=== PATIENT | male | born 1945 | race Caucasian/White ===

== ENCOUNTER 2017-03-09 02:22 | Inpatient (IN) | payer OTHER ==
[~2017-03-09] VITALS: Ht 152.4 cm; Wt 150.0 kg
[2017-03-09 02:33] VITALS: TEMP 96.6; Ht 152.4 cm; Wt 150.0 kg
[2017-03-09] MEDS ORDERED: morphine 4 MG/ML VIAL IV STA (03:07)
[2017-03-09] MEDS ORDERED: SOD CHLORIDE 0.9% 1,000 ML IV STA (03:07)
[2017-03-09] MEDS ORDERED: ONDANSETRON 4 MG INJ IV STA (03:07)
[2017-03-09 04:05] LABS: BASOPHIL # 0.1 10^3/ul (0.0-0.1); BASOPHILS % 0.4 % (0.0-2.0); EOSINOPHILS % 0.1 % (0.0-7.0); HEMATOCRIT 34.2 % (42.0-52.0); HEMOGLOBIN 11.6 g/dl (14.0-18.0); LYMPHOCYTES # 1.3 10^3/ul (0.8-2.9); LYMPHOCYTES % 8.9 % (15.0-51.0); MEAN CORPUSCULAR HEMOGLOBIN 30.2 pg (29.0-33.0); MEAN CORPUSCULAR HGB CONC 33.9 g/dl (32.0-37.0); MEAN CORPUSCULAR VOLUME 89.1 fl (82.0-101.0); MEAN PLATELET VOLUME 10.4 fl (7.4-10.4); MONOCYTE # 0.7 10^3/ul (0.3-0.9); MONOCYTES % 4.9 % (0.0-11.0); NEUTROPHIL # 12.5 10^3/ul (1.6-7.5); NEUTROPHILS % 84.8 % (39.0-77.0); PLATELET COUNT 236 10^3/UL (140-415); RED BLOOD COUNT 3.84 10^6/ul (4.70-6.10); RED CELL DISTRIBUTION WIDTH 12.8 % (11.5-14.5); WHITE BLOOD COUNT 14.8 10^3/ul (4.8-10.8)
--- NOTE | 2017-03-09 04:21 | RADRPT ---
PROCEDURE: CT Brain without contrast. CLINICAL INDICATION: Fall, headache TECHNIQUE: A CT of the brain was performed utilizing axial imaging from the skull base through the vertex without intravenous contrast. Multiplanar reformatted images were made.The CTDIvol is 41.12 mGy and the DLP is 810.25 mGycm. One or more the following dose reduction techniques were utilized: Automated exposure control, adjus tment of the mA and / or kV according to patient's size, or use of iterative reconstruction techniqu e. DICOM images are available. COMPARISON: None. FINDINGS: There is no intracranial hemorrhage, mass effect, or midline shift. No extra-axial fluid collection is seen. Mild atrophy is identified with compensatory ventricular and sulcal enlargement. Mild to moderate decreased attenuation is seen in the periventricular and deep white matter, compatible wit h microvascular ischemic disease. The may white matter differentiation is well preserved with no ac eddi infarct detected. There is an approximate 5 mm calcification in the upper right frontal parietal centrum semiovale which could represent a granuloma. No skull fracture seen. There is mucosal thick ening in right maxillary sinus consistent with chronic sinusitis. There is deformity of the right zy gomatic arch and posterior lateral wall of the right maxillary sinus consistent with old fractures. Arterial calcification. IMPRESSION: 1. No evidence of acute intracranial pathology. 2. Mild diffuse atrophy. 3. There is mild to moderate microvascular ischemic disease in the periventricular and deep white m atter. RPTAT: HJES .Raghavendra Arevalo MD, MD Date Time Electronically viewed and signed by .Raghavendra Arevalo MD, MD on 03/09/2017 04:20 .S/
--- NOTE | 2017-03-09 04:29 | RADRPT ---
PROCEDURE: CT Cervical Spine. CLINICAL INDICATION: Fall, neck pain TECHNIQUE: A CT of the cervical spine was performed utilizing thin section axial images from the skull base through the thoracic inlet. Sagittal and coronal reformatted images were made. The CTDI vol is 22.22 mGy and the DLP is 494.13 mGycm. One or more the following dose reduction techniques were utilized: Automated exposure control, adjus tment of the mA and / or kV according to patient's size, or use of iterative reconstruction techniqu e. DICOM images are available. COMPARISON: None. FINDINGS: No acute fracture is seen. There is 2 mm anterior displacement of C4 vertebral body on C5 and 3 mm a nterior displacement of C7 vertebral body on T1 consistent with degenerative changes. Degenerative d isc changes at multiple levels greatest at C5-6 and C6-7. Facet degenerative changes throughout the cervical spine. Degenerative changes at the joint between the anterior arch of C1 and the dens. Unco vertebral degenerative changes throughout the cervical spine. There is minimal curvature of the cerv ical spine with convexity to the right. At C4-5 there is right foraminal stenosis. At C5-6 there is left foraminal stenosis. At C6-7 there is bilateral foraminal stenosis. Status post ORIF of proximal left humerus with plate and screws. IMPRESSION: No acute fracture seen. Degenerative changes. Please see above. RPTAT: HJES .Raghavendra Arevalo MD, MD Date Time Electronically viewed and signed by .Raghavendra Arevalo MD, on 03/09/2017 04:28 .S/
[2017-03-09 04:42] LABS: ALBUMIN 4.3 g/dl (3.3-4.9); ALBUMIN/GLOBULIN RATIO 1.22; BILIRUBIN,INDIRECT 0.2 mg/dl (0-1.1); BILIRUBIN,TOTAL 0.2 mg/dl (0.2-1.3); CALCIUM 8.2 mg/dl (8.4-10.2); CREATININE 1.41 mg/dl (0.61-1.24); POTASSIUM 3.7 mmol/L (3.5-5.1); TOTAL PROTEIN 7.8 g/dl (6.1-8.1)
[2017-03-09 04:53] LABS: TROPONIN-I 0.028 ng/ml (0.00-0.12)
[2017-03-09 04:59] LABS: ADD UMIC YES; UR ASCORBIC ACID NEGATIVE (NEGATIVE); UR BILIRUBIN (Dip) NEGATIVE (NEGATIVE); UR BLOOD (Dip) 2+ mg/dL (NEGATIVE); UR CLARITY CLEAR (CLEAR); UR COLOR STRAW (YELLOW); UR GLUCOSE (Dip) NEGATIVE (NEGATIVE); UR KETONES (Dip) NEGATIVE (NEGATIVE); UR LEUKOCYTE ESTERASE (Dip) NEGATIVE Leu/ul (NEGATIVE); UR NITRITE (Dip) NEGATIVE (NEGATIVE); UR RBC 5 /HPF (0-5); UR SPECIFIC GRAVITY (Dip) 1.008 (1.003-1.030); UR TOTAL PROTEIN (Dip) 2+ mg/dl (NEGATIVE); UR UROBILINOGEN (Dip) NEGATIVE (NEGATIVE)
--- NOTE | 2017-03-09 05:40 | RADRPT ---
PROCEDURE: CHEST - 1 VIEW CLINICAL INDICATION: 71-year-old male with chest/abdominal pain. TECHNIQUE: A single frontal AP semi-erect portable view of the chest was performed. The images we re reviewed on a PACS workstation. COMPARISON: None. FINDINGS: The cardiomediastinal silhouette is within normal limits. There is a shallow inspiration with elevat ion right hemidiaphragm. There is mild right basilar subsegmental atelectasis. There is no evidence for an infiltrate. There is no evidence for congestive heart failure. There is no evidence for pne umothorax. There is a plate and multiple screws within the proximal left humerus. IMPRESSION: 1. Shallow inspiration with elevated right hemidiaphragm. 2. Mild right basilar subsegmental atelectasis. 3. Status post left proximal humerus ORIF. .Mahad Huerta MD, Date Time Electronically viewed and signed by .Mahad Huerta MD, on 03/09/2017 05:39 .M/
--- NOTE | 2017-03-09 05:45 | RADRPT ---
PROCEDURE: LEFT ELBOW - 6 VIEWS CLINICAL INDICATION: 71-year-old male with trauma and left elbow pain. TECHNIQUE: AP, lateral and oblique views of the left elbow were obtained. The images were viewed on a PACS workstation. COMPARISON: None. FINDINGS: There is no evidence for an acute fracture or dislocation. There is evidence for marked degenerative changes within the elbow joint involving the humeroradial, humeroulnar and radioulnar joints with n arrowing and sclerosis. Osteophyte formation is noted. The partially visualized radioulnar joint spa ce appears intact. The bone marrow mineralization is within normal limits. IMPRESSION: 1. No acute fracture or dislocation. 2. Degenerative changes elbow joint. .Mahad Huerta MD, Date Time Electronically viewed and signed by .Mahad Huerta MD, on 03/09/2017 05:45 .M/
--- NOTE | 2017-03-09 05:50 | RADRPT ---
PROCEDURE: LEFT HIP - 3 VIEWS CLINICAL INDICATION: 71-year-old male with trauma and left hip pain. TECHNIQUE: AP and frog lateral views of the left hip were performed. The images reviewed on a PACS workstation. COMPARISON: None. FINDINGS: There are changes are seen within the partially visualized lower lumbar spine. There is a displaced left femoral mid neck transcervical fracture present with shortening and overriding. Degenerative ch anges are seen within the hip joint without evidence for dislocation. Vascular calcifications are pr esent. IMPRESSION: 1. Acute left femoral neck transcervical fracture. 2. Mild left hip degenerative changes without dislocation. 3. Vascular calcifications. .Mahad Huerta MD, MD Date Time Electronically viewed and signed by .Mahad Huerta MD, on 03/09/2017 05:50 .Lorena/
--- NOTE | 2017-03-09 07:19 | ERD ---
ER Documentation Chief Complaint Chief Complaint HPI This 71 old male presents for hip pain after a fall while he was drunk. Patient is intoxicated and states that he fell when he felt fine and did not have any chest pain. He does not think that he hit his head. He has an abrasion on his elbow but states that it does not hurt his maximum pain is coming from his left hip on the trochanter. Denies medical problems. ROS All systems reviewed and are negative except as per history of present illness the patient is unreliable because he is intoxicated.. PMhx/Soc Medical and Surgical Hx: Unable to obtain Hx Miscellaneous Medical Probl: Yes (DIABETES) Hx Alcohol Use: Yes (POSITIVE ETOH USE TONIGHT) Smoking Status: Unknown if ever smoked Physical Exam Vitals Vital Signs Date Time Temp Pulse Resp B/P Pulse Ox O2 Delivery O2 Flow Rate FiO2 03/09/17 05:00 108 18 160/81 93 Room Air 03/09/17 02:33 96.6 100 21 136/67 96 03/09/17 02:33 96.6 100 21 136/67 96 Room Air Physical Exam Const: [] No distress Head: Atraumatic Eyes: Normal Conjunctiva ENT: Normal External Ears, Nose and Mouth. Neck: Full range of motion..~Midline tenderness.. Resp: Clear to auscultation bilaterally Cardio: Regular rate and rhythm, no murmurs Abd: Soft, non tender, non distended. Normal bowel sounds Skin: No petechiae or rashes Back: No midline or flank tenderness Ext: No cyanosis, or edema, pain at left greater trochanter. Patient is unwilling to move his leg secondary to pain. Neur: Awake and alert and oriented 3, cranial nerves through 2 through 12 grossly intact, slurred speech with obvious intoxication. Unable to perform full neurological exam secondary to patient's unwillingness to move because of hip pain. Left elbow with abnormal contour and abrasions. Does not have tenderness. Psych: Normal Mood and Affect Result Diagram: 03/09/1732803/09/17328 Results 24 hrs Laboratory Tests Test 03/09/17 03:29 03/09/17 04:30 White Blood Count 14.810^3/ul Red Blood Count 3.8410^6/ul Hemoglobin 11.6g/dl Hematocrit 34.2% Mean Corpuscular Volume 89.1fl Mean Corpuscular Hemoglobin 30.2pg Mean Corpuscular Hemoglobin Concent 33.9g/dl Red Cell Distribution Width 12.8% Platelet Count 07648^3/UL Mean Platelet Volume 10.4fl Neutrophils % 84.8% Lymphocytes % 8.9% Monocytes % 4.9% Eosinophils % 0.1% Basophils % 0.4% Nucleated Red Blood Cells % 0.0/100WBC Neutrophils # 12.510^3/ul Lymphocytes # 1.310^3/ul Monocytes # 0.710^3/ul Eosinophils # 0.010^3/ul Basophils # 0.110^3/ul Nucleated Red Blood Cells # 0.010^3/ul Sodium Level 131mmol/L Potassium Level 3.7mmol/L Chloride Level 91mmol/L Carbon Dioxide Level 25mmol/L Anion Gap 19 Blood Urea Nitrogen 26mg/dl Creatinine 1.41mg/dl Glucose Level 146mg/dl Calcium Level 8.2mg/dl Total Bilirubin 0.2mg/dl Direct Bilirubin 0.00mg/dl Indirect Bilirubin 0.2mg/dl Aspartate Amino Transf (AST/SGOT) 44IU/L Alanine Aminotransferase (ALT/SGPT) 40IU/L Alkaline Phosphatase 95IU/L Troponin I 0.028ng/ml Total Protein 7.8g/dl Albumin 4.3g/dl Globulin 3.50g/dl Albumin/Globulin Ratio 1.22 Ethyl Alcohol Level 195.0mg/dl Urine Color STRAW Urine Clarity CLEAR Urine pH 5.0 Urine Specific [place] 1.008 Urine Ketones NEGATIVEmg/dL Urine Nitrite NEGATIVEmg/dL Urine Bilirubin NEGATIVEmg/dL Urine Urobilinogen NEGATIVEmg/dL Urine Leukocyte Esterase NEGATIVELeu/ul Urine Microscopic RBC 5/HPF Urine Microscopic WBC 1/HPF Urine Hemoglobin 2+mg/dL Urine Glucose NEGATIVEmg/dL Urine Total Protein 2+mg/dl Current Medications Medications (Trade) Dose Ordered Sig/Tommy Route PRN Reason Start Time Stop Time Status Last Admin Dose Admin Sodium Chloride (NS) 1,000 ml @ 1,000 mls/hr Q1H STAT IV 03/09/17 03:07 03/09/17 04:06 DC 03/09/17 03:26 Morphine Sulfate (morphine) 4 mg ONCE STAT IV 03/09/17 03:07 03/09/17 03:12 DC 03/09/17 03:26 Ondansetron HCl (Zofran Inj) 4 mg ONCE STAT IV 03/09/17 03:07 03/09/17 03:12 DC 03/09/17 03:26 Diphtheria/ Tetanus/Acell Pertussis (Adacel) 0.5 ml ONCE ONCE IM* 03/09/17 07:30 03/09/17 07:31 UNV Procedures/MDM Intoxicated male with left intertrochanteric hip fracture. Elbow abrasion as well. Patient has mild nonspecific leukocytosis with no signs of obvious infection. CT head and neck were performed because of unable to clear the patient with Nexus criteria because of intoxication and possible head injury and intoxicated patient. No signs of any other serious injury. Elbow deformity appears to be chronic on x-ray. Patient was given multiple doses of morphine for his hip pain. Also has renal insufficiency and was given 2 L of normal saline. Her made to place a knee immobilizer and patient refused this and did not want to move from his current position. I spoke with Dr. Ponce, repeat is done call who is aware of the patient requested the patient be placed n.p.o. and was given a DTaP shot. Patient be admitted to panel for medical management. Chest x-ray interpretation: I see no acute process, I see no fracture, no infiltrate, no widened mediastinum, no pneumothorax. Left hip x-ray interpretation: Intertrochanteric left hip fracture with some shortening and angulation, no other fracture dislocation seen Left elbow x-ray interpretation: Chronic deformity of left elbow with smooth appearance of abnormal bony growth possibly secondary to poorly healed fracture in the past. No dislocation The brain interpretation: I see no acute process. I see no fracture, no hemorrhage, no mass-effect, no midline shift, no skull fracture CT spine interpretation: I see no acute fracture dislocation or subluxation. Departure Diagnosis: Primary Impression: Closed left hip fracture Additional Impressions: Alcohol intoxication Renal insufficiency Elbow contusion Leukocytosis Condition: Stable ANTHONYDASHAWNPINAPEDRO NUGENT Mar 09, 2017 07:19
[2017-03-09] MEDS ORDERED: SOD CHLORIDE 0.9% 1,000 ML IV ONE (07:30)
[2017-03-09] MEDS ORDERED: DIPHTH/TET/ACEL PERTUSS (ADULT) 0.5 ML VIAL IM* ONE (07:30)
[2017-03-09] MEDS ORDERED: ONDANSETRON 4 MG INJ IV PRN ×2 (07:30→09:00)
[2017-03-09] MEDS ORDERED: ACETAMINOPHEN 325 MG TAB PO PRN (07:30)
[2017-03-09 07:42] LABS: INR 0.9; PROTIME 12.1 Sec (12.2-14.2); PT RATIO 0.9
[2017-03-09 07:43] LABS: PARTIAL THROMBOPLASTIN TIME 29.7 Sec (25.0-35.0)
[2017-03-09 08:26] VITALS: BP 137/79; RESP 18
[2017-03-09] MEDS ORDERED: DOCUSATE SODIUM 100 MG CAP PO PRN (09:00)
[2017-03-09] MEDS ORDERED: NACL 0.9% 3 ML SYG IV SCH (09:00)
--- NOTE | 2017-03-09 09:09 | HP ---
Date/Time of Note Date/Time of Note DATE: 03/09/17 TIME: 09:09 Assessment/Plan VTE Prophylaxis VTE Prophylaxis Intervention: heparin Assessment/Plan Assessment/Plan 1. Acute left femoral neck fracture - Ortho consulted and recommendations appreciated. Discussed treatment plans with family and will await their decision. Patient is noncompliant and post operative precautions may be an issue given patients alcohol abuse and frequent falls - Pain control - Await patient/family's decision 2. KIT - will give IVF and continue to monitor - If no improvement, will workup and possibly consult nephrology 3. Hyponatremia - Most likely secondary to dehydration - Will continue to monitor 4. Diabetes Mellitus, well controlled - A1c 6.1 - hold home PO medications - ISS and accuchecks 5. Anemia - will order iron studies 6. HTN - will continue to monitor. - on home BP medications but unsure name 7. ETOH abuse - Per daughter, patient does not drink daily but when he does its heavily - Ativan PRN - No need for librium at this time - Will monitor Lytes and replace as needed 8. leukocytosis - possibly reactive - will monitor 9. GI ppx - PPI 10. DVT ppx - Heparin 11. Code - Full 12. Diet - Carb controlled 13. Disposition - Continue to monitor on med/surg - Sitter due to patient being a fall risk and noncompliant - Ortho to reevaluate on Saturday HPI/ROS Admit Date/Time Admit Date/Time Mar 09, 2017 at 08:20 Hx of Present Illness 71 yo with PMH DM. HTN, and alcohol abuse presented to ED after experiencing a fall. Patient daughter at bedside and history obtained from patient as well as family. Patient is noncompliant and does not take medications as prescribed. Per daughter, patient drinks 2 times per week but when he does drink, its in mass quantities. Patient does not recall what brought him to the hospital or that he fell. Patient is c/o severe pain in left hip and unable to lay in bed due to discomfort. Denies any numbness, tingling, nausea, vomiting, chest pain, or shortness of breath. Patient stated he does not want to live like he has been, needing to take medications all the time but denies any suicidal ideations. Per daughter, patient does not listen and falls often while intoxicated with recent admission to [facility] for head trauma. ROS All 12 systems reviewed and pertinent positives as per HPI. All other negative. Constitutional: fatigue, No disoriented, No febrile, No nausea Eyes: no complaints ENT: no complaints, No congestion Respiratory: no complaints, No cough, No shortness of breath, No sputum, No wheezing Cardiovascular: No chest pain, No lightheadedness, No orthopenea, No palpitations Gastrointestinal: No constipation, No diarrhea, No nausea, No pain, No vomiting Genitourinary: no complaints Musculoskeletal: bone/joint pain (left hip), restricted range of motion ( secondary to pain) Skin: No bruising, No laceration, No pruritis Neurologic: no complaints Endocrine: no complaints Lymphatic: no complaints Psychological: depression, No suicidal Immunologic: no complaints PMH/Family/Social Past Medical History Medical History: diabetes, hypertension, other (alcohol abuse) Past Surgical History Past Surgical Hx: no surgical history Family History Significant Family History: no pertinent family hx Social History Alcohol Use: occasionally Smoking Status: Unknown if ever smoked Drug Use: none Exam/Review of Systems Vital Signs Vitals Vital Signs Date Time Temp Pulse Resp B/P Pulse Ox O2 Delivery O2 Flow Rate FiO2 03/09/17 08:26 98.3 111 18 137/79 96 03/09/17 07:20 Room Air Exam Constitutional: alert, distress (secondary to pain), oriented, well developed Psych: depression Head: atraumatic, normocephalic Eyes: EOMI, PERRL ENMT: mucosa pink and moist Neck: non-tender, supple Respiratory: clear to auscultation, diminished breath sounds, No crackles/rales, No wheezing Cardiovascular: regular rate and rhythm, No irregular rhythm Gastrointestinal: bowel sounds, non-tender, soft, No distended, No rebound or guarding Genitourinary - Male: No CVA tenderness Musculoskeletal: range of motion (diminished left hip secondary to pain) Extremities: No cyanosis, No edema, No pitting pedal edema Neurological: DOCUMENTATION IMPROVEMENT SPECIALIST II-XII intact, 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 Skin: nl turgor Lymph: nl lymph nodes Labs Result Diagram: 03/09/179 03/09/179 Medications Medications Home medications reviewed Procedures Procedures PROCEDURE: LEFT HIP - 3 VIEWS CLINICAL INDICATION: 71-year-old male with trauma and left hip pain. TECHNIQUE: AP and frog lateral views of the left hip were performed. The images reviewed on a PACS workstation. COMPARISON: None. FINDINGS: There are changes are seen within the partially visualized lower lumbar spine. There is a displaced left femoral mid neck transcervical fracture present with shortening and overriding. Degenerative changes are seen within the hip joint without evidence for dislocation. Vascular calcifications are present. IMPRESSION: 1. Acute left femoral neck transcervical fracture. 2. Mild left hip degenerative changes without dislocation. 3. Vascular calcifications. PROCEDURE: LEFT ELBOW - 6 VIEWS CLINICAL INDICATION: 71-year-old male with trauma and left elbow pain. TECHNIQUE: AP, lateral and oblique views of the left elbow were obtained. The images were viewed on a PACS workstation. COMPARISON: None. FINDINGS: There is no evidence for an acute fracture or dislocation. There is evidence for marked degenerative changes within the elbow joint involving the humeroradial, humeroulnar and radioulnar joints with narrowing and sclerosis. Osteophyte formation is noted. The partially visualized radioulnar joint space appears intact. The bone marrow mineralization is within normal limits. IMPRESSION: 1. No acute fracture or dislocation. 2. Degenerative changes elbow joint. PROCEDURE: CT Cervical Spine. CLINICAL INDICATION: Fall, neck pain TECHNIQUE: A CT of the cervical spine was performed utilizing thin section axial images from the skull base through the thoracic inlet. Sagittal and coronal reformatted images were made. The CTDIvol is 22.22 mGy and the DLP is 494.13 mGycm. One or more the following dose reduction techniques were utilized: Automated exposure control, adjustment of the mA and / or kV according to patient's size, or use of iterative reconstruction technique. DICOM images are available. COMPARISON: None. FINDINGS: No acute fracture is seen. There is 2 mm anterior displacement of C4 vertebral body on C5 and 3 mm anterior displacement of C7 vertebral body on T1 consistent with degenerative changes. Degenerative disc changes at multiple levels greatest at C5-6 and C6-7. Facet degenerative changes throughout the cervical spine. Degenerative changes at the joint between the anterior arch of C1 and the dens. Uncovertebral degenerative changes throughout the cervical spine. There is minimal curvature of the cervical spine with convexity to the right. At C4-5 there is right foraminal stenosis. At C5-6 there is left foraminal stenosis. At C6-7 there is bilateral foraminal stenosis. Status post ORIF of proximal left humerus with plate and screws. IMPRESSION: No acute fracture seen. Degenerative changes. Please see above. PROCEDURE: CT Brain without contrast. CLINICAL INDICATION: Fall, headache TECHNIQUE: A CT of the brain was performed utilizing axial imaging from the skull base through the vertex without intravenous contrast. Multiplanar reformatted images were made.The CTDIvol is 41.12 mGy and the DLP is 810.25 mGycm. One or more the following dose reduction techniques were utilized: Automated exposure control, adjustment of the mA and / or kV according to patient's size, or use of iterative reconstruction technique. DICOM images are available. COMPARISON: None. FINDINGS: There is no intracranial hemorrhage, mass effect, or midline shift. No extra- axial fluid collection is seen. Mild atrophy is identified with compensatory ventricular and sulcal enlargement. Mild to moderate decreased attenuation is seen in the periventricular and deep white matter, compatible with microvascular ischemic disease. The may white matter differentiation is well preserved with no acute infarct detected. There is an approximate 5 mm calcification in the upper right frontal parietal centrum semiovale which could represent a granuloma. No skull fracture seen. There is mucosal thickening in right maxillary sinus consistent with chronic sinusitis. There is deformity of the right zygomatic arch and posterior lateral wall of the right maxillary sinus consistent with old fractures. Arterial calcification. IMPRESSION: 1. No evidence of acute intracranial pathology. 2. Mild diffuse atrophy. 3. There is mild to moderate microvascular ischemic disease in the periventricular and deep white matter. PROCEDURE: CHEST - 1 VIEW CLINICAL INDICATION: 71-year-old male with chest/abdominal pain. TECHNIQUE: A single frontal AP semi-erect portable view of the chest was performed. The images were reviewed on a PACS workstation. COMPARISON: None. FINDINGS: The cardiomediastinal silhouette is within normal limits. There is a shallow inspiration with elevation right hemidiaphragm. There is mild right basilar subsegmental atelectasis. There is no evidence for an infiltrate. There is no evidence for congestive heart failure. There is no evidence for pneumothorax. There is a plate and multiple screws within the proximal left humerus. IMPRESSION: 1. Shallow inspiration with elevated right hemidiaphragm. 2. Mild right basilar subsegmental atelectasis. 3. Status post left proximal humerus ORIF. KRISH SANTIAGO MD Mar 09, 2017 09:09
[2017-03-09] MEDS: SOD CHLORIDE 0.9% 1,000 ML IV SCH ×2 (09:42→18:41)
[2017-03-09] MEDS: HYDROmorphONE 0.5 MG/0.5 ML SYG IV PRN ×3 (10:29→23:47)
--- NOTE | 2017-03-09 12:54 | CONS ---
DATE OF ADMISSION: 03/09/2017 DATE OF CONSULTATION: 03/09/2017 ORTHOPEDIC CONSULTATION CHIEF COMPLAINT: Left hip pain. HISTORY OF PRESENT ILLNESS: This is a 71-year-old male with history of alcoholism who had a fall wi th complaint of left hip pain. He denies any chest pain prior to the fall. He denies any history o f hip pain prior to the fall. Patient is unable to give a good history. According to his , he has a history of alcoholism with falls on a daily basis. He does not use any assistive devices. Ot herwise, he has no complaints. PAST MEDICAL HISTORY: Hypertension, alcoholism, also diabetes. MEDICATIONS: None. PAST SURGICAL HISTORY: None. SOCIAL HISTORY: Patient denies tobacco use. He admits to daily alcohol use of unknown amount. FAMILY HISTORY: Noncontributory. ALLERGIES: NO KNOWN DRUG ALLERGIES. PHYSICAL EXAMINATION: VITAL SIGNS: 96.6, 136/67, pulse of 100, respiratory rate of 21. GENERAL: The patient is comfortable, in no acute distress. LEFT HIP: There is pain with axial loading. He is neurovascularly intact throughout the left lower extremity. There are no open wounds. IMAGIN. X-rays of the left hip: There is a displaced fracture of the left femoral neck. There are mini mal degenerative changes of the left hip. 2. Elbow x-rays: No fractures or dislocations are seen. IMPRESSION: A 71-year-old male with history of alcoholism who had a fall resulting in a left closed displaced femoral neck fracture. PLAN: I discussed treatment options with the patient and his . I explained to the patient that he requires a left hip hemiarthroplasty versus total hip arthroplasty. I also discussed the risks associated with surgery, which include but are not limited to infection, deep venous thrombosis, pul monary embolism, damage to nerves and blood vessels, leg length discrepancy, fracture, need for bloo d transfusion, dislocation and risks associated with anesthesia. According to his , the patient is an alcoholic and noncompliant. He was supposed to attend AA, but refused. According to his wif e, he has falls on a daily basis due to instability and alcoholism. I discussed with the patient th at he requires postoperative precautions. He stated that he is unable to follow them. I explained to them that given his history of alcoholism, he is at a high risk of postoperative dislocation frac ture, as well as infection due to his history of diabetes. Patient will require preoperative cleara nce. The family would like to think about treatment options. Dictated By: SHOSHANA WEAVER MD SS/NTS Conf#: [id number] DID#: [id number] CC: AZUL GONCALVES MD;*EndCC*
[2017-03-09] MEDS: INSULIN ASPART [NOVOLOG] 3 ML PEN SC SCH ×3 (12:58→20:32)
[2017-03-09] MEDS ORDERED: LABETALOL HCL 20MG INJ IV PRN (18:00)
[2017-03-09] MEDS: LORAZEPAM 2 MG INJ IM PRN (18:07)
[2017-03-09 19:00] VITALS: BP 173/87; RESP 20
[2017-03-09] MEDS: HYDROCODONE/APAP (5/325) TAB PO PRN (19:30)
[2017-03-09] MEDS: HEPARIN 5,000 UNIT/0.5 ML VIAL SC SCH (20:24)
[2017-03-10] VITALS (9 sets, daily range): BP systolic 131–220; BP diastolic 59–112; RESP 16–22
[2017-03-10] MEDS: INSULIN ASPART [NOVOLOG] 3 ML PEN SC SCH ×2 (01:00→04:54)
[2017-03-10] MEDS: ACCU-CHEK XX SCH (02:42)
[2017-03-10] MEDS: HYDROCODONE/APAP (5/325) TAB PO PRN (02:43)
[2017-03-10] MEDS: SOD CHLORIDE 0.9% 1,000 ML IV SCH ×2 (04:41→13:45)
[2017-03-10] MEDS: HYDROmorphONE 0.5 MG/0.5 ML SYG IV PRN ×4 (05:01→23:02)
[2017-03-10] MEDS: PANTOPRAZOLE (EC) 40 MG TAB PO SCH (05:01)
[2017-03-10 05:10] LABS: BASOPHIL # 0.1 10^3/ul (0.0-0.1); BASOPHILS % 0.6 % (0.0-2.0); EOSINOPHILS # 0.1 10^3/ul (0.0-0.5); EOSINOPHILS % 1.2 % (0.0-7.0); MEAN CORPUSCULAR HEMOGLOBIN 30.6 pg (29.0-33.0); MEAN CORPUSCULAR HGB CONC 34.4 g/dl (32.0-37.0); MEAN CORPUSCULAR VOLUME 88.9 fl (82.0-101.0); MEAN PLATELET VOLUME 10.4 fl (7.4-10.4); MONOCYTE # 0.8 10^3/ul (0.3-0.9); MONOCYTES % 10.2 % (0.0-11.0); NEUTROPHIL # 6.1 10^3/ul (1.6-7.5); NEUTROPHILS % 75.6 % (39.0-77.0); PLATELET COUNT 211 10^3/UL (140-415); RED CELL DISTRIBUTION WIDTH 12.7 % (11.5-14.5); WHITE BLOOD COUNT 8.1 10^3/ul (4.8-10.8)
[2017-03-10 05:51] LABS: ALBUMIN 3.4 g/dl (3.3-4.9); ALBUMIN/GLOBULIN RATIO 0.89; BILIRUBIN,INDIRECT 0.5 mg/dl (0-1.1); BILIRUBIN,TOTAL 0.5 mg/dl (0.2-1.3); CALCIUM 8.7 mg/dl (8.4-10.2); CREATININE 1.15 mg/dl (0.61-1.24); MAGNESIUM 1.9 mg/dl (1.7-2.5); POTASSIUM 3.8 mmol/L (3.5-5.1); TOTAL PROTEIN 7.2 g/dl (6.1-8.1)
[2017-03-10] MEDS ORDERED: INSULIN ASPART [NOVOLOG] 3 ML PEN SC SCH (08:30)
[2017-03-10] MEDS: Insulin NOVOLOG SS MILD Algorithm (SS with meals and bedtime) SC SCH ×4 (08:39→21:24)
[2017-03-10] MEDS: HEPARIN 5,000 UNIT/0.5 ML VIAL SC SCH (08:49)
[2017-03-10] MEDS ORDERED: INFLUENZA VIRUS VACCINE 0.5 ML SYG IM* ONE (09:00)
[2017-03-10] MEDS: AMLODIPINE 5 MG TAB PO SCH (09:39)
[2017-03-10] MEDS: LORAZEPAM 2 MG INJ IM PRN (09:40)
--- NOTE | 2017-03-10 11:09 | PN ---
Date/Time of Note Date/Time of Note DATE: 03/10/17 TIME: 11:09 Assessment/Plan VTE Prophylaxis VTE Prophylaxis Intervention: heparin Lines/Catheters IV Catheter Type (from Nrsg): Peripheral IV Urinary Cath still in place: Yes Reason Cath still needed: skin wounds contaminated by urine Assessment/Plan Assessment/Plan 1. Acute left femoral neck fracture - Ortho consulted and recommendations appreciated. Discussed treatment plans with family and will await their decision. Patient is noncompliant and post operative precautions may be an issue given patients alcohol abuse and frequent falls. When spoke to patient about surgery this am, he responded if he needs it he will agree to it. Plans for reevaluation on Saturday - Pain control - Await patient/family's decision 2. KIT- resolving - on IVF and will continue for another 3. Hyponatremia- resolved - Most likely secondary to dehydration - Will continue to monitor 4. Diabetes Mellitus, well controlled - A1c 6.1 - hold home PO medications - ISS and accuchecks 5. Anemia - stable 6. HTN - will continue to monitor. - on home BP medications but unsure name - Started on Norvasc and will adjust as needed 7. ETOH abuse - Per daughter, patient does not drink daily but when he does its heavily - Ativan PRN - No need for librium at this time - Will monitor Lytes and replace as needed 8. leukocytosis- resolved - will monitor 9. 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 Disposition - Continue monitoring on med/surg. Awaiting family decision regarding surgical intervention Subjective 24 Hr Interval Summary Free Text/Dictation Patient states he is feeling better and pain controlled with IV medications. Per sitter, patient still not following instructions to not get out of bed. No acute overnight events and no new complaints. Exam/Review of Systems Vital Signs Vitals Vital Signs Date Time Temp Pulse Resp B/P Pulse Ox O2 Delivery O2 Flow Rate FiO2 03/10/17 07:37 98.2 89 19 131/59 99 03/09/17 07:20 Room Air Intake and Output 03/09/17 03/09/17 03/10/17 14:59 22:59 06:59 Intake Total 1000 ml 1250 ml 480 ml Output Total 2800 ml 2500 ml Balance 1000 ml -1550 ml -2020 ml Exam Constitutional: alert,no acute distress, oriented, well developed Head: atraumatic, normocephalic Eyes: EOMI, PERRL ENMT: mucosa pink and moist Neck: non-tender, supple Respiratory: clear to auscultation, diminished breath sounds, No crackles/rales , No wheezing Cardiovascular: regular rate and rhythm, No murmurs Gastrointestinal: bowel sounds, non-tender, soft, No distended, No rebound or guarding Musculoskeletal: diminished ROM secondray to pain in left hip Extremities: No cyanosis, No edema, No pitting pedal edema 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, 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 Results Result Diagram: 03/10/17 0426 03/10/17 042 Results 24 hrs Laboratory Tests Test 03/09/17 12:51 03/09/17 17:38 03/09/17 20:13 03/10/17 02:41 Bedside Glucose 118 145 188 144 Test 03/10/17 04:26 03/10/17 04:53 03/10/17 08:34 White Blood Count 8.1 # Red Blood Count 3.60 L Hemoglobin 11.0 L Hematocrit 32.0 L Mean Corpuscular Volume 88.9 Mean Corpuscular Hemoglobin 30.6 Mean Corpuscular Hemoglobin Concent 34.4 Red Cell Distribution Width 12.7 Platelet Count 211 Mean Platelet Volume 10.4 Neutrophils % 75.6 Lymphocytes % 12.0 L Monocytes % 10.2 Eosinophils % 1.2 Basophils % 0.6 Nucleated Red Blood Cells % 0.0 Neutrophils # 6.1 Lymphocytes # 1.0 Monocytes # 0.8 Eosinophils # 0.1 Basophils # 0.1 Nucleated Red Blood Cells # 0.0 Sodium Level 136 Potassium Level 3.8 Chloride Level 102 # Carbon Dioxide Level 27 Anion Gap 11 # Blood Urea Nitrogen 18 Creatinine 1.15 Glucose Level 118 Calcium Level 8.7 Magnesium Level 1.9 Total Bilirubin 0.5 Direct Bilirubin 0.00 Indirect Bilirubin 0.5 Aspartate Amino Transf (AST/SGOT) 35 Alanine Aminotransferase (ALT/SGPT) 38 Alkaline Phosphatase 80 Total Protein 7.2 Albumin 3.4 Globulin 3.80 H Albumin/Globulin Ratio 0.89 Bedside Glucose 132 160 Medications Medications Current Medications Sodium Chloride (NS) 1,000 ml @ 100 mls/hr Q10H IV Last administered on t 09:42; Admin Dose 100 MLS/HR; Start 03/09/17 at 08:41 Ondansetron HCl (Zofran Inj) 4 mg Q6H PRN IV NAUSEA AND/OR VOMITING; Start 03/15 at 09:00 Acetaminophen (Tylenol Tab) 650 mg Q6H PRN PO PAIN LEVEL 1-3 OR FEVER; Start 03/09/17 at 09:00 Acetaminophen/ Hydrocodone Bitart ([place] (5/325)) 1 tab Q6H PRN PO MODERATE PAIN LEVEL 4-6 Last administered on 03/10/17 02:43; Admin Dose 1 TAB; Start 03/09/17 at 09:00 Morphine Sulfate (morphine) 2 mg Q4H PRN IV SEVERE PAIN LEVEL 7-10; Start 03/15 at 09:00 Hydromorphone HCl (Dilaudid) 0.5 mg Q4H PRN IV SEVERE PAIN LEVEL 7-10 Last administered on 03/10/17 05:01; Admin Dose 0.5 MG; Start 03/09/17 at 09:00 Docusate Sodium (Colace) 100 mg Q12H PRN PO CONSTIPATION; Start 03/09/17 at 09 :00 Magnesium Hydroxide (Milk Of Mag) 30 ml DAILY PRN PO CONSTIPATION; Start 03/09 at 09:00 Pantoprazole (Protonix Tab) 40 mg DAILY@06 PO Last administered on 03/10/17 05:01; Admin Dose 40 MG; Start 03/10/17 at 06:00 Lorazepam (Ativan) 1 mg Q4H PRN IM agitation, anxiety Last administered on 09:40; Admin Dose 1 MG; Start 03/09/17 at 09:00 Diagnostic Test (Pha) (Accu-Chek) 1 ea 02 XX Last administered on 03/10/17 02 :42; Admin Dose 1 EA; Start 03/10/17 at 02:00 Heparin Sodium (Porcine) (Heparin (5000 Units/0.5 ml)) 5,000 unit Q12 SC Last administered on 03/10/17 08:49; Admin Dose 5,000 UNIT; Start 03/09/17 at 21: 00 Clonidine (Catapres) 0.1 mg Q6H PRN PO ELEVATED SYSTOLIC BP Last administered on 03/09/17 20:58; Admin Dose 0.1 MG; Start 03/09/17 at 20:30 Amlodipine Besylate (Norvasc) 5 mg DAILY PO Last administered on 03/10/17t 09: 39; Admin Dose 5 MG; Start 03/10/17 at 09:00 KRISH SANTIAGO MD Mar 10, 2017 11:09
[2017-03-10] MEDS ORDERED: DEXTROSE 50% 50 ML SYRINGE IV PRN ×2 (16:30)
[2017-03-10] MEDS ORDERED: GLUCOSE GEL 15 GRAM TUBE PO PRN ×2 (16:30)
[2017-03-10] MEDS ORDERED: GLUCOSE GEL 15 GRAM TUBE BUCCAL PRN (16:30)
[2017-03-10] MEDS ORDERED: GLUCAGON 1 MG INJ IM PRN (16:30)
[2017-03-10] MEDS ORDERED: LORAZEPAM 0.5 MG TAB PO PRN (17:40)
[2017-03-10] MEDS ORDERED: hydrALAzine 20 MG INJ ONE (17:43)
[2017-03-10] MEDS: hydrALAzine 20 MG INJ IV PRN (17:49)
[2017-03-10] MEDS: LORAZEPAM 2 MG INJ IV PRN (18:00)
[2017-03-10] MEDS: ASCORBIC ACID 500 MG TAB PO SCH (21:22)
[2017-03-11] VITALS (17 sets, daily range): BP systolic 138–187; BP diastolic 65–91; PULSE 100–145; RESP 18–20
[2017-03-11] MEDS: SOD CHLORIDE 0.9% 1,000 ML IV SCH ×3 (00:01→14:41)
[2017-03-11] MEDS: ACCU-CHEK XX SCH (01:59)
[2017-03-11] MEDS: HYDROmorphONE 0.5 MG/0.5 ML SYG IV PRN ×2 (03:17→12:29)
[2017-03-11] MEDS: PANTOPRAZOLE (EC) 40 MG TAB PO SCH (05:10)
[2017-03-11 06:16] LABS: BASOPHIL # 0.1 10^3/ul (0.0-0.1); BASOPHILS % 0.8 % (0.0-2.0); EOSINOPHILS # 0.2 10^3/ul (0.0-0.5); EOSINOPHILS % 2.1 % (0.0-7.0); HEMATOCRIT 34.8 % (42.0-52.0); HEMOGLOBIN 11.7 g/dl (14.0-18.0); LYMPHOCYTES # 1.4 10^3/ul (0.8-2.9); LYMPHOCYTES % 17.3 % (15.0-51.0); MEAN CORPUSCULAR HEMOGLOBIN 30.2 pg (29.0-33.0); MEAN CORPUSCULAR HGB CONC 33.6 g/dl (32.0-37.0); MEAN CORPUSCULAR VOLUME 89.9 fl (82.0-101.0); MEAN PLATELET VOLUME 10.8 fl (7.4-10.4); MONOCYTES % 11.6 % (0.0-11.0); NEUTROPHIL # 5.6 10^3/ul (1.6-7.5); PLATELET COUNT 216 10^3/UL (140-415); RED BLOOD COUNT 3.87 10^6/ul (4.70-6.10); WHITE BLOOD COUNT 8.3 10^3/ul (4.8-10.8)
[2017-03-11 06:43] LABS: ALBUMIN 3.6 g/dl (3.3-4.9); CALCIUM 8.9 mg/dl (8.4-10.2); CREATININE 1.12 mg/dl (0.61-1.24); PHOSPHORUS 2.9 mg/dl (2.5-4.9); POTASSIUM 3.7 mmol/L (3.5-5.1)
[2017-03-11 07:06] LABS: MAGNESIUM 1.8 mg/dl (1.7-2.5)
[2017-03-11] MEDS: AMLODIPINE 5 MG TAB PO SCH (08:27)
[2017-03-11] MEDS: MULTIVITAMINS/MINERALS TAB PO SCH (08:33)
[2017-03-11] MEDS: Insulin NOVOLOG SS MILD Algorithm (SS with meals and bedtime) SC SCH ×4 (08:33→22:00)
[2017-03-11] MEDS: ASCORBIC ACID 500 MG TAB PO SCH ×2 (08:33→21:51)
[2017-03-11] MEDS: ZINC SULFATE 220 MG CAP PO SCH (08:34)
[2017-03-11] MEDS: hydrALAzine 20 MG INJ IV PRN (09:31)
--- NOTE | 2017-03-11 09:39 | PN ---
Date/Time of Note Date/Time of Note DATE: 03/11/17 TIME: 09:18 Assessment/Plan VTE Prophylaxis VTE Prophylaxis Intervention: heparin, SCD's Lines/Catheters IV Catheter Type (from Nrsg): Peripheral IV Urinary Cath still in place: Yes Reason Cath still needed: terminal illness/intractable pain Assessment/Plan Assessment/Plan 1. Acute left femoral neck fracture - Ortho consulted and recommendations appreciated. Spoke with Ortho this am and planning to do surgery today. Discussed the risks and benefits of the operation and patient agrees to surgery - Pain control 2. KIT- resolved - continue monitoring 3. Hyponatremia- resolved - Most likely secondary to dehydration - Will continue to monitor 4. Diabetes Mellitus, well controlled - A1c 6.1 - hold home PO medications - ISS and accuchecks 5. Anemia - stable 6. HTN - will continue to monitor. - Started on Norvasc and will adjust as needed. BP elevated which is most likely secondary to pain. Given BP meds. Asymptomatic 7. ETOH abuse - Per daughter, patient does not drink daily but when he does its heavily - Ativan PRN - No need for librium at this time 8. leukocytosis- resolved - will monitor 9. Disposition - Patient is medically cleared for surgery today. Patient has no cardiac history and medically stable. CXR shows atelectasis but no signs of infection. EKG performed yesterday show no acute ST changes. Subjective 24 Hr Interval Summary Free Text/Dictation Patient is doing okay and still experiencing pain in left hip. Denies any new complaints and no acute overnight events. Exam/Review of Systems Vital Signs Vitals Vital Signs Date Time Temp Pulse Resp B/P Pulse Ox O2 Delivery O2 Flow Rate FiO2 03/11/17 08:10 98.9 105 18 187/84 95 03/09/17 07:20 Room Air Intake and Output 03/10/17 03/10/17 03/11/17 15:00 23:00 07:00 Intake Total 300 ml 995 ml 1725 ml Output Total 2500 ml 2100 ml Balance 300 ml -1505 ml -375 ml Exam Constitutional: alert,no acute distress, oriented, well developed Head: atraumatic, normocephalic Eyes: EOMI, PERRL ENMT: mucosa pink and moist Neck: non-tender, supple Respiratory: clear to auscultation, diminished breath sounds bases, No crackles /rales, No wheezing Cardiovascular: regular rate and rhythm, No murmurs Gastrointestinal: bowel sounds, non-tender, soft, No distended, No rebound or guarding Musculoskeletal: diminished ROM secondray to pain in left hip Extremities: No cyanosis, No edema, No pitting pedal edema 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, 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 Results Result Diagram: 03/11/17 0458 03/11/17 0458 Results 24 hrs Laboratory Tests Test 03/10/17 13:04 03/10/17 17:31 03/10/17 21:21 03/11/17 01:44 Bedside Glucose 164 166 181 148 Test 03/11/17 04:58 03/11/17 08:11 White Blood Count 8.3 Red Blood Count 3.87 L Hemoglobin 11.7 L Hematocrit 34.8 L Mean Corpuscular Volume 89.9 Mean Corpuscular Hemoglobin 30.2 Mean Corpuscular Hemoglobin Concent 33.6 Red Cell Distribution Width 13.0 Platelet Count 216 Mean Platelet Volume 10.8 H Neutrophils % 68.0 Lymphocytes % 17.3 Monocytes % 11.6 H Eosinophils % 2.1 Basophils % 0.8 Nucleated Red Blood Cells % 0.0 Neutrophils # 5.6 Lymphocytes # 1.4 Monocytes # 1.0 H Eosinophils # 0.2 Basophils # 0.1 Nucleated Red Blood Cells # 0.0 Sodium Level 137 Potassium Level 3.7 Chloride Level 102 Carbon Dioxide Level 27 Anion Gap 12 Blood Urea Nitrogen 14 Creatinine 1.12 Glucose Level 154 Calcium Level 8.9 Phosphorus Level 2.9 Magnesium Level 1.8 Albumin 3.6 Bedside Glucose 146 Medications Medications Current Medications Sodium Chloride (NS) 1,000 ml @ 100 mls/hr Q10H IV Last administered on 00:01; Admin Dose 100 MLS/HR; Start 03/09/17 at 08:41 Ondansetron HCl (Zofran Inj) 4 mg Q6H PRN IV NAUSEA AND/OR VOMITING; Start 03/15 at 09:00 Acetaminophen (Tylenol Tab) 650 mg Q6H PRN PO PAIN LEVEL 1-3 OR FEVER; Start 03/09/17 at 09:00 Acetaminophen/ Hydrocodone Bitart ([place] (5/325)) 1 tab Q6H PRN PO MODERATE PAIN LEVEL 4-6 Last administered on 03/10/17 02:43; Admin Dose 1 TAB; Start 03/09/17 at 09:00 Morphine Sulfate (morphine) 2 mg Q4H PRN IV SEVERE PAIN LEVEL 7-10; Start 03/15 at 09:00 Hydromorphone HCl (Dilaudid) 0.5 mg Q4H PRN IV SEVERE PAIN LEVEL 7-10 Last administered on 03/11/17 03:17; Admin Dose 0.5 MG; Start 03/09/17 at 09:00 Docusate Sodium (Colace) 100 mg Q12H PRN PO CONSTIPATION; Start 03/09/17 at 09 :00 Magnesium Hydroxide (Milk Of Mag) 30 ml DAILY PRN PO CONSTIPATION; Start 03/09 at 09:00 Pantoprazole (Protonix Tab) 40 mg DAILY@06 PO Last administered on 03/10/17 05:01; Admin Dose 40 MG; Start 03/10/17 at 06:00 Lorazepam (Ativan) 1 mg Q4H PRN IM agitation, anxiety Last administered on 09:40; Admin Dose 1 MG; Start 03/09/17 at 09:00 Diagnostic Test (Pha) (Accu-Chek) 1 ea 02 XX Last administered on 03/11/17 01 :59; Admin Dose 1 EA; Start 03/10/17 at 02:00 Heparin Sodium (Porcine) (Heparin (5000 Units/0.5 ml)) 5,000 unit Q12 SC Last administered on 03/10/17 08:49; Admin Dose 5,000 UNIT; Start 03/09/17 at 21: 00; Status Future Hold Clonidine (Catapres) 0.1 mg Q6H PRN PO ELEVATED SYSTOLIC BP Last administered on 03/10/17 18:49; Admin Dose 0.1 MG; Start 03/09/17 at 20:30 Amlodipine Besylate (Norvasc) 5 mg DAILY PO Last administered on 03/11/17 08: 27; Admin Dose 5 MG; Start 03/10/17 at 09:00 Multivitamins/ Minerals (Theragran-M) 1 tab DAILY PO ; Start 03/11/17 at 09:00 Ascorbic Acid (Vitamin C) 500 mg BID PO Last administered on 03/10/17 21:22; Admin Dose 500 MG; Start 11/12/17 at 21:00 Zinc Sulfate (Zinc Sulfate) 220 mg DAILY PO ; Start 03/11/17 at 09:00 Miscellaneous Information 1 ea NOTE XX ; Start 03/10/17 at 16:30 Glucose (Glutose) 15 gm Q15M PRN PO DECREASED GLUCOSE; Start 03/10/17 at 16:30 Glucose (Glutose) 22.5 gm Q15M PRN PO DECREASED GLUCOSE; Start 03/10/17 at 16: 30 Dextrose (D50w Syringe) 25 ml Q15M PRN IV DECREASED GLUCOSE; Start 03/10/17 at 16:30 Dextrose (D50w Syringe) 50 ml Q15M PRN IV DECREASED GLUCOSE; Start 03/10/17 at 16:30 Glucagon (Glucagen) 1 mg Q15M PRN IM DECREASED GLUCOSE; Start 03/10/17 at 16: 30 Glucose (Glutose) 15 gm Q15M PRN BUCCAL DECREASED GLUCOSE; Start 03/10/17 at 16:30 Hydralazine HCl (Apresoline) 10 mg Q6H PRN IV ELEVATED BLOOD PRESSURE Last administered on 03/10/17 17:49; Admin Dose 10 MG; Start 03/10/17 at 18:00 Lorazepam (Ativan) 1 mg Q4H PRN IV AGITATION/ANXIETY Last administered on 03/10 18:00; Admin Dose 1 MG; Start 03/10/17 at 18:00 KRISH SANTIAGO MD Mar 11, 2017 09:39
[2017-03-11] MEDS ORDERED: FENTAnyl 50 MCG/ML VIAL ONE (11:38)
--- NOTE | 2017-03-11 11:54 | CONS ---
Date/Time of Note Date/Time of Note DATE: 03/11/17 TIME: 11:51 Consultation Date/Type/Reason Admit Date/Time Mar 09, 2017 at 08:20 Initial Consult Date 03/11/17 Type of Consultation: Anesthesiology Reason for Consultation Preop 24 HR Interval Summary Free Text/Dictation Pt taken to OR for hip surgery. Upon connecting monitors patient HR is ranging from 145-166 while he is resting with BP 182/90. Pt is also saying things and not making sense. Dr. Ponce and Hospitalist called and determined this is new and Pt possibly going into DT's or withdrawal? All agree patient should be seen prior to coming back to OR for intervention and optimization. Exam/Review of Systems Vital Signs Vitals Vital Signs Date Time Temp Pulse Resp B/P Pulse Ox O2 Delivery O2 Flow Rate FiO2 03/11/17 08:10 98.9 105 18 187/84 95 03/09/17 07:20 Room Air Intake and Output 03/10/17 03/10/17 03/11/17 14:59 22:59 06:59 Intake Total 300 ml 995 ml 1725 ml Output Total 2500 ml 2100 ml Balance 300 ml -1505 ml -375 ml Results Result Diagram: 03/11/17 0458 03/11/17 0458 Results 24 hrs Laboratory Tests Test 03/10/17 13:04 03/10/17 17:31 03/10/17 21:21 03/11/17 01:44 Bedside Glucose 164 166 181 148 Test 03/11/17 04:58 03/11/17 08:11 White Blood Count 8.3 Red Blood Count 3.87 L Hemoglobin 11.7 L Hematocrit 34.8 L Mean Corpuscular Volume 89.9 Mean Corpuscular Hemoglobin 30.2 Mean Corpuscular Hemoglobin Concent 33.6 Red Cell Distribution Width 13.0 Platelet Count 216 Mean Platelet Volume 10.8 H Neutrophils % 68.0 Lymphocytes % 17.3 Monocytes % 11.6 H Eosinophils % 2.1 Basophils % 0.8 Nucleated Red Blood Cells % 0.0 Neutrophils # 5.6 Lymphocytes # 1.4 Monocytes # 1.0 H Eosinophils # 0.2 Basophils # 0.1 Nucleated Red Blood Cells # 0.0 Sodium Level 137 Potassium Level 3.7 Chloride Level 102 Carbon Dioxide Level 27 Anion Gap 12 Blood Urea Nitrogen 14 Creatinine 1.12 Glucose Level 154 Calcium Level 8.9 Phosphorus Level 2.9 Magnesium Level 1.8 Albumin 3.6 Bedside Glucose 146 Medications Medications Current Medications Sodium Chloride (NS) 1,000 ml @ 100 mls/hr Q10H IV Last administered on 00:01; Admin Dose 100 MLS/HR; Start 03/09/17 at 08:41 Ondansetron HCl (Zofran Inj) 4 mg Q6H PRN IV NAUSEA AND/OR VOMITING; Start 03/15 at 09:00 Acetaminophen (Tylenol Tab) 650 mg Q6H PRN PO PAIN LEVEL 1-3 OR FEVER; Start 03/09/17 at 09:00 Acetaminophen/ Hydrocodone Bitart ([place] (5/325)) 1 tab Q6H PRN PO MODERATE PAIN LEVEL 4-6 Last administered on 03/10/17 02:43; Admin Dose 1 TAB; Start 03/09/17 at 09:00 Morphine Sulfate (morphine) 2 mg Q4H PRN IV SEVERE PAIN LEVEL 7-10; Start 03/15 at 09:00 Hydromorphone HCl (Dilaudid) 0.5 mg Q4H PRN IV SEVERE PAIN LEVEL 7-10 Last administered on 03/11/17 03:17; Admin Dose 0.5 MG; Start 03/09/17 at 09:00 Docusate Sodium (Colace) 100 mg Q12H PRN PO CONSTIPATION; Start 03/09/17 at 09 :00 Magnesium Hydroxide (Milk Of Mag) 30 ml DAILY PRN PO CONSTIPATION; Start 03/09 at 09:00 Pantoprazole (Protonix Tab) 40 mg DAILY@06 PO Last administered on 03/10/17 05:01; Admin Dose 40 MG; Start 03/10/17 at 06:00 Lorazepam (Ativan) 1 mg Q4H PRN IM agitation, anxiety Last administered on 09:40; Admin Dose 1 MG; Start 03/09/17 at 09:00 Diagnostic Test (Pha) (Accu-Chek) 1 ea 02 XX Last administered on 03/11/17 01 :59; Admin Dose 1 EA; Start 03/10/17 at 02:00 Heparin Sodium (Porcine) (Heparin (5000 Units/0.5 ml)) 5,000 unit Q12 SC Last administered on 03/10/17 08:49; Admin Dose 5,000 UNIT; Start 03/09/17 at 21: 00; Status Future Hold Clonidine (Catapres) 0.1 mg Q6H PRN PO ELEVATED SYSTOLIC BP Last administered on 03/10/17 18:49; Admin Dose 0.1 MG; Start 03/09/17 at 20:30 Amlodipine Besylate (Norvasc) 5 mg DAILY PO Last administered on 03/11/17 08: 27; Admin Dose 5 MG; Start 03/10/17 at 09:00 Multivitamins/ Minerals (Theragran-M) 1 tab DAILY PO ; Start 03/11/17 at 09:00 Ascorbic Acid (Vitamin C) 500 mg BID PO Last administered on 03/10/17 21:22; Admin Dose 500 MG; Start 03/10/17 at 21:00 Zinc Sulfate (Zinc Sulfate) 220 mg DAILY PO ; Start 03/11/17 at 09:00 Miscellaneous Information 1 ea NOTE XX ; Start 03/10/17 at 16:30 Glucose (Glutose) 15 gm Q15M PRN PO DECREASED GLUCOSE; Start 03/10/17 at 16:30 Glucose (Glutose) 22.5 gm Q15M PRN PO DECREASED GLUCOSE; Start 03/10/17 at 16: 30 Dextrose (D50w Syringe) 25 ml Q15M PRN IV DECREASED GLUCOSE; Start 03/10/17 at 16:30 Dextrose (D50w Syringe) 50 ml Q15M PRN IV DECREASED GLUCOSE; Start 03/10/17 at 16:30 Glucagon (Glucagen) 1 mg Q15M PRN IM DECREASED GLUCOSE; Start 03/10/17 at 16: 30 Glucose (Glutose) 15 gm Q15M PRN BUCCAL DECREASED GLUCOSE; Start 03/10/17 at 16:30 Hydralazine HCl (Apresoline) 10 mg Q6H PRN IV ELEVATED BLOOD PRESSURE Last administered on 03/11/17 09:31; Admin Dose 10 MG; Start 03/10/17 at 18:00 Lorazepam (Ativan) 1 mg Q4H PRN IV AGITATION/ANXIETY Last administered on 03/10 18:00; Admin Dose 1 MG; Start 03/10/17 at 18:00 Lisinopril (Zestril) 10 mg DAILY PO ; Start 03/12/17 at 09:00 LINDA GUERRERO Mar 11, 2017 11:54
[2017-03-11] MEDS: LISINOPRIL 10 MG TAB PO SCH (13:00)
[2017-03-11] MEDS: CHLORDIAZEPOXIDE 25 MG CAP PO SCH ×2 (13:00→21:51)
[2017-03-11] MEDS ORDERED: LABETALOL HCL 20MG INJ IV PRN (14:30)
[2017-03-11] MEDS: LORAZEPAM 2 MG INJ IV PRN (16:32)
[2017-03-11] MEDS: morphine 2 MG INJ IV PRN (19:51)
[2017-03-12] VITALS (12 sets, daily range): BP systolic 132–168; BP diastolic 72–91; PULSE 91–105; RESP 18–19
[2017-03-12] MEDS: SOD CHLORIDE 0.9% 1,000 ML IV SCH ×3 (02:14→16:05)
[2017-03-12] MEDS: ACCU-CHEK XX SCH (02:41)
[2017-03-12] MEDS: morphine 2 MG INJ IV PRN ×3 (04:55→20:02)
[2017-03-12] MEDS: PANTOPRAZOLE (EC) 40 MG TAB PO SCH (06:01)
[2017-03-12] MEDS: FOLIC ACID 1 MG TAB PO SCH (08:26)
[2017-03-12] MEDS: AMLODIPINE 5 MG TAB PO SCH (08:27)
[2017-03-12] MEDS: MULTIVITAMINS/MINERALS TAB PO SCH (08:28)
[2017-03-12] MEDS: ASCORBIC ACID 500 MG TAB PO SCH ×2 (08:28→21:12)
[2017-03-12] MEDS: ZINC SULFATE 220 MG CAP PO SCH (08:28)
[2017-03-12] MEDS: THIAMINE 100 MG TAB PO SCH (08:28)
[2017-03-12] MEDS: CHLORDIAZEPOXIDE 25 MG CAP PO SCH ×3 (08:34→21:12)
[2017-03-12] MEDS: Insulin NOVOLOG SS MILD Algorithm (SS with meals and bedtime) SC SCH ×4 (08:40→21:15)
[2017-03-12 09:00] LABS: BASOPHIL # 0.1 10^3/ul (0.0-0.1); BASOPHILS % 0.8 % (0.0-2.0); EOSINOPHILS # 0.2 10^3/ul (0.0-0.5); EOSINOPHILS % 2.6 % (0.0-7.0); HEMATOCRIT 32.8 % (42.0-52.0); LYMPHOCYTES # 1.3 10^3/ul (0.8-2.9); LYMPHOCYTES % 16.1 % (15.0-51.0); MEAN CORPUSCULAR HEMOGLOBIN 30.6 pg (29.0-33.0); MEAN CORPUSCULAR HGB CONC 33.5 g/dl (32.0-37.0); MEAN CORPUSCULAR VOLUME 91.4 fl (82.0-101.0); MEAN PLATELET VOLUME 10.4 fl (7.4-10.4); MONOCYTE # 0.9 10^3/ul (0.3-0.9); MONOCYTES % 11.4 % (0.0-11.0); NEUTROPHIL # 5.5 10^3/ul (1.6-7.5); NEUTROPHILS % 68.7 % (39.0-77.0); PLATELET COUNT 227 10^3/UL (140-415); RED BLOOD COUNT 3.59 10^6/ul (4.70-6.10); RED CELL DISTRIBUTION WIDTH 12.9 % (11.5-14.5)
[2017-03-12] MEDS ORDERED: LISINOPRIL 10 MG TAB PO SCH (09:00)
[2017-03-12 09:23] LABS: ALBUMIN 3.4 g/dl (3.3-4.9); CALCIUM 8.8 mg/dl (8.4-10.2); CREATININE 1.14 mg/dl (0.61-1.24); MAGNESIUM 1.7 mg/dl (1.7-2.5); PHOSPHORUS 3.9 mg/dl (2.5-4.9); POTASSIUM 3.6 mmol/L (3.5-5.1)
[2017-03-12] MEDS ORDERED: POTASSIUM CHLORIDE (SR) 20 MEQ TAB PO STA (09:33)
[2017-03-12] MEDS: LISINOPRIL 10 MG TAB PO SCH (09:42)
[2017-03-12] MEDS: METOPROLOL 25 MG TAB PO SCH ×2 (09:50→21:11)
[2017-03-12] MEDS ORDERED: MAGNESIUM OXIDE 400 MG TAB PO ONE (10:00)
--- NOTE | 2017-03-12 15:06 | PN ---
Date/Time of Note Date/Time of Note DATE: 03/12/17 TIME: 15:00 Assessment/Plan VTE Prophylaxis VTE Prophylaxis Intervention: heparin Lines/Catheters IV Catheter Type (from Nrsg): Peripheral IV Urinary Cath still in place: Yes Reason Cath still needed: terminal illness/intractable pain Assessment/Plan Assessment/Plan 1. Acute left femoral neck fracture - Ortho consulted and recommendations appreciated. Patient HR better controlled and less anxious. Plans for surgery tomorrow as patient is medically stable. - Pain control 2. KIT- resolved - continue monitoring 3. Hyponatremia- resolved - Most likely secondary to dehydration - Will continue to monitor 4. Diabetes Mellitus, well controlled - A1c 6.1 - hold home PO medications - ISS and accuchecks 5. Anemia - stable 6. HTN - stable - on norvasc and lisinopril - unsure home medications 7. ETOH abuse - Per daughter, patient does not drink daily but when he does its heavily - Ativan PRN - Librium TID and will taper 8. leukocytosis- resolved - will monitor 9. Disposition - Patients HR has been stable and no signs of withdrawal. Medically stable to undergo surgery tomorrow. - NPO after midnight Subjective 24 Hr Interval Summary Free Text/Dictation Patient resting comfortably and states pain well controlled. Less anxious this am and denies any new complaints. No acute overnight events. Exam/Review of Systems Vital Signs Vitals Vital Signs Date Time Temp Pulse Resp B/P Pulse Ox O2 Delivery O2 Flow Rate FiO2 03/12/17 12:39 98.2 88 18 150/72 96 03/09/17 07:20 Room Air Intake and Output 03/11/17 03/11/17 03/12/17 15:00 23:00 07:00 Intake Total 1180 ml 1500 ml Output Total 1800 ml 3500 ml Balance -620 ml -2000 ml Exam Constitutional: no acute distressing, resting comfortably, cooperative Head: atraumatic, normocephalic Eyes: EOMI, PERRL Neck: non-tender, supple Respiratory: clear to auscultation, diminished breath sounds bases, No crackles /rales, No wheezing Cardiovascular: regular rate and rhythm, No murmurs Gastrointestinal: bowel sounds, non-tender, soft, No distended, No rebound or guarding Musculoskeletal: diminished ROM secondray to pain in left hip Extremities: No cyanosis, No edema, No pitting pedal edema 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, 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 Results Result Diagram: 03/12/17 0808 03/12/17 0808 Results 24 hrs Laboratory Tests Test 03/11/17 17:22 03/11/17 21:50 03/12/17 02:20 03/12/17 08:08 Bedside Glucose 188 224 H 145 White Blood Count 8.0 Red Blood Count 3.59 L Hemoglobin 11.0 L Hematocrit 32.8 L Mean Corpuscular Volume 91.4 Mean Corpuscular Hemoglobin 30.6 Mean Corpuscular Hemoglobin Concent 33.5 Red Cell Distribution Width 12.9 Platelet Count 227 Mean Platelet Volume 10.4 Neutrophils % 68.7 Lymphocytes % 16.1 Monocytes % 11.4 H Eosinophils % 2.6 Basophils % 0.8 Nucleated Red Blood Cells % 0.0 Neutrophils # 5.5 Lymphocytes # 1.3 Monocytes # 0.9 Eosinophils # 0.2 Basophils # 0.1 Nucleated Red Blood Cells # 0.0 Sodium Level 140 Potassium Level 3.6 Chloride Level 103 Carbon Dioxide Level 29 Anion Gap 12 Blood Urea Nitrogen 13 Creatinine 1.14 Glucose Level 144 Calcium Level 8.8 Phosphorus Level 3.9 Magnesium Level 1.7 Albumin 3.4 Test 03/12/17 08:26 03/12/17 12:10 Bedside Glucose 151 162 Medications Medications Current Medications Sodium Chloride (NS) 1,000 ml @ 100 mls/hr Q10H IV Last administered on 12:14; Admin Dose 100 MLS/HR; Start 03/09/17 at 08:41 Ondansetron HCl (Zofran Inj) 4 mg Q6H PRN IV NAUSEA AND/OR VOMITING; Start 03/15 at 09:00 Acetaminophen (Tylenol Tab) 650 mg Q6H PRN PO PAIN LEVEL 1-3 OR FEVER; Start 03/09/17 at 09:00 Acetaminophen/ Hydrocodone Bitart ([place] (5/325)) 1 tab Q6H PRN PO MODERATE PAIN LEVEL 4-6 Last administered on 03/10/17 02:43; Admin Dose 1 TAB; Start 03/09/17 at 09:00 Morphine Sulfate (morphine) 2 mg Q4H PRN IV SEVERE PAIN LEVEL 7-10 Last administered on 03/12/17 12:15; Admin Dose 2 MG; Start 03/09/17 at 09:00 Hydromorphone HCl (Dilaudid) 0.5 mg Q4H PRN IV SEVERE PAIN LEVEL 7-10 Last administered on 03/11/17 12:29; Admin Dose 0.5 MG; Start 03/09/17 at 09:00 Docusate Sodium (Colace) 100 mg Q12H PRN PO CONSTIPATION; Start 03/09/17 at 09 :00 Magnesium Hydroxide (Milk Of Mag) 30 ml DAILY PRN PO CONSTIPATION; Start 03/09 at 09:00 Pantoprazole (Protonix Tab) 40 mg DAILY@06 PO Last administered on 03/12/17 06:01; Admin Dose 40 MG; Start 03/10/17 at 06:00 Lorazepam (Ativan) 1 mg Q4H PRN IM agitation, anxiety Last administered on 09:40; Admin Dose 1 MG; Start 03/09/17 at 09:00 Diagnostic Test (Pha) (Accu-Chek) 1 ea 02 XX Last administered on 03/12/17 02 :41; Admin Dose 1 EA; Start 03/10/17 at 02:00 Heparin Sodium (Porcine) (Heparin (5000 Units/0.5 ml)) 5,000 unit Q12 SC Last administered on 03/10/17 08:49; Admin Dose 5,000 UNIT; Start 03/09/17 at 21: 00; Status Future Hold Clonidine (Catapres) 0.1 mg Q6H PRN PO ELEVATED SYSTOLIC BP Last administered on 03/10/17 18:49; Admin Dose 0.1 MG; Start 03/09/17 at 20:30 Amlodipine Besylate (Norvasc) 5 mg DAILY PO Last administered on 03/12/17 08: 27; Admin Dose 5 MG; Start 03/10/17 at 09:00 Multivitamins/ Minerals (Theragran-M) 1 tab DAILY PO Last administered on 03/12 08:28; Admin Dose 1 TAB; Start 03/11/17 at 09:00 Ascorbic Acid (Vitamin C) 500 mg BID PO Last administered on 03/12/17 08:28; Admin Dose 500 MG; Start 03/10/17 at 21:00 Zinc Sulfate (Zinc Sulfate) 220 mg DAILY PO Last administered on 03/12/17 08: 28; Admin Dose 220 MG; Start 03/11/17 at 09:00 Miscellaneous Information 1 ea NOTE XX ; Start 03/10/17 at 16:30 Glucose (Glutose) 15 gm Q15M PRN PO DECREASED GLUCOSE; Start 03/10/17 at 16:30 Glucose (Glutose) 22.5 gm Q15M PRN PO DECREASED GLUCOSE; Start 03/10/17 at 16: 30 Dextrose (D50w Syringe) 25 ml Q15M PRN IV DECREASED GLUCOSE; Start 03/10/17 at 16:30 Dextrose (D50w Syringe) 50 ml Q15M PRN IV DECREASED GLUCOSE; Start 03/10/17 at 16:30 Glucagon (Glucagen) 1 mg Q15M PRN IM DECREASED GLUCOSE; Start 03/10/17 at 16: 30 Glucose (Glutose) 15 gm Q15M PRN BUCCAL DECREASED GLUCOSE; Start 03/10/17 at 16:30 Hydralazine HCl (Apresoline) 10 mg Q6H PRN IV ELEVATED BLOOD PRESSURE Last administered on 03/11/17 09:31; Admin Dose 10 MG; Start 03/10/17 at 18:00 Lorazepam (Ativan) 1 mg Q4H PRN IV AGITATION/ANXIETY Last administered on 03/11 16:32; Admin Dose 1 MG; Start 03/10/17 at 18:00 Chlordiazepoxide (Librium) 25 mg TID PO Last administered on 03/12/17 12:14; Admin Dose 25 MG; Start 03/11/17 at 13:00 Thiamine HCl (Vitamin B1) 100 mg DAILY PO Last administered on 03/12/17 08:28 ; Admin Dose 100 MG; Start 03/12/17 at 09:00 Folic Acid (Folic Acid) 1 mg DAILY PO Last administered on 03/12/17 08:26; Admin Dose 1 MG; Start 03/12/17 at 09:00 Lisinopril (Zestril) 10 mg DAILY PO Last administered on 03/12/17 09:42; Admin Dose 10 MG; Start 03/11/17 at 12:30 Labetalol HCl (Labetalol) 10 mg Q4H PRN IV SBP >160, HR>100 Last administered on 03/11/17 15:13; Admin Dose 10 MG; Start 03/11/17 at 14:30 Metoprolol Tartrate (Lopressor) 25 mg BID PO Last administered on 03/12/17t 09 :50; Admin Dose 25 MG; Start 03/12/17 at 09:00 KRISH SANTIAGO MD Mar 12, 2017 15:06
--- NOTE | 2017-03-12 16:14 | RADRPT ---
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 Physician: KRISH SANTIAGO Quality: Technically Difficult Study Procedures: Transthoracic echocardiogram with complete 2D, M-Mode, and doppler examination. Indications: Tachycardia. 2D/M Mode Doppler Measurement Value Normal Ranges Measurement Value Normal Ranges LVIDd 2D 3.9 3.5 - 5.6 cm AV Peak Arsalan 1.3 m/sec LVIDs 2D 2.6 2.1 - 4.1 cm AV Peak PG 7.1 mmHg LVPWd 2D 1.3 0.6 - 1.1 cm LVOT Peak Arsalan 0.9 m/sec IVSd 2D 1.3 0.6 - 1.1 cm LVOT Peak PG 3.5 mmHg AoR Diam 2D 3.5 2.0 - 3.7 cm TR Peak Arsalan 1.4 m/sec EDV 2D 66.3 cm3 TR Peak PG 8.2 mmHg ESV 2D 18.2 cm3 RVSP 18.0 mmHg LA Dimen 2D 2.2 2.3 - 4.0 cm Findings Left Ventricle: Normal left ventricular systolic function. Normal left ventricular cavity size. Mild concentric left ventricular hypertrophy. Ejection fraction is visually estimated at 55 %. Tissue Doppler/Mitral Doppler indices are consistent with impaired relaxation (Stage I diastolic dysfunction). Right Ventricle: Normal right ventricular size. Normal right ventricular systolic function. Left Atrium: The left atrium is normal in size. Right Atrium: The right atrium is normal in size. Mitral Valve: Normal appearance of the mitral valve. Mild mitral annular calcification. Trace mitral regurgitation. Aortic Valve: No significant aortic stenosis or insufficiency. Aortic cusps appear mildly calcified. Tricuspid Valve: Normal appearance of the tricuspid valve. Estimated peak PA systolic pressure 18 mmHg. There is trace tricuspid regurgitation. Pulmonic Valve: Normal pulmonic valve appearance. Pericardium: Normal pericardium with no significant pericardial effusion. Aorta: Normal aortic root. IVC: Dilated IVC with respiratory collapse consistent with elevated right atrial pressure. Conclusions 1.Normal left ventricular systolic function. Normal left ventricular cavity size. Mild concentric left ventricular hypertrophy. Ejection fraction is visually estimated at 55 %. Tissue Doppler/Mitral Doppler indices are consistent with impaired relaxation (Stage I diastolic dysfunction). 2.Normal appearance of the mitral valve. Mild mitral annular calcification. Trace mitral regurgitation. 3.No significant aortic stenosis or insufficiency. Aortic cusps appear mildly calcified. 4.Normal appearance of the tricuspid valve. Estimated peak PA systolic pressure 18 mmHg. There is trace tricuspid regurgitation. 5.Dilated IVC with respiratory collapse consistent with elevated right atrial pressure. Electronically Signed By: Bartolo Lim 12-Mar-2017 16:14:36 -0800 Patient Name: STEPHY MARES Study Date: 12-Mar-2017 [id number]
--- NOTE | 2017-03-12 21:47 | RADRPT ---
Vent Rate: 130 bpm RR Interval: 0 msec MO Interval: 138 msec QRS Duration: 78 msec QT Interval: 322 msec QTC Interval: 473 msec P-R-T [place]: 68 - 45 - 62 degrees Sinus tachycardia with premature atrial complexes Nonspecific ST abnormality Abnormal ECG Electronically Signed By: Gregorio Rizzo [id number]
[2017-03-12] MEDS: LORAZEPAM 2 MG INJ IV PRN (22:12)
[2017-03-13] VITALS (44 sets, daily range): BP systolic 58–164; BP diastolic 43–88; PULSE 90–153; RESP 16–22
[2017-03-13] MEDS ORDERED: HALOPERIDOL 5 MG INJ IM ONE (01:00)
[2017-03-13] MEDS: ACCU-CHEK XX SCH (02:00)
[2017-03-13] MEDS: SOD CHLORIDE 0.9% 1,000 ML IV SCH ×3 (02:41→20:49)
[2017-03-13] MEDS ORDERED: POTASSIUM CHLORIDE (SR) 20 MEQ TAB PO ONE (03:41)
[2017-03-13] MEDS ORDERED: METOPROLOL 5 MG INJ IV ONE (04:00)
[2017-03-13] MEDS ORDERED: MAGNESIUM SULFATE 1 GM/D5W 100 ML IVPB ONE (04:00)
[2017-03-13] MEDS: PANTOPRAZOLE (EC) 40 MG TAB PO SCH (06:00)
[2017-03-13] MEDS ORDERED: ONDANSETRON 4 MG INJ ONE (07:00)
[2017-03-13] MEDS: Insulin NOVOLOG SS MILD Algorithm (SS with meals and bedtime) SC SCH ×3 (08:05→20:49)
[2017-03-13 08:19] LABS: BASOPHIL # 0.1 10^3/ul (0.0-0.1); BASOPHILS % 0.7 % (0.0-2.0); EOSINOPHILS # 0.2 10^3/ul (0.0-0.5); EOSINOPHILS % 1.6 % (0.0-7.0); LYMPHOCYTES % 10.3 % (15.0-51.0); MEAN CORPUSCULAR HEMOGLOBIN 30.5 pg (29.0-33.0); MEAN CORPUSCULAR HGB CONC 34.3 g/dl (32.0-37.0); MEAN CORPUSCULAR VOLUME 89.1 fl (82.0-101.0); MEAN PLATELET VOLUME 10.7 fl (7.4-10.4); MONOCYTE # 0.8 10^3/ul (0.3-0.9); MONOCYTES % 8.4 % (0.0-11.0); NEUTROPHIL # 7.8 10^3/ul (1.6-7.5); NEUTROPHILS % 78.6 % (39.0-77.0); PLATELET COUNT 264 10^3/UL (140-415); RED BLOOD COUNT 3.93 10^6/ul (4.70-6.10); RED CELL DISTRIBUTION WIDTH 12.6 % (11.5-14.5)
[2017-03-13] MEDS: morphine 2 MG INJ IV PRN (08:36)
[2017-03-13 08:49] LABS: ALBUMIN 3.9 g/dl (3.3-4.9); CREATININE 1.13 mg/dl (0.61-1.24); MAGNESIUM 1.9 mg/dl (1.7-2.5); PHOSPHORUS 3.7 mg/dl (2.5-4.9); POTASSIUM 3.7 mmol/L (3.5-5.1)
[2017-03-13] MEDS: ZINC SULFATE 220 MG CAP PO SCH (09:00)
[2017-03-13] MEDS: MULTIVITAMINS/MINERALS TAB PO SCH (09:00)
[2017-03-13] MEDS: FOLIC ACID 1 MG TAB PO SCH (09:00)
[2017-03-13] MEDS: ASCORBIC ACID 500 MG TAB PO SCH ×2 (09:00→20:30)
[2017-03-13] MEDS: LISINOPRIL 10 MG TAB PO SCH (09:00)
[2017-03-13] MEDS: AMLODIPINE 5 MG TAB PO SCH (09:00)
[2017-03-13] MEDS: METOPROLOL 25 MG TAB PO SCH ×2 (09:00→20:30)
[2017-03-13] MEDS: CHLORDIAZEPOXIDE 25 MG CAP PO SCH ×3 (09:00→20:30)
[2017-03-13] MEDS: THIAMINE 100 MG TAB PO SCH (09:00)
--- NOTE | 2017-03-13 09:27 | PN ---
Date/Time of Note Date/Time of Note DATE: 03/13/17 TIME: 09:21 Assessment/Plan VTE Prophylaxis VTE Prophylaxis Intervention: heparin (on hold for surgery) Lines/Catheters IV Catheter Type (from Nrsg): Peripheral IV Urinary Cath still in place: Yes Reason Cath still needed: terminal illness/intractable pain Assessment/Plan Assessment/Plan 1. Acute left femoral neck fracture - Ortho consulted and recommendations appreciated. Plans for OR today - Pain control 2. KIT- resolved - continue monitoring 3. Hyponatremia- resolved - Most likely secondary to dehydration - Will continue to monitor 4. Diabetes Mellitus, well controlled - A1c 6.1 - hold home PO medications - ISS and accuchecks 5. Anemia - stable 6. HTN - stable - on norvasc and lisinopril 7. ETOH abuse - Per daughter, patient does not drink daily but when he does its heavily - Ativan PRN - Librium TID and will taper 8. leukocytosis- resolved - will monitor 9. Tachycardia - Patient experiencing sinus tachycardia that is associated with pain. When treated with pain medications, HR decrease below 100s - ECHO shows stage 1 diastolic dysfunction with EF 55% 10. Disposition - Patient treated for pain and HR improved. Patient is medically stable for surgery today. - Currently NPO and Heparin has been on hold Subjective 24 Hr Interval Summary Free Text/Dictation Patient c/o left hip pain this am but denies any chest pain, shortness of breath , nausea, vomiting, or abdominal issues. Patient has been restless due to pain but no acute overnight events. Exam/Review of Systems Vital Signs Vitals Vital Signs Date Time Temp Pulse Resp B/P Pulse Ox O2 Delivery O2 Flow Rate FiO2 03/13/17 08:18 114 03/13/17 07:31 99.5 22 133/78 96 03/09/17 07:20 Room Air Intake and Output 03/12/17 03/12/17 03/13/17 15:00 23:00 07:00 Intake Total 720 ml 2160 ml 1400 ml Output Total 1400 ml 4600 ml 1600 ml Balance -680 ml -2440 ml -200 ml Exam Constitutional: alert, mild distress due to pain, oriented, well developed Head: atraumatic, normocephalic Eyes: EOMI, PERRL Neck: non-tender, supple Respiratory: clear to auscultation, diminished breath sounds bases, No crackles /rales, No wheezing Cardiovascular: sinus tach and rhythm, No murmurs Gastrointestinal: bowel sounds, non-tender, soft, No distended, No rebound or guarding Musculoskeletal: diminished ROM secondray to pain in left hip Extremities: No cyanosis, No edema, No pitting pedal edema 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, 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 Results Result Diagram: 03/13/17 0707 03/13/17 0707 Results 24 hrs Laboratory Tests Test 03/12/17 12:10 03/12/17 17:25 03/12/17 20:36 03/13/17 01:24 Bedside Glucose 162 172 203 155 Test 03/13/17 07:07 03/13/17 07:53 White Blood Count 10.0 # Red Blood Count 3.93 L Hemoglobin 12.0 L Hematocrit 35.0 L Mean Corpuscular Volume 89.1 Mean Corpuscular Hemoglobin 30.5 Mean Corpuscular Hemoglobin Concent 34.3 Red Cell Distribution Width 12.6 Platelet Count 264 Mean Platelet Volume 10.7 H Neutrophils % 78.6 H Lymphocytes % 10.3 L Monocytes % 8.4 Eosinophils % 1.6 Basophils % 0.7 Nucleated Red Blood Cells % 0.0 Neutrophils # 7.8 H Lymphocytes # 1.0 Monocytes # 0.8 Eosinophils # 0.2 Basophils # 0.1 Nucleated Red Blood Cells # 0.0 Sodium Level 137 Potassium Level 3.7 Chloride Level 100 Carbon Dioxide Level 25 Anion Gap 16 Blood Urea Nitrogen 16 Creatinine 1.13 Glucose Level 233 H Calcium Level 9.0 Phosphorus Level 3.7 Magnesium Level 1.9 Albumin 3.9 Bedside Glucose 209 Medications Medications Current Medications Sodium Chloride (NS) 1,000 ml @ 100 mls/hr Q10H IV Last administered on 02:41; Admin Dose 100 MLS/HR; Start 03/09/17 at 08:41 Ondansetron HCl (Zofran Inj) 4 mg Q6H PRN IV NAUSEA AND/OR VOMITING; Start 03/15 at 09:00 Acetaminophen (Tylenol Tab) 650 mg Q6H PRN PO PAIN LEVEL 1-3 OR FEVER; Start 03/09/17 at 09:00 Acetaminophen/ Hydrocodone Bitart ([place] (5/325)) 1 tab Q6H PRN PO MODERATE PAIN LEVEL 4-6 Last administered on 03/10/17 02:43; Admin Dose 1 TAB; Start 03/09/17 at 09:00 Morphine Sulfate (morphine) 2 mg Q4H PRN IV SEVERE PAIN LEVEL 7-10 Last administered on 03/13/17 08:36; Admin Dose 2 MG; Start 03/09/17 at 09:00 Hydromorphone HCl (Dilaudid) 0.5 mg Q4H PRN IV SEVERE PAIN LEVEL 7-10 Last administered on 03/11/17 12:29; Admin Dose 0.5 MG; Start 03/09/17 at 09:00 Docusate Sodium (Colace) 100 mg Q12H PRN PO CONSTIPATION; Start 03/09/17 at 09 :00 Magnesium Hydroxide (Milk Of Mag) 30 ml DAILY PRN PO CONSTIPATION; Start 03/09 at 09:00 Pantoprazole (Protonix Tab) 40 mg DAILY@06 PO Last administered on 03/12/17 06:01; Admin Dose 40 MG; Start 03/10/17 at 06:00 Lorazepam (Ativan) 1 mg Q4H PRN IM agitation, anxiety Last administered on 09:40; Admin Dose 1 MG; Start 03/09/17 at 09:00 Diagnostic Test (Pha) (Accu-Chek) 1 ea 02 XX Last administered on 03/12/17 02 :41; Admin Dose 1 EA; Start 03/10/17 at 02:00 Heparin Sodium (Porcine) (Heparin (5000 Units/0.5 ml)) 5,000 unit Q12 SC Last administered on 03/10/17 08:49; Admin Dose 5,000 UNIT; Start 03/09/17 at 21: 00; Status Future Hold Clonidine (Catapres) 0.1 mg Q6H PRN PO ELEVATED SYSTOLIC BP Last administered on 03/10/17 18:49; Admin Dose 0.1 MG; Start 03/09/17 at 20:30 Amlodipine Besylate (Norvasc) 5 mg DAILY PO Last administered on 03/12/17 08: 27; Admin Dose 5 MG; Start 03/10/17 at 09:00 Multivitamins/ Minerals (Theragran-M) 1 tab DAILY PO Last administered on 03/12 08:28; Admin Dose 1 TAB; Start 03/11/17 at 09:00 Ascorbic Acid (Vitamin C) 500 mg BID PO Last administered on 03/12/17 21:12; Admin Dose 500 MG; Start 03/10/17 at 21:00 Zinc Sulfate (Zinc Sulfate) 220 mg DAILY PO Last administered on 03/12/17 08: 28; Admin Dose 220 MG; Start 03/11/17 at 09:00 Miscellaneous Information 1 ea NOTE XX ; Start 03/10/17 at 16:30 Glucose (Glutose) 15 gm Q15M PRN PO DECREASED GLUCOSE; Start 03/10/17 at 16:30 Glucose (Glutose) 22.5 gm Q15M PRN PO DECREASED GLUCOSE; Start 03/10/17 at 16: 30 Dextrose (D50w Syringe) 25 ml Q15M PRN IV DECREASED GLUCOSE; Start 03/10/17 at 16:30 Dextrose (D50w Syringe) 50 ml Q15M PRN IV DECREASED GLUCOSE; Start 03/10/17 at 16:30 Glucagon (Glucagen) 1 mg Q15M PRN IM DECREASED GLUCOSE; Start 03/10/17 at 16: 30 Glucose (Glutose) 15 gm Q15M PRN BUCCAL DECREASED GLUCOSE; Start 03/10/17 at 16:30 Hydralazine HCl (Apresoline) 10 mg Q6H PRN IV ELEVATED BLOOD PRESSURE Last administered on 03/11/17 09:31; Admin Dose 10 MG; Start 03/10/17 at 18:00 Lorazepam (Ativan) 1 mg Q4H PRN IV AGITATION/ANXIETY Last administered on 03/12 22:12; Admin Dose 1 MG; Start 03/10/17 at 18:00 Chlordiazepoxide (Librium) 25 mg TID PO Last administered on 03/12/17 21:12; Admin Dose 25 MG; Start 03/11/17 at 13:00 Thiamine HCl (Vitamin B1) 100 mg DAILY PO Last administered on 03/12/17 08:28 ; Admin Dose 100 MG; Start 03/12/17 at 09:00 Folic Acid (Folic Acid) 1 mg DAILY PO Last administered on 03/12/17 08:26; Admin Dose 1 MG; Start 03/12/17 at 09:00 Lisinopril (Zestril) 10 mg DAILY PO Last administered on 03/12/17 09:42; Admin Dose 10 MG; Start 03/11/17 at 12:30 Labetalol HCl (Labetalol) 10 mg Q4H PRN IV SBP >160, HR>100 Last administered on 03/11/17 15:13; Admin Dose 10 MG; Start 03/11/17 at 14:30 Metoprolol Tartrate (Lopressor) 25 mg BID PO Last administered on 03/12/17 21 :11; Admin Dose 25 MG; Start 03/12/17 at 09:00 KRISH SANTIAGO MD Mar 13, 2017 09:27
[2017-03-13] MEDS ORDERED: HYDROmorphONE 0.5 MG/0.5 ML SYG IV SCH (10:00)
[2017-03-13] MEDS ORDERED: POLYMYXIN/BACITRACIN 1L IRRIG ONE (11:02)
[2017-03-13] MEDS ORDERED: MIDAZOLAM 1 MG/ML 2 ML INJ ONE (11:23)
[2017-03-13] MEDS ORDERED: morphine SULFATE/PF (10 MG/10 ML) INJ ONE (11:23)
[2017-03-13] MEDS ORDERED: PHENYLephrine (100 MCG/ML) 5ML SYG ONE ×2 (11:41→11:58)
[2017-03-13] MEDS ORDERED: TRANEXAMIC ACID 1,000 MG in DEXTROSE 5% 100 ML IV SCH (12:00)
[2017-03-13] MEDS ORDERED: TRANEXAMIC ACID 1,000 MG in SOD CHLORIDE 0.9% 100 ML IV SCH (12:00)
[2017-03-13] MEDS ORDERED: ROPIVACAINE 0.2% 60 ML, morphine SULFATE (PF) 4 MG, CLONIDINE 100 MCG, EPINEPHrine 0.3 MG INJ SCH ×7 (12:30)
[2017-03-13] MEDS ORDERED: TRANEXAMIC ACID 1,000 MG in DEXTROSE 5% 100 ML IV ONE (13:00)
--- NOTE | 2017-03-13 13:25 | RADRPT ---
PROCEDURE: Intraoperative hip x-ray CLINICAL INDICATION: Pain. Osteoarthritis. TECHNIQUE: Intraoperative views of the hip Fluoro time: 0.2 minutes Number of images/sequences: 2 COMPARISON: None FINDINGS: 2 Intraoperative views of the left hip demonstrate ongoing total hip replacement. IMPRESSION: Left total hip replacement RPTAT: HH .Nicolas Terry MD, Date Time Electronically viewed and signed by .Nicolas Terry MD, on 03/13/2017 13:24 .W/
--- NOTE | 2017-03-13 13:27 | SIPON ---
Date/Time of Note Date/Time of Note DATE: 03/13/17 TIME: 13:23 Operative Report Preoperative Diagnosis Left Femoral Neck Fracture Postoperative Diagnosis same Operation/Procedure Performed Left Hip Hemiarthroplasty Surgeon MD Barbara workforce development assistant OSWALD Jackson Anesthesia: general Estimated blood loss: 250 - 300 ml's Transfusion Required none Specimen resected bone Grafts/Implants Ansari Nephew Size 3 Std Offset Anthology Stem, 49+0 head Complications none SHOSHANA WEAVER MD Mar 13, 2017 13:27
[2017-03-13] MEDS ORDERED: LIDOCAINE 2% (SDV) 5 ML INJ ONE (13:45)
[2017-03-13] MEDS ORDERED: CEFAZOLIN 1 GM INJ ONE (13:45)
[2017-03-13] MEDS ORDERED: ETOMIDATE 20 MG INJ ONE (13:45)
--- NOTE | 2017-03-13 13:56 | PDOCDIS ---
Discharge Instructions DIAGNOSIS Discharge Diagnosis Status post left hemiarthroplasty of the hip CONDITION Patient Condition: Good HOME CARE INSTRUCTIONS: Diet Instructions: RegularSpecial Diet: carb controlled ACTIVITY: Activity Restrictions: Slowly Increase Activity Rest between Activity Avoid heavy lifting No Sexual Activity Do not Drive Do not operate Machinery Do not operate Power Tool Avoid Heavy Housework Keep Limb Elevated (May use ice modalities while resting.) Weight Bearing (Weight-bear as tolerated with use of front wheeled walker.) Bathing Restrictions: Shower (Keep the area clean and dry until postoperative appointment with Dr. Burrell.) FOLLOW UP/APPOINTMENTS Follow-up Plan Follow-up in outpatient office 10-14 days status post surgery. MAO BANGURA PA-C Mar 13, 2017 13:56
[2017-03-13] MEDS ORDERED: oxyCODONE 5 MG TAB PO PRN ×3 (14:00)
[2017-03-13] MEDS: ONDANSETRON 4 MG INJ IV SCH ×2 (14:00→20:31)
[2017-03-13] MEDS ORDERED: MEPERIDINE 10 MG/ML 30 ML PCA IV PRN (14:00)
[2017-03-13] MEDS ORDERED: KETOROLAC 15 MG INJ IV PRN (14:00)
[2017-03-13] MEDS ORDERED: SENNA/DOCUSATE NA (8.6MG/50MG) TAB PO PRN (14:00)
[2017-03-13] MEDS ORDERED: BETHANECHOL 25 MG TAB PO PRN (14:00)
[2017-03-13] MEDS ORDERED: NA PHOSPHATE/BIPHOS 133 ML ENEMA PR PRN (14:00)
[2017-03-13] MEDS ORDERED: DIPHENHYDRAMINE 50 MG INJ IM PRN (14:00)
[2017-03-13] MEDS ORDERED: ZOLPIDEM 5 MG TAB PO PRN (14:00)
[2017-03-13] MEDS ORDERED: NACL 0.9% 3 ML SYG IV SCH (14:00)
[2017-03-13] MEDS ORDERED: BISACODYL 10 MG SUPP PR PRN (14:00)
[2017-03-13] MEDS ORDERED: ASPIRIN (EC) 325 MG TAB PO ONE ×2 (14:00→14:17)
[2017-03-13] MEDS ORDERED: DEXTROSE 5%-LR 1,000 ML IV SCH (14:00)
[2017-03-13] MEDS ORDERED: HYDROmorphONE 0.2 MG/ML PCA IV PRN (14:00)
[2017-03-13] MEDS ORDERED: DOCUSATE SODIUM 100 MG CAP PO ONE (14:00)
[2017-03-13] MEDS ORDERED: NALOXONE (0.4 MG/ML) INJ IV PRN ×2 (14:00→14:30)
[2017-03-13] MEDS ORDERED: MAGNESIUM HYDROXIDE 30ML CUP PO PRN (14:00)
[2017-03-13] MEDS ORDERED: CEFAZOLIN 1 GM/50 ML (PMX) 50 ML IVPB ONE (14:17)
[2017-03-13] MEDS: CEFAZOLIN 1 GM/50 ML (PMX) 50 ML IVPB SCH ×2 (14:22→20:31)
[2017-03-13] MEDS ORDERED: HYDROmorphONE (0.2 MG/ML) 10ML SYG IV PRN ×2 (14:30)
[2017-03-13] MEDS ORDERED: FENTAnyl 50 MCG/ML VIAL IV PRN (14:30)
[2017-03-13] MEDS ORDERED: MEPERIDINE 25 MG INJ IV PRN (14:30)
[2017-03-13] MEDS ORDERED: ONDANSETRON 4 MG INJ IV PRN (14:30)
[2017-03-13] MEDS ORDERED: DIPHENHYDRAMINE 50 MG INJ IV PRN (14:30)
--- NOTE | 2017-03-13 14:54 | RADRPT ---
PROCEDURE: XR Left Hip. CLINICAL INDICATION: Left hip pain. Postop. TECHNIQUE: Two views. Frontal and lateral. COMPARISON: 03/09/2017. FINDINGS: There is a left hip arthroplasty. This appears satisfactory with no fracture, dislocation or loosen ing. There is no lytic lesion. Vascular calcifications are present consistent with atherosclerosis. There is a Baxter catheter in th e bladder. IMPRESSION: 1. Satisfactory postoperative appearance of the left hip. 2. Atherosclerosis. RPTAT: QQ .James Rothman MD, MD Date Time Electronically viewed and signed by .James Rothman MD, MD on 03/13/2017 14:54 .R/
--- NOTE | 2017-03-13 14:56 | RADRPT ---
PROCEDURE: XR Pelvis. CLINICAL INDICATION: Postop hip replacement. TECHNIQUE: Pelvic x-ray, single AP view. COMPARISON: 03/09/2017. FINDINGS: Bone density appears decreased. Left hip arthroplasty hardware is now in place. Degenerative changes of the right hip are observed. The hip joints are intact. Mild postoperative air is present. Vascul ar calcifications are present. Degenerative changes of the lower lumbar spine are observed. IMPRESSION: Surgical changes compatible with left hip arthroplasty. Right hip osteoarthritis. RPTAT: AAQQ .Hillary Green MD, MD Date Time Electronically viewed and signed by .Hillary Green MD, MD on 03/13/2017 14:55 .T/
--- NOTE | 2017-03-13 15:02 | OPR ---
DATE OF OPERATION: 03/13/2017 SURGEON: Shoshana Govea MD. LADLE REPAIRMAN: OSWALD Naidu PREOPERATIVE DIAGNOSIS: Left displaced femoral neck fracture. POSTOPERATIVE DIAGNOSIS: Left displaced femoral neck fracture. PROCEDURES PERFORMED: 1. Left hip hemiarthroplasty, CPT code 05236. 2. Interpretation of AP pelvis x-ray. ANESTHESIOLOGIST: Dr. Duran. ANESTHESIA: General. ESTIMATED BLOOD LOSS: 100 mL. COMPLICATIONS: None. SPECIMENS: Left femoral head. IMPLANT USED: A [employer]hew size 3 standard offset anthology stem, 49 + 0 head. DISPOSITION: Stable to PACU with palpable pulses. INDICATION FOR PROCEDURE: This is a 71-year-old male who had a mechanical fall resulting in a left displaced femoral neck fracture. Risks, benefits, alternatives of surgical intervention were discus sed with the patient and informed consent was obtained. The risks of surgery include but are not limited to infection, deep venous thrombosis, pulmonary emb olism, damage to neurovascular structures including the sciatic nerve, foot drop, leg length discrep chris, instability, dislocation, need for blood transfusion, heart attack, stroke, risks associated w ith anesthesia and even . DETAILS OF THE PROCEDURE: The patient was met in the preoperative suite and the correct operative s ite was marked. He was then brought into operating room. After induction of general anesthesia, he was placed in the right lateral decubitus position with the left hip up. An axillary roll was plac ed and peroneal nerve and ankle were padded. The patient was then held in place with hip medical equipment sales. Th e left lower extremity was prepped and draped in the usual sterile fashion. Before starting, a time out was taken to confirm the correct operative site and confirm that preoperative antibiotics consis ting of 1 gram of IV Ancef were administered. At this point, an approximate 4-inch posterolateral i ncision was made. The skin and subcutaneous tissue were divided down to the level of the fascia. T he fascia was then identified and divided longitudinally. The trochanteric bursa was then identifie d and divided longitudinally and reflected posteriorly. The short external rotators were exposed an d released with electrocautery. They were tagged for later repair. The fractured neck was identifi ed. Using the corkscrew, the femoral head was removed and sized to 49 mm. All bony remnants were t hen removed from the acetabulum. Attention was then turned to the proximal femur. A femoral elevat or was used to elevate the proximal aspect of the femur. Using a guide a barak was made for the femo ral neck cut 1 fingerbreadth above the lesser trochanter. Using the oscillating saw, the femoral ne ck cut was completed. Next the box osteotome followed by canal finder was used. Sequential broachi ng was performed with a 0 broach going up to a size 3 broach. The trial 3 broach 49 standard offset head and neck were placed and the hip was then reduced. Trial reduction demonstrated that the leg lengths were equal with stability in full extension and external rotation as well as position of sle ep. The hip was also noted to be stable at 90 degrees of flexion with over 60 degrees of internal r otation. Cross table AP x-rays confirmed the position of the components. The trial components were removed. Retractors were placed again and the final size components were then placed. The hip was thoroughly irrigated. After reduction, the stability was unchanged. The posterior structures were repaired to the back edge of the greater trochanter. The trochanteric bursa and the fascia were cl osed using a #1 Vicryl interrupted [id number] fashion, subcutaneous tissue were closed using 2- 0 Vicryl and the skin approximated with 3-0 Monocryl. Sterile dressings were placed and an abductor pillow was used. The patient tolerated the procedure well and was transferred to the postoperative care unit in stable condition. Prior to transfer, final postoperative x-rays demonstrated that the components to be in appropriate position with equal leg lengths pulses were checked prior to transf er and noted to be full. POSTOPERATIVE CARE: Patient will be weightbearing as tolerated. He will have mechanical and chemic al DVT prophylaxis. He will have aspirin 325 mg p.o. b.i.d. for 6 weeks. He will work with Payment plugin. He will receive 2 additional doses of IV Ancef. Upon discharge, he will follow up at [facility] within 10-14 days. Dictated By: SHOSHANA CROSS/FRANCESCA Conf#: [id number] DID#: [id number]
[2017-03-14] VITALS (10 sets, daily range): BP systolic 124–154; BP diastolic 62–87; PULSE 95–117; RESP 17–22
[2017-03-14] MEDS: HYDROmorphONE 0.5 MG/0.5 ML SYG IV PRN (01:51)
[2017-03-14] MEDS: ACCU-CHEK XX SCH (02:00)
[2017-03-14] MEDS: ONDANSETRON 4 MG INJ IV SCH ×2 (03:00→08:30)
[2017-03-14] MEDS: LORAZEPAM 2 MG INJ IV PRN (04:41)
[2017-03-14] MEDS: DEXAMETHASONE 4 MG/ML 1 ML INJ IV SCH (06:38)
[2017-03-14] MEDS: CEFAZOLIN 1 GM/50 ML (PMX) 50 ML IVPB SCH (06:39)
[2017-03-14] MEDS: PANTOPRAZOLE (EC) 40 MG TAB PO SCH (06:39)
[2017-03-14 07:21] LABS: BASOPHIL # 0.1 10^3/ul (0.0-0.1); BASOPHILS % 0.8 % (0.0-2.0); EOSINOPHILS # 0.3 10^3/ul (0.0-0.5); EOSINOPHILS % 2.4 % (0.0-7.0); HEMATOCRIT 32.2 % (42.0-52.0); HEMOGLOBIN 10.9 g/dl (14.0-18.0); LYMPHOCYTES # 1.4 10^3/ul (0.8-2.9); LYMPHOCYTES % 13.3 % (15.0-51.0); MEAN CORPUSCULAR HEMOGLOBIN 31.1 pg (29.0-33.0); MEAN CORPUSCULAR HGB CONC 33.9 g/dl (32.0-37.0); MEAN CORPUSCULAR VOLUME 91.7 fl (82.0-101.0); MEAN PLATELET VOLUME 10.5 fl (7.4-10.4); MONOCYTE # 1.1 10^3/ul (0.3-0.9); MONOCYTES % 10.5 % (0.0-11.0); NEUTROPHIL # 7.5 10^3/ul (1.6-7.5); NEUTROPHILS % 72.5 % (39.0-77.0); PLATELET COUNT 265 10^3/UL (140-415); RED BLOOD COUNT 3.51 10^6/ul (4.70-6.10); RED CELL DISTRIBUTION WIDTH 12.9 % (11.5-14.5); WHITE BLOOD COUNT 10.3 10^3/ul (4.8-10.8)
--- NOTE | 2017-03-14 07:53 | PN ---
Date/Time of Note Date/Time of Note DATE: 03/14/17 TIME: 07:52 Assessment/Plan VTE Prophylaxis VTE Prophylaxis Intervention: ambulation, SCD's, other (Aspirin 325 mg) Lines/Catheters IV Catheter Type (from Nrsg): Peripheral IV Baxter in Place (from Nrsg): Yes Assessment/Plan Assessment/Plan -Pain Meds as needed -Dressing is clean and intact. -OOB with PT -ASA/SCDs for DVT Prophylaxis -Continue monitoring with Internal Medicine -Patient Stable Subjective 24 Hr Interval Summary 71-year-old male postop day 1 status post left hip hemiarthroplasty after experiencing femoral neck fracture. Long history of alcoholism. Patient is responsive in bed today but showing significant fatigue. No states that he has recently taken Ativan. He does respond to verbal stimulus. Nurse denies any acute overnight events. Patient is stable and resting in bed. Constitutional: no complaints Pain Control: well controlled Exam/Review of Systems Vital Signs Vitals Vital Signs Date Time Temp Pulse Resp B/P Pulse Ox O2 Delivery O2 Flow Rate FiO2 03/14/17 04:22 113 03/14/17 00:00 98.4 17 136/64 93 03/13/17 17:00 Nasal Cannula 2.0 Intake and Output 03/13/17 03/13/17 03/14/17 15:00 23:00 07:00 Intake Total 1400 ml 300 ml 700 ml Output Total 200 ml 800 ml Balance 1200 ml 300 ml -100 ml Exam Free Text/Dictation -No complications with dressing intact. -Thigh soft -5/5 Quadriceps, Tibialis Anterior, EHL Gastrocnemius/Soleus and Peroneals -Normal Sensation -Palpable DP/PT, Capillary Refill <2 secs -No Distal Edema -Negative Nolan Sign/No calf pain -Toes Freely Movable Results Result Diagram: 03/14/17 0640 03/13/17 0707 MAO BANGURA PA-C Mar 14, 2017 07:53
[2017-03-14 08:00] LABS: ALBUMIN 3.3 g/dl (3.3-4.9); CALCIUM 8.4 mg/dl (8.4-10.2); CREATININE 1.31 mg/dl (0.61-1.24); MAGNESIUM 1.5 mg/dl (1.7-2.5); PHOSPHORUS 3.7 mg/dl (2.5-4.9); POTASSIUM 3.6 mmol/L (3.5-5.1)
[2017-03-14] MEDS: ASCORBIC ACID 500 MG TAB PO SCH ×2 (08:31→21:11)
[2017-03-14] MEDS: CHLORDIAZEPOXIDE 25 MG CAP PO SCH ×3 (08:31→21:11)
[2017-03-14] MEDS: THIAMINE 100 MG TAB PO SCH (08:31)
[2017-03-14] MEDS: ASPIRIN (EC) 325 MG TAB PO SCH ×2 (08:32→21:11)
[2017-03-14] MEDS: MULTIVITAMINS/MINERALS TAB PO SCH (08:32)
[2017-03-14] MEDS: LISINOPRIL 10 MG TAB PO SCH (08:32)
[2017-03-14] MEDS: FOLIC ACID 1 MG TAB PO SCH (08:32)
[2017-03-14] MEDS: CELECOXIB 200 MG CAP PO SCH ×2 (08:33→21:10)
[2017-03-14] MEDS: METOPROLOL 25 MG TAB PO SCH ×2 (08:33→21:12)
[2017-03-14] MEDS: AMLODIPINE 5 MG TAB PO SCH (08:33)
[2017-03-14] MEDS: DOCUSATE SODIUM 100 MG CAP PO SCH ×2 (08:34→21:10)
[2017-03-14] MEDS: FERROUS FUMARATE (SR) TAB PO SCH ×2 (08:34→21:10)
[2017-03-14] MEDS: Insulin NOVOLOG SS MILD Algorithm (SS with meals and bedtime) SC SCH ×4 (08:35→22:47)
[2017-03-14] MEDS: ZINC SULFATE 220 MG CAP PO SCH (08:36)
--- NOTE | 2017-03-14 10:53 | PN ---
Date/Time of Note Date/Time of Note DATE: 03/14/17 TIME: 10:53 Assessment/Plan VTE Prophylaxis VTE Prophylaxis Intervention: SCD's Lines/Catheters IV Catheter Type (from Nrsg): Peripheral IV Urinary Cath still in place: No Assessment/Plan Assessment/Plan 1. Acute left femoral neck fracture s/p left hip hemiarthroplasty POD #1 - Ortho consulted and recommendations appreciated. Continue aspirin for DVT ppx and OOB with PT. Consult placed to for Rehab evaluation vs HH with PT. - Pain control 2. KIT - IVF and encourage PO hydration - continue monitoring 3. Hyponatremia- resolved - Most likely secondary to dehydration - Will continue to monitor 4. Diabetes Mellitus, well controlled - A1c 6.1 - hold home PO medications - ISS and accuchecks 5. Anemia - stable 6. HTN - stable - on norvasc and lisinopril 7. ETOH abuse - Per daughter, patient does not drink daily but when he does its heavily - Ativan PRN - Librium tapered to BID 8. leukocytosis- resolved - will monitor 9. Tachycardia- resolved - Patient HR better controlled since pain control affective - ECHO shows stage 1 diastolic dysfunction with EF 55% 10. Disposition - Rehab evaluation - Continue current treatment - Taper Librium Subjective 24 Hr Interval Summary Free Text/Dictation Patient c/o pain in left hip but did well with PT this am. No acute overnight events. Pain well controlled. Exam/Review of Systems Vital Signs Vitals Vital Signs Date Time Temp Pulse Resp B/P Pulse Ox O2 Delivery O2 Flow Rate FiO2 03/14/17 08:30 99.6 117 22 154/87 96 03/13/17 17:00 Nasal Cannula 2.0 Intake and Output 03/13/17 03/13/17 03/14/17 15:00 23:00 07:00 Intake Total 1400 ml 300 ml 700 ml Output Total 200 ml 800 ml Balance 1200 ml 300 ml -100 ml Exam Constitutional: alert, mild distress due to pain, oriented, well developed Head: atraumatic, normocephalic Eyes: EOMI, PERRL Neck: non-tender, supple Respiratory: clear to auscultation, diminished breath sounds bases, No crackles /rales, No wheezing Cardiovascular: Regular rate and rhythm, No murmurs Gastrointestinal: bowel sounds, non-tender, soft, No distended, No rebound or guarding Musculoskeletal: diminished ROM in LLE but improving Extremities: No cyanosis, No edema, No pitting pedal edema Neurological: INSTRUCTIONAL TECHNOLOGIST II-XII intact, 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 Results Result Diagram: 03/14/17 0640 03/14/17 0640 Results 24 hrs Laboratory Tests Test 03/13/17 14:09 03/13/17 20:37 03/14/17 02:53 03/14/17 06:40 Bedside Glucose 213 206 151 White Blood Count 10.3 Red Blood Count 3.51 L Hemoglobin 10.9 L Hematocrit 32.2 L Mean Corpuscular Volume 91.7 Mean Corpuscular Hemoglobin 31.1 Mean Corpuscular Hemoglobin Concent 33.9 Red Cell Distribution Width 12.9 Platelet Count 265 Mean Platelet Volume 10.5 H Neutrophils % 72.5 Lymphocytes % 13.3 L Monocytes % 10.5 Eosinophils % 2.4 Basophils % 0.8 Nucleated Red Blood Cells % 0.0 Neutrophils # 7.5 Lymphocytes # 1.4 Monocytes # 1.1 H Eosinophils # 0.3 Basophils # 0.1 Nucleated Red Blood Cells # 0.0 Sodium Level 135 Potassium Level 3.6 Chloride Level 99 Carbon Dioxide Level 29 Anion Gap 11 Blood Urea Nitrogen 15 Creatinine 1.31 H Glucose Level 166 Calcium Level 8.4 Phosphorus Level 3.7 Magnesium Level 1.5 L Albumin 3.3 Test 03/14/17 08:26 Bedside Glucose 178 Medications Medications Current Medications Sodium Chloride (NS) 1,000 ml @ 100 mls/hr Q10H IV Last administered on 20:49; Admin Dose 100 MLS/HR; Start 03/09/17 at 08:41; Status Future hold Ondansetron HCl (Zofran Inj) 4 mg Q6H PRN IV NAUSEA AND/OR VOMITING; Start 03/15 at 09:00; Status Future hold Acetaminophen (Tylenol Tab) 650 mg Q6H PRN PO PAIN LEVEL 1-3 OR FEVER; Start 03/09/17 at 09:00; Status Future hold Acetaminophen/ Hydrocodone Bitart ([place] (5/325)) 1 tab Q6H PRN PO MODERATE PAIN LEVEL 4-6 Last administered on 03/10/17 02:43; Admin Dose 1 TAB; Start 03/09/17 at 09:00; Status Future hold Morphine Sulfate (morphine) 2 mg Q4H PRN IV SEVERE PAIN LEVEL 7-10 Last administered on 03/13/17 08:36; Admin Dose 2 MG; Start 03/09/17 at 09:00; Status Future hold Docusate Sodium (Colace) 100 mg Q12H PRN PO CONSTIPATION; Start 03/09/17 at 09 :00; Status Future hold Magnesium Hydroxide (Milk Of Mag) 30 ml DAILY PRN PO CONSTIPATION; Start 03/09 at 09:00; Status Future hold Lorazepam (Ativan) 1 mg Q4H PRN IM agitation, anxiety Last administered on 09:40; Admin Dose 1 MG; Start 03/09/17 at 09:00; Status Future hold Diagnostic Test (Pha) (Accu-Chek) 1 ea 02 XX Last administered on 03/12/17 02 :41; Admin Dose 1 EA; Start 03/10/17 at 02:00; Status Future hold Heparin Sodium (Porcine) (Heparin (5000 Units/0.5 ml)) 5,000 unit Q12 SC Last administered on 03/10/17 08:49; Admin Dose 5,000 UNIT; Start 03/09/17 at 21: 00; Status Future Hold Clonidine (Catapres) 0.1 mg Q6H PRN PO ELEVATED SYSTOLIC BP Last administered on 03/10/17 18:49; Admin Dose 0.1 MG; Start 03/09/17 at 20:30; Status Future hold Amlodipine Besylate (Norvasc) 5 mg DAILY PO Last administered on 03/14/17 08: 33; Admin Dose 5 MG; Start 03/10/17 at 09:00; Status Future hold Multivitamins/ Minerals (Theragran-M) 1 tab DAILY PO Last administered on 03/14 08:32; Admin Dose 1 TAB; Start 03/11/17 at 09:00; Status Future hold Ascorbic Acid (Vitamin C) 500 mg BID PO Last administered on 03/14/17 08:31; Admin Dose 500 MG; Start 03/10/17 at 21:00; Status Future hold Zinc Sulfate (Zinc Sulfate) 220 mg DAILY PO Last administered on 03/14/17 08: 36; Admin Dose 220 MG; Start 03/11/17 at 09:00; Status Future hold Miscellaneous Information 1 ea NOTE XX ; Start 03/10/17 at 16:30; Status Future hold Glucose (Glutose) 15 gm Q15M PRN PO DECREASED GLUCOSE; Start 03/10/17 at 16:30 ; Status Future hold Glucose (Glutose) 22.5 gm Q15M PRN PO DECREASED GLUCOSE; Start 03/10/17 at 16: 30; Status Future hold Dextrose (D50w Syringe) 25 ml Q15M PRN IV DECREASED GLUCOSE; Start 03/10/17 at 16:30; Status Future hold Dextrose (D50w Syringe) 50 ml Q15M PRN IV DECREASED GLUCOSE; Start 03/10/17 at 16:30; Status Future hold Glucagon (Glucagen) 1 mg Q15M PRN IM DECREASED GLUCOSE; Start 03/10/17 at 16: 30; Status Future hold Glucose (Glutose) 15 gm Q15M PRN BUCCAL DECREASED GLUCOSE; Start 03/10/17 at 16:30; Status Future hold Hydralazine HCl (Apresoline) 10 mg Q6H PRN IV ELEVATED BLOOD PRESSURE Last administered on 03/11/17 09:31; Admin Dose 10 MG; Start 03/10/17 at 18:00; Status Future hold Lorazepam (Ativan) 1 mg Q4H PRN IV AGITATION/ANXIETY Last administered on 03/14 04:41; Admin Dose 1 MG; Start 03/10/17 at 18:00; Status Future hold Chlordiazepoxide (Librium) 25 mg TID PO Last administered on 03/14/17 08:31; Admin Dose 25 MG; Start 03/11/17 at 13:00; Status Future hold Thiamine HCl (Vitamin B1) 100 mg DAILY PO Last administered on 03/14/17 08:31 ; Admin Dose 100 MG; Start 03/12/17 at 09:00; Status Future hold Folic Acid (Folic Acid) 1 mg DAILY PO Last administered on 03/14/17 08:32; Admin Dose 1 MG; Start 03/12/17 at 09:00; Status Future hold Lisinopril (Zestril) 10 mg DAILY PO Last administered on 03/14/17 08:32; Admin Dose 10 MG; Start 03/11/17 at 12:30; Status Future hold Labetalol HCl (Labetalol) 10 mg Q4H PRN IV SBP >160, HR>100 Last administered on 03/11/17 15:13; Admin Dose 10 MG; Start 03/11/17 at 14:30; Status Future hold Metoprolol Tartrate (Lopressor) 25 mg BID PO Last administered on 03/14/17 08 :33; Admin Dose 25 MG; Start 03/12/17 at 09:00; Status Future hold Hydromorphone HCl (Dilaudid) 1 mg Q4H PRN IV SEVERE PAIN LEVEL 7-10 Last administered on 03/14/17 01:51; Admin Dose 1 MG; Start 03/13/17 at 13:00 Hydromorphone HCl (Dilaudid GROOVER RUNNER) Q4PCA PRN IV SEVERE PAIN 8-10; Start at 14:00; Stop 03/14/17 at 13:59 Meperidine HCl (Demerol GROOVER RUNNER) Q4PCA PRN IV SEVERE PAIN 8-10; Start 03/13/17 at 14:00; Stop 03/14/17 at 13:59 Oxycodone HCl (Roxicodone) 20 mg Q3H PRN PO PAIN LEVEL 8-10; Start 03/13/17 at 14:00 Oxycodone HCl (Roxicodone) 10 mg Q3H PRN PO PAIN LEVEL 4-7; Start 03/13/17 at 14:00 Oxycodone HCl (Roxicodone) 5 mg Q3H PRN PO PAIN LEVEL 1-3; Start 03/13/17 at 14:00 Zolpidem Tartrate (Ambien) 5 mg HS PRN PO INSOMNIA; Start 03/13/17 at 14:00 Aspirin (Ecotrin) 325 mg BID PO Last administered on 03/14/17 08:32; Admin Dose 325 MG; Start 03/14/17 at 09:00 Celecoxib (Celebrex) 200 mg BID PO Last administered on 03/14/17 08:33; Admin Dose 200 MG; Start 03/14/17 at 09:00 Dexamethasone (Decadron) 4 mg DAILY@07 IV Last administered on 03/14/17 06:38 ; Admin Dose 4 MG; Start 03/14/17 at 07:00; Stop 03/17/17 at 06:59 Pantoprazole (Protonix Tab) 40 mg DAILY@06 PO Last administered on 03/14/17 06:39; Admin Dose 40 MG; Start 03/14/17 at 06:00 Docusate Sodium/ Ferrous Fumarate (Smith-Sequels) 1 tab BID PO Last administered on 03/14/17 08:34; Admin Dose 1 TAB; Start 03/14/17 at 09:00 Docusate Sodium (Colace) 200 mg BID PO Last administered on 03/14/17 08:34; Admin Dose 200 MG; Start 03/14/17 at 09:00; Stop 03/16/17 at 21:01 Simethicone (Mylicon) 80 mg TID PRN PO DISTENSION/GAS/BLOATING; Start at 14:00 Senna/Docusate Sodium (Senokot-S) 2 tab BID PRN PO CONSTIPATION; Start at 14:00 Magnesium Hydroxide (Milk Of Mag) 30 ml HS PRN PO CONSTIPATION; Start at 14:00 Bisacodyl (Dulcolax Supp) 10 mg DAILY PRN CA CONSTIPATION; Start 03/13/17 at 14:00 Sodium Biphosphate/ Sodium Phosphate (Fleet Enema) 133 ml DAILY PRN CA CONSTIPATION; Start 03/13/17 at 14:00 Diphenhydramine HCl (Benadryl) 25 mg Q4H PRN IM ITCHING OR RASH; Start at 14:00 Ketorolac Tromethamine (Toradol) 15 mg Q6 PRN IV PAIN; Start 03/13/17 at 14:00 ; Stop 03/17/17 at 13:59 Naloxone HCl (Narcan) 0.2 mg Q2M PRN IV DECREASED REPIRATORY RATE; Start at 14:00 Naloxone HCl (Narcan) 0.2 mg Q2M PRN IV FOR RESP RATE 8 OR LESS; Start at 14:30; Stop 03/14/17 at 11:30 KRISH SANTIAGO MD Mar 14, 2017 10:53
[2017-03-14] MEDS ORDERED: MAGNESIUM SULFATE 2 GM/50 ML 50 ML IVPB ONE (11:00)
[2017-03-14] MEDS: SOD CHLORIDE 0.9% 1,000 ML IV SCH ×2 (12:49→21:22)
[2017-03-15] MEDS: LORAZEPAM 2 MG INJ IV PRN ×2 (00:28→06:20)
[2017-03-15] MEDS: HYDROmorphONE 0.5 MG/0.5 ML SYG IV PRN (01:34)
[2017-03-15] MEDS: ACCU-CHEK XX SCH (02:38)
[2017-03-15 05:33] LABS: BASOPHIL # 0.1 10^3/ul (0.0-0.1); BASOPHILS % 0.4 % (0.0-2.0); EOSINOPHILS % 0.2 % (0.0-7.0); HEMATOCRIT 28.9 % (42.0-52.0); HEMOGLOBIN 9.8 g/dl (14.0-18.0); LYMPHOCYTES # 0.9 10^3/ul (0.8-2.9); LYMPHOCYTES % 6.8 % (15.0-51.0); MEAN CORPUSCULAR HEMOGLOBIN 30.8 pg (29.0-33.0); MEAN CORPUSCULAR HGB CONC 33.9 g/dl (32.0-37.0); MEAN CORPUSCULAR VOLUME 90.9 fl (82.0-101.0); MEAN PLATELET VOLUME 10.6 fl (7.4-10.4); MONOCYTE # 1.1 10^3/ul (0.3-0.9); MONOCYTES % 8.4 % (0.0-11.0); NEUTROPHIL # 10.7 10^3/ul (1.6-7.5); NEUTROPHILS % 83.7 % (39.0-77.0); PLATELET COUNT 258 10^3/UL (140-415); RED BLOOD COUNT 3.18 10^6/ul (4.70-6.10); RED CELL DISTRIBUTION WIDTH 12.5 % (11.5-14.5); WHITE BLOOD COUNT 12.8 10^3/ul (4.8-10.8)
[2017-03-15] MEDS: PANTOPRAZOLE (EC) 40 MG TAB PO SCH (06:00)
[2017-03-15 06:05] LABS: ALBUMIN 3.2 g/dl (3.3-4.9); CALCIUM 8.7 mg/dl (8.4-10.2); CREATININE 1.31 mg/dl (0.61-1.24); MAGNESIUM 2.2 mg/dl (1.7-2.5); PHOSPHORUS 3.3 mg/dl (2.5-4.9)
[2017-03-15] MEDS: DEXAMETHASONE 4 MG/ML 1 ML INJ IV SCH (06:23)
[2017-03-15] MEDS: SOD CHLORIDE 0.9% 1,000 ML IV SCH ×2 (06:28→16:57)
[2017-03-15 07:34] VITALS: BP 121/58; RESP 18
[2017-03-15] MEDS: LISINOPRIL 10 MG TAB PO SCH (09:00)
--- NOTE | 2017-03-15 09:08 | PN ---
Date/Time of Note Date/Time of Note DATE: 03/15/17 TIME: 09:08 Assessment/Plan VTE Prophylaxis VTE Prophylaxis Intervention: SCD's Lines/Catheters IV Catheter Type (from Nrsg): Peripheral IV Urinary Cath still in place: No Assessment/Plan Assessment/Plan 1. Acute left femoral neck fracture s/p left hip hemiarthroplasty POD #2 - Ortho consulted and recommendations appreciated. Continue aspirin for DVT ppx and OOB with PT. - Consult placed to CM for Rehab evaluation vs HH with PT. - Pain control 2. KIT - IVF and encourage PO hydration - continue monitoring 3. Hyponatremia- resolved - Most likely secondary to dehydration - Will continue to monitor 4. Diabetes Mellitus, well controlled - A1c 6.1 - hold home PO medications - ISS and accuchecks 5. Anemia - stable 6. HTN - stable - on norvasc and lisinopril 7. ETOH abuse - Per daughter, patient does not drink daily but when he does its heavily - Ativan PRN, dose decreased due to excess fatigue - Librium tapered to daily for 3 days starting tomorrow - no signs of DTs 8. leukocytosis - will monitor 9. Tachycardia-- improving - Patient HR better controlled since pain control affective - ECHO shows stage 1 diastolic dysfunction with EF 55% 10. Disposition - Rehab evaluation - Continue current treatment - Taper Librium Subjective 24 Hr Interval Summary Free Text/Dictation Patient was agitated this am and given Ativan. When interviewed patient was sleepy but did awake to verbal stimulation. c/o pain in left hip but no other complaints. No overnight events. Exam/Review of Systems Vital Signs Vitals Vital Signs Date Time Temp Pulse Resp B/P Pulse Ox O2 Delivery O2 Flow Rate FiO2 03/15/17 07:34 98.0 88 18 121/58 95 03/13/17 17:00 Nasal Cannula 2.0 Intake and Output 03/14/17 03/14/17 03/15/17 15:00 23:00 07:00 Intake Total 1100 ml 950 ml Output Total 2200 ml 425 ml Balance -1100 ml 525 ml Exam Constitutional: lethargic but awakes to voice. no acute distress Head: atraumatic, normocephalic Eyes: EOMI, PERRL Neck: non-tender, supple Respiratory: clear to auscultation, diminished breath sounds bases, No crackles /rales, No wheezing Cardiovascular: Regular rate and rhythm, No murmurs Gastrointestinal: bowel sounds, non-tender, soft, No distended, No rebound or guarding Musculoskeletal: dressing left hip clean and dry. 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, 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 Results Result Diagram: 03/15/17 0425 03/15/17 0424 Results 24 hrs Laboratory Tests Test 03/14/17 11:21 03/14/17 17:28 03/14/17 21:09 03/15/17 02:34 Bedside Glucose 207 356 H 221 H 221 H Test 03/15/17 04:24 03/15/17 04:25 03/15/17 07:57 Sodium Level 141 Potassium Level 4.0 Chloride Level 105 Carbon Dioxide Level 27 Anion Gap 13 Blood Urea Nitrogen 18 Creatinine 1.31 H Glucose Level 207 Calcium Level 8.7 Phosphorus Level 3.3 Magnesium Level 2.2 Albumin 3.2 L White Blood Count 12.8 #H Red Blood Count 3.18 L Hemoglobin 9.8 L Hematocrit 28.9 L Mean Corpuscular Volume 90.9 Mean Corpuscular Hemoglobin 30.8 Mean Corpuscular Hemoglobin Concent 33.9 Red Cell Distribution Width 12.5 Platelet Count 258 Mean Platelet Volume 10.6 H Neutrophils % 83.7 H Lymphocytes % 6.8 L Monocytes % 8.4 Eosinophils % 0.2 Basophils % 0.4 Nucleated Red Blood Cells % 0.0 Neutrophils # 10.7 H Lymphocytes # 0.9 Monocytes # 1.1 H Eosinophils # 0.0 Basophils # 0.1 Nucleated Red Blood Cells # 0.0 Bedside Glucose 199 Medications Medications Current Medications Sodium Chloride (NS) 1,000 ml @ 100 mls/hr Q10H IV Last administered on t 06:28; Admin Dose 100 MLS/HR; Start 03/09/17 at 08:41; Status Future hold Ondansetron HCl (Zofran Inj) 4 mg Q6H PRN IV NAUSEA AND/OR VOMITING; Start 03/15 at 09:00; Status Future hold Acetaminophen (Tylenol Tab) 650 mg Q6H PRN PO PAIN LEVEL 1-3 OR FEVER; Start 03/09/17 at 09:00; Status Future hold Acetaminophen/ Hydrocodone Bitart ([place] (5/325)) 1 tab Q6H PRN PO MODERATE PAIN LEVEL 4-6 Last administered on 03/10/17 02:43; Admin Dose 1 TAB; Start 03/09/17 at 09:00; Status Future hold Morphine Sulfate (morphine) 2 mg Q4H PRN IV SEVERE PAIN LEVEL 7-10 Last administered on 03/13/17 08:36; Admin Dose 2 MG; Start 03/09/17 at 09:00; Status Future hold Docusate Sodium (Colace) 100 mg Q12H PRN PO CONSTIPATION; Start 03/09/17 at 09 :00; Status Future hold Magnesium Hydroxide (Milk Of Mag) 30 ml DAILY PRN PO CONSTIPATION; Start 03/09 at 09:00; Status Future hold Lorazepam (Ativan) 1 mg Q4H PRN IM agitation, anxiety Last administered on 09:40; Admin Dose 1 MG; Start 03/09/17 at 09:00; Status Future hold Diagnostic Test (Pha) (Accu-Chek) 1 ea 02 XX Last administered on 03/15/17 02 :38; Admin Dose 1 EA; Start 03/10/17 at 02:00; Status Future hold Heparin Sodium (Porcine) (Heparin (5000 Units/0.5 ml)) 5,000 unit Q12 SC Last administered on 03/10/17 08:49; Admin Dose 5,000 UNIT; Start 03/09/17 at 21: 00; Status Future Hold Clonidine (Catapres) 0.1 mg Q6H PRN PO ELEVATED SYSTOLIC BP Last administered on 03/10/17 18:49; Admin Dose 0.1 MG; Start 03/09/17 at 20:30; Status Future hold Amlodipine Besylate (Norvasc) 5 mg DAILY PO Last administered on 03/14/17 08: 33; Admin Dose 5 MG; Start 03/10/17 at 09:00; Status Future hold Multivitamins/ Minerals (Theragran-M) 1 tab DAILY PO Last administered on 03/14 08:32; Admin Dose 1 TAB; Start 03/11/17 at 09:00; Status Future hold Ascorbic Acid (Vitamin C) 500 mg BID PO Last administered on 03/14/17 21:11; Admin Dose 500 MG; Start 03/10/17 at 21:00; Status Future hold Zinc Sulfate (Zinc Sulfate) 220 mg DAILY PO Last administered on 03/14/17 08: 36; Admin Dose 220 MG; Start 03/11/17 at 09:00; Status Future hold Miscellaneous Information 1 ea NOTE XX ; Start 03/10/17 at 16:30; Status Future hold Glucose (Glutose) 15 gm Q15M PRN PO DECREASED GLUCOSE; Start 03/10/17 at 16:30 ; Status Future hold Glucose (Glutose) 22.5 gm Q15M PRN PO DECREASED GLUCOSE; Start 03/10/17 at 16: 30; Status Future hold Dextrose (D50w Syringe) 25 ml Q15M PRN IV DECREASED GLUCOSE; Start 03/10/17 at 16:30; Status Future hold Dextrose (D50w Syringe) 50 ml Q15M PRN IV DECREASED GLUCOSE; Start 03/10/17 at 16:30; Status Future hold Glucagon (Glucagen) 1 mg Q15M PRN IM DECREASED GLUCOSE; Start 03/10/17 at 16: 30; Status Future hold Glucose (Glutose) 15 gm Q15M PRN BUCCAL DECREASED GLUCOSE; Start 03/10/17 at 16:30; Status Future hold Hydralazine HCl (Apresoline) 10 mg Q6H PRN IV ELEVATED BLOOD PRESSURE Last administered on 03/11/17 09:31; Admin Dose 10 MG; Start 03/10/17 at 18:00; Status Future hold Lorazepam (Ativan) 1 mg Q4H PRN IV AGITATION/ANXIETY Last administered on 03/15 06:20; Admin Dose 1 MG; Start 03/10/17 at 18:00 Thiamine HCl (Vitamin B1) 100 mg DAILY PO Last administered on 03/14/17 08:31 ; Admin Dose 100 MG; Start 03/12/17 at 09:00; Status Future hold Folic Acid (Folic Acid) 1 mg DAILY PO Last administered on 03/14/17 08:32; Admin Dose 1 MG; Start 03/12/17 at 09:00; Status Future hold Lisinopril (Zestril) 10 mg DAILY PO Last administered on 03/14/17 08:32; Admin Dose 10 MG; Start 03/11/17 at 12:30; Status Future hold Labetalol HCl (Labetalol) 10 mg Q4H PRN IV SBP >160, HR>100 Last administered on 03/11/17 15:13; Admin Dose 10 MG; Start 03/11/17 at 14:30; Status Future hold Metoprolol Tartrate (Lopressor) 25 mg BID PO Last administered on 03/14/17 21 :12; Admin Dose 25 MG; Start 03/12/17 at 09:00; Status Future hold Hydromorphone HCl (Dilaudid) 1 mg Q4H PRN IV SEVERE PAIN LEVEL 7-10 Last administered on 03/15/17 01:34; Admin Dose 1 MG; Start 03/13/17 at 13:00 Oxycodone HCl (Roxicodone) 20 mg Q3H PRN PO PAIN LEVEL 8-10; Start 03/13/17 at 14:00 Oxycodone HCl (Roxicodone) 10 mg Q3H PRN PO PAIN LEVEL 4-7; Start 03/13/17 at 14:00 Oxycodone HCl (Roxicodone) 5 mg Q3H PRN PO PAIN LEVEL 1-3; Start 03/13/17 at 14:00 Zolpidem Tartrate (Ambien) 5 mg HS PRN PO INSOMNIA Last administered on 23:02; Admin Dose 5 MG; Start 03/13/17 at 14:00 Aspirin (Ecotrin) 325 mg BID PO Last administered on 03/14/17 21:11; Admin Dose 325 MG; Start 03/14/17 at 09:00 Celecoxib (Celebrex) 200 mg BID PO Last administered on 03/14/17 21:10; Admin Dose 200 MG; Start 03/14/17 at 09:00 Dexamethasone (Decadron) 4 mg DAILY@07 IV Last administered on 03/15/17 06:23 ; Admin Dose 4 MG; Start 03/14/17 at 07:00; Stop 03/17/17 at 06:59 Pantoprazole (Protonix Tab) 40 mg DAILY@06 PO Last administered on 03/14/17 06:39; Admin Dose 40 MG; Start 03/14/17 at 06:00 Docusate Sodium/ Ferrous Fumarate (Smith-Sequels) 1 tab BID PO Last administered on 03/14/17 21:10; Admin Dose 1 TAB; Start 03/14/17 at 09:00 Docusate Sodium (Colace) 200 mg BID PO Last administered on 03/14/17 21:10; Admin Dose 200 MG; Start 03/14/17 at 09:00; Stop 03/16/17 at 21:01 Simethicone (Mylicon) 80 mg TID PRN PO DISTENSION/GAS/BLOATING; Start at 14:00 Senna/Docusate Sodium (Senokot-S) 2 tab BID PRN PO CONSTIPATION; Start at 14:00 Magnesium Hydroxide (Milk Of Mag) 30 ml HS PRN PO CONSTIPATION; Start at 14:00 Bisacodyl (Dulcolax Supp) 10 mg DAILY PRN [place] CONSTIPATION; Start 03/13/17 at 14:00 Sodium Biphosphate/ Sodium Phosphate (Fleet Enema) 133 ml DAILY PRN [place] CONSTIPATION; Start 03/13/17 at 14:00 Diphenhydramine HCl (Benadryl) 25 mg Q4H PRN IM ITCHING OR RASH; Start at 14:00 Ketorolac Tromethamine (Toradol) 15 mg Q6 PRN IV PAIN; Start 03/13/17 at 14:00 ; Stop 03/17/17 at 13:59 Naloxone HCl (Narcan) 0.2 mg Q2M PRN IV DECREASED REPIRATORY RATE; Start at 14:00 Chlordiazepoxide (Librium) 25 mg BID PO Last administered on 03/14/17 21:11; Admin Dose 25 MG; Start 03/14/17 at 21:00 KRISH SANTIAGO MD Mar 15, 2017 09:08
[2017-03-15] MEDS: FERROUS FUMARATE (SR) TAB PO SCH ×2 (09:13→21:08)
[2017-03-15] MEDS: DOCUSATE SODIUM 100 MG CAP PO SCH ×2 (09:13→21:07)
[2017-03-15] MEDS: ZINC SULFATE 220 MG CAP PO SCH (09:13)
[2017-03-15] MEDS: ASCORBIC ACID 500 MG TAB PO SCH ×2 (09:13→21:07)
[2017-03-15] MEDS: AMLODIPINE 5 MG TAB PO SCH (09:14)
[2017-03-15] MEDS: MULTIVITAMINS/MINERALS TAB PO SCH (09:14)
[2017-03-15] MEDS: CELECOXIB 200 MG CAP PO SCH ×2 (09:14→21:08)
[2017-03-15] MEDS: THIAMINE 100 MG TAB PO SCH (09:14)
[2017-03-15] MEDS: FOLIC ACID 1 MG TAB PO SCH (09:14)
[2017-03-15] MEDS: METOPROLOL 25 MG TAB PO SCH ×2 (09:15→21:09)
[2017-03-15] MEDS: ASPIRIN (EC) 325 MG TAB PO SCH ×2 (09:15→21:08)
[2017-03-15] MEDS: Insulin NOVOLOG SS MILD Algorithm (SS with meals and bedtime) SC SCH ×4 (09:19→21:48)
[2017-03-15] MEDS: CHLORDIAZEPOXIDE 25 MG CAP PO SCH ×2 (09:19→21:07)
--- NOTE | 2017-03-15 11:15 | PN ---
Date/Time of Note Date/Time of Note DATE: 03/15/17 TIME: 11:13 Assessment/Plan VTE Prophylaxis VTE Prophylaxis Intervention: ambulation, SCD's Lines/Catheters IV Catheter Type (from Nrsg): Peripheral IV Baxter in Place (from Nrsg): No Assessment/Plan Assessment/Plan -Pain Meds as needed -Dressing is clean and intact. -OOB with PT -Patient does have fatigue today. Believed to be due to Ativan as patient was also fatigued yesterday after dose of Ativan. Discussed with nurse and stressed importance that patient gets up and weightbearing as tolerated with assist status post surgery. -ASA/SCDs for DVT Prophylaxis -Continue monitoring with Internal Medicine -Patient Stable Subjective 24 Hr Interval Summary 71-year-old male postop day 2 status post left hip hemiarthroplasty. No acute events overnight. Patient is more responsive today as he does answer questions. Denies any pain to the hip at rest. Confirms mild pain with weightbearing and movement. Patient stable at this time. Pain Control: well controlled Exam/Review of Systems Vital Signs Vitals Vital Signs Date Time Temp Pulse Resp B/P Pulse Ox O2 Delivery O2 Flow Rate FiO2 03/15/17 07:34 98.0 88 18 121/58 95 03/13/17 17:00 Nasal Cannula 2.0 Intake and Output 03/14/17 03/14/17 03/15/17 15:00 23:00 07:00 Intake Total 1100 ml 950 ml Output Total 2200 ml 425 ml Balance -1100 ml 525 ml Exam Free Text/Dictation -No complications with dressing intact. -Thigh soft -5/5 Quadriceps, Tibialis Anterior, EHL Gastrocnemius/Soleus and Peroneals -Normal Sensation -Palpable DP/PT, Capillary Refill <2 secs -No Distal Edema -Negative Nolan Sign/No calf pain -Toes Freely Movable Results Result Diagram: 03/15/17 0425 03/15/17 0424 MAO BANGURA PA-C Mar 15, 2017 11:15
[2017-03-15] MEDS: HYDROCODONE/APAP (5/325) TAB PO PRN (14:33)
[2017-03-15 18:00] VITALS: BP 148/74; RESP 19
[2017-03-15] MEDS ORDERED: LORAZEPAM 2 MG INJ IV PRN (18:00)
[2017-03-16] MEDS: SOD CHLORIDE 0.9% 1,000 ML IV SCH ×3 (00:41→09:54)
[2017-03-16] MEDS: ACCU-CHEK XX SCH (02:00)
[2017-03-16 02:51] VITALS: BP 138/70; RESP 18
[2017-03-16 05:20] LABS: BASOPHILS % 0.1 % (0.0-2.0); HEMOGLOBIN 9.8 g/dl (14.0-18.0); LYMPHOCYTES % 7.1 % (15.0-51.0); MEAN CORPUSCULAR HEMOGLOBIN 31.1 pg (29.0-33.0); MEAN CORPUSCULAR HGB CONC 33.8 g/dl (32.0-37.0); MEAN CORPUSCULAR VOLUME 92.1 fl (82.0-101.0); MEAN PLATELET VOLUME 10.5 fl (7.4-10.4); MONOCYTE # 0.8 10^3/ul (0.3-0.9); MONOCYTES % 5.6 % (0.0-11.0); NEUTROPHIL # 11.9 10^3/ul (1.6-7.5); NEUTROPHILS % 86.6 % (39.0-77.0); PLATELET COUNT 297 10^3/UL (140-415); RED BLOOD COUNT 3.15 10^6/ul (4.70-6.10); RED CELL DISTRIBUTION WIDTH 12.5 % (11.5-14.5); WHITE BLOOD COUNT 13.7 10^3/ul (4.8-10.8)
[2017-03-16] MEDS: DEXAMETHASONE 4 MG/ML 1 ML INJ IV SCH (06:23)
[2017-03-16] MEDS: PANTOPRAZOLE (EC) 40 MG TAB PO SCH (06:23)
[2017-03-16 06:37] LABS: ALBUMIN 3.3 g/dl (3.3-4.9); CALCIUM 8.9 mg/dl (8.4-10.2); CREATININE 1.18 mg/dl (0.61-1.24); PHOSPHORUS 4.5 mg/dl (2.5-4.9); POTASSIUM 4.3 mmol/L (3.5-5.1)
[2017-03-16 08:24] VITALS: BP 136/64; RESP 18
[2017-03-16] MEDS: ASPIRIN (EC) 325 MG TAB PO SCH ×2 (08:53→20:56)
[2017-03-16] MEDS: ZINC SULFATE 220 MG CAP PO SCH (08:53)
[2017-03-16] MEDS: ASCORBIC ACID 500 MG TAB PO SCH ×2 (08:53→20:55)
[2017-03-16] MEDS: DOCUSATE SODIUM 100 MG CAP PO SCH ×2 (08:53→20:55)
[2017-03-16] MEDS: MULTIVITAMINS/MINERALS TAB PO SCH (08:54)
[2017-03-16] MEDS: FERROUS FUMARATE (SR) TAB PO SCH ×2 (08:54→21:03)
[2017-03-16] MEDS: THIAMINE 100 MG TAB PO SCH (08:54)
[2017-03-16] MEDS: FOLIC ACID 1 MG TAB PO SCH (08:54)
[2017-03-16] MEDS: METOPROLOL 25 MG TAB PO SCH ×2 (08:54→20:58)
[2017-03-16] MEDS: CELECOXIB 200 MG CAP PO SCH ×2 (08:54→20:55)
[2017-03-16] MEDS: LISINOPRIL 10 MG TAB PO SCH (08:54)
[2017-03-16] MEDS: AMLODIPINE 5 MG TAB PO SCH (08:54)
[2017-03-16] MEDS ORDERED: CHLORDIAZEPOXIDE 25 MG CAP PO SCH (09:00)
[2017-03-16] MEDS: Insulin NOVOLOG SS MILD Algorithm (SS with meals and bedtime) SC SCH ×4 (09:01→21:06)
[2017-03-16] MEDS: SOD CHLORIDE 0.45% 1,000 ML IV SCH (12:01)
[2017-03-16 14:30] VITALS: BP 143/71; RESP 19
--- NOTE | 2017-03-16 14:30 | PN ---
Date/Time of Note Date/Time of Note DATE: 03/16/17 TIME: 14:28 Assessment/Plan VTE Prophylaxis VTE Prophylaxis Intervention: SCD's Lines/Catheters IV Catheter Type (from Nrsg): Peripheral IV Urinary Cath still in place: No Assessment/Plan Chief Complaint/Hosp Course Assessment/Plan 1. Acute left femoral neck fracture s/p left hip hemiarthroplasty POD #3 - Ortho consulted and recommendations appreciated. Continue aspirin for DVT ppx and OOB with PT. - Consult placed to for Rehab evaluation vs HH with PT. - Pain control #encephalopathy -episodes of confusion -2/2 likely to librium vs alcohol withdrawal -moments of complete lucid behavior 2. KIT - IVF and encourage PO hydration - continue monitoring 3. Hyponatremia- resolved - Most likely secondary to dehydration - Will continue to monitor 4. Diabetes Mellitus, well controlled - A1c 6.1 - hold home PO medications - ISS and accuchecks 5. Anemia - stable 6. HTN - stable - on norvasc and lisinopril 7. ETOH abuse - Per daughter, patient does not drink daily but when he does its heavily - Ativan PRN, dose decreased due to excess fatigue - Librium taper - no signs of DTs 8. leukocytosis - will monitor 9. Tachycardia-- improving - Patient HR better controlled since pain control affective - ECHO shows stage 1 diastolic dysfunction with EF 55% 10. Disposition - Rehab evaluation - Continue current treatment - Taper Librium Problems: Subjective 24 Hr Interval Summary Free Text/Dictation sleepy, but easily awoken Exam/Review of Systems Vital Signs Vitals Vital Signs Date Time Temp Pulse Resp B/P Pulse Ox O2 Delivery O2 Flow Rate FiO2 03/16/17 08:24 98.2 99 18 136/64 96 03/13/17 17:00 Nasal Cannula 2.0 Intake and Output 03/15/17 03/15/17 03/16/17 15:00 23:00 07:00 Intake Total 2200 ml 1390 ml Output Total 2000 ml 800 ml Balance 200 ml 590 ml Exam Constitutional: lethargic but awakes to voice. no acute distress Head: atraumatic, normocephalic Eyes: EOMI, PERRL Neck: non-tender, supple Respiratory: clear to auscultation, diminished breath sounds bases, No crackles /rales, No wheezing Cardiovascular: Regular rate and rhythm, No murmurs Gastrointestinal: bowel sounds, non-tender, soft, No distended, No rebound or guarding Musculoskeletal: dressing left hip clean and dry. 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, 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 Results Result Diagram: 03/16/17 0451 03/16/17 0451 Results 24 hrs Laboratory Tests Test 03/15/17 17:17 03/15/17 21:45 03/16/17 02:07 03/16/17 04:51 Bedside Glucose 270 H 286 H 195 White Blood Count 13.7 H Red Blood Count 3.15 L Hemoglobin 9.8 L Hematocrit 29.0 L Mean Corpuscular Volume 92.1 Mean Corpuscular Hemoglobin 31.1 Mean Corpuscular Hemoglobin Concent 33.8 Red Cell Distribution Width 12.5 Platelet Count 297 Mean Platelet Volume 10.5 H Neutrophils % 86.6 H Lymphocytes % 7.1 L Monocytes % 5.6 Eosinophils % 0.0 Basophils % 0.1 Nucleated Red Blood Cells % 0.0 Neutrophils # 11.9 H Lymphocytes # 1.0 Monocytes # 0.8 Eosinophils # 0.0 Basophils # 0.0 Nucleated Red Blood Cells # 0.0 Sodium Level 144 Potassium Level 4.3 Chloride Level 106 Carbon Dioxide Level 24 Anion Gap 18 H Blood Urea Nitrogen 20 Creatinine 1.18 Glucose Level 214 Calcium Level 8.9 Phosphorus Level 4.5 Magnesium Level 2.0 Albumin 3.3 Test 03/16/17 08:53 03/16/17 12:37 Bedside Glucose 215 253 H Medications Medications Current Medications Ondansetron HCl (Zofran Inj) 4 mg Q6H PRN IV NAUSEA AND/OR VOMITING; Start 03/15 at 09:00; Status Future hold Acetaminophen (Tylenol Tab) 650 mg Q6H PRN PO PAIN LEVEL 1-3 OR FEVER; Start 03/09/17 at 09:00; Status Future hold Acetaminophen/ Hydrocodone Bitart ([place] (5/325)) 1 tab Q6H PRN PO MODERATE PAIN LEVEL 4-6 Last administered on 03/15/17 14:33; Admin Dose 1 TAB; Start 03/09/17 at 09:00; Status Future hold Morphine Sulfate (morphine) 2 mg Q4H PRN IV SEVERE PAIN LEVEL 7-10 Last administered on 03/13/17 08:36; Admin Dose 2 MG; Start 03/09/17 at 09:00; Status Future hold Docusate Sodium (Colace) 100 mg Q12H PRN PO CONSTIPATION; Start 03/09/17 at 09 :00; Status Future hold Magnesium Hydroxide (Milk Of Mag) 30 ml DAILY PRN PO CONSTIPATION; Start 03/09 at 09:00; Status Future hold Diagnostic Test (Pha) (Accu-Chek) 1 ea 02 XX Last administered on 03/15/17 02 :38; Admin Dose 1 EA; Start 03/10/17 at 02:00; Status Future hold Heparin Sodium (Porcine) (Heparin (5000 Units/0.5 ml)) 5,000 unit Q12 SC Last administered on 03/10/17 08:49; Admin Dose 5,000 UNIT; Start 03/09/17 at 21: 00; Status Future Hold Clonidine (Catapres) 0.1 mg Q6H PRN PO ELEVATED SYSTOLIC BP Last administered on 03/10/17 18:49; Admin Dose 0.1 MG; Start 03/09/17 at 20:30; Status Future hold Amlodipine Besylate (Norvasc) 5 mg DAILY PO Last administered on 03/16/17 08: 54; Admin Dose 5 MG; Start 03/10/17 at 09:00; Status Future hold Multivitamins/ Minerals (Theragran-M) 1 tab DAILY PO Last administered on 03/16 08:54; Admin Dose 1 TAB; Start 03/11/17 at 09:00; Status Future hold Ascorbic Acid (Vitamin C) 500 mg BID PO Last administered on 03/16/17 08:53; Admin Dose 500 MG; Start 03/10/17 at 21:00; Status Future hold Zinc Sulfate (Zinc Sulfate) 220 mg DAILY PO Last administered on 03/16/17 08: 53; Admin Dose 220 MG; Start 03/11/17 at 09:00; Status Future hold Miscellaneous Information 1 ea NOTE XX ; Start 03/10/17 at 16:30; Status Future hold Glucose (Glutose) 15 gm Q15M PRN PO DECREASED GLUCOSE; Start 03/10/17 at 16:30 ; Status Future hold Glucose (Glutose) 22.5 gm Q15M PRN PO DECREASED GLUCOSE; Start 03/10/17 at 16: 30; Status Future hold Dextrose (D50w Syringe) 25 ml Q15M PRN IV DECREASED GLUCOSE; Start 03/10/17 at 16:30; Status Future hold Dextrose (D50w Syringe) 50 ml Q15M PRN IV DECREASED GLUCOSE; Start 03/10/17 at 16:30; Status Future hold Glucagon (Glucagen) 1 mg Q15M PRN IM DECREASED GLUCOSE; Start 03/10/17 at 16: 30; Status Future hold Glucose (Glutose) 15 gm Q15M PRN BUCCAL DECREASED GLUCOSE; Start 03/10/17 at 16:30; Status Future hold Hydralazine HCl (Apresoline) 10 mg Q6H PRN IV ELEVATED BLOOD PRESSURE Last administered on 03/11/17 09:31; Admin Dose 10 MG; Start 03/10/17 at 18:00; Status Future hold Thiamine HCl (Vitamin B1) 100 mg DAILY PO Last administered on 03/16/17 08:54 ; Admin Dose 100 MG; Start 03/12/17 at 09:00; Status Future hold Folic Acid (Folic Acid) 1 mg DAILY PO Last administered on 03/16/17 08:54; Admin Dose 1 MG; Start 03/12/17 at 09:00; Status Future hold Lisinopril (Zestril) 10 mg DAILY PO Last administered on 03/16/17 08:54; Admin Dose 10 MG; Start 03/11/17 at 12:30; Status Future hold Labetalol HCl (Labetalol) 10 mg Q4H PRN IV SBP >160, HR>100 Last administered on 03/11/17 15:13; Admin Dose 10 MG; Start 03/11/17 at 14:30; Status Future hold Metoprolol Tartrate (Lopressor) 25 mg BID PO Last administered on 03/16/17 08 :54; Admin Dose 25 MG; Start 03/12/17 at 09:00; Status Future hold Hydromorphone HCl (Dilaudid) 1 mg Q4H PRN IV SEVERE PAIN LEVEL 7-10 Last administered on 03/15/17 01:34; Admin Dose 1 MG; Start 03/13/17 at 13:00 Oxycodone HCl (Roxicodone) 20 mg Q3H PRN PO PAIN LEVEL 8-10 Last administered on 03/15/17 21:12; Admin Dose 20 MG; Start 03/13/17 at 14:00 Oxycodone HCl (Roxicodone) 10 mg Q3H PRN PO PAIN LEVEL 4-7; Start 03/13/17 at 14:00 Oxycodone HCl (Roxicodone) 5 mg Q3H PRN PO PAIN LEVEL 1-3; Start 03/13/17 at 14:00 Zolpidem Tartrate (Ambien) 5 mg HS PRN PO INSOMNIA Last administered on 23:02; Admin Dose 5 MG; Start 03/13/17 at 14:00 Aspirin (Ecotrin) 325 mg BID PO Last administered on 03/16/17 08:53; Admin Dose 325 MG; Start 03/14/17 at 09:00 Celecoxib (Celebrex) 200 mg BID PO Last administered on 03/16/17 08:54; Admin Dose 200 MG; Start 03/14/17 at 09:00 Dexamethasone (Decadron) 4 mg DAILY@07 IV Last administered on 03/16/17 06:23 ; Admin Dose 4 MG; Start 03/14/17 at 07:00; Stop 03/17/17 at 06:59 Pantoprazole (Protonix Tab) 40 mg DAILY@06 PO Last administered on 03/16/17 06:23; Admin Dose 40 MG; Start 03/14/17 at 06:00 Docusate Sodium/ Ferrous Fumarate (Smith-Sequels) 1 tab BID PO Last administered on 03/16/17 08:54; Admin Dose 1 TAB; Start 03/14/17 at 09:00 Docusate Sodium (Colace) 200 mg BID PO Last administered on 03/16/17 08:53; Admin Dose 200 MG; Start 03/14/17 at 09:00; Stop 03/16/17 at 21:01 Simethicone (Mylicon) 80 mg TID PRN PO DISTENSION/GAS/BLOATING; Start at 14:00 Senna/Docusate Sodium (Senokot-S) 2 tab BID PRN PO CONSTIPATION; Start at 14:00 Magnesium Hydroxide (Milk Of Mag) 30 ml HS PRN PO CONSTIPATION; Start at 14:00 Bisacodyl (Dulcolax Supp) 10 mg DAILY PRN [place] CONSTIPATION; Start 03/13/17 at 14:00 Sodium Biphosphate/ Sodium Phosphate (Fleet Enema) 133 ml DAILY PRN [place] CONSTIPATION; Start 03/13/17 at 14:00 Diphenhydramine HCl (Benadryl) 25 mg Q4H PRN IM ITCHING OR RASH; Start at 14:00 Ketorolac Tromethamine (Toradol) 15 mg Q6 PRN IV PAIN; Start 03/13/17 at 14:00 ; Stop 03/17/17 at 13:59 Naloxone HCl (Narcan) 0.2 mg Q2M PRN IV DECREASED REPIRATORY RATE; Start at 14:00 Chlordiazepoxide (Librium) 25 mg DAILY PO Last administered on 03/16/17 08:54 ; Admin Dose 25 MG; Start 03/16/17 at 09:00; Stop 03/19/17 at 08:59 Lorazepam 0.5 mg 0.5 mg Q4H PRN IV AGITATION/ANXIETY; Start 03/15/17 at 18:00 Sodium Chloride (1/2 NS) 1,000 ml @ 70 mls/hr [id number] IV Last administered on 03/16/17 12:01; Admin Dose 70 MLS/HR; Start 03/16/17 at 11:30 FIORDALIZA CANTU Mar 16, 2017 14:30
[2017-03-16 19:57] VITALS: BP 147/65; RESP 19
[2017-03-16] MEDS: CHLORDIAZEPOXIDE 5 MG CAP PO SCH (20:56)
[2017-03-17] MEDS: ACCU-CHEK XX SCH (01:31)
[2017-03-17 02:02] VITALS: BP 135/76; RESP 19
[2017-03-17] MEDS: SOD CHLORIDE 0.45% 1,000 ML IV SCH ×2 (02:55→19:00)
[2017-03-17 05:16] LABS: BASOPHILS % 0.2 % (0.0-2.0); EOSINOPHILS # 0.1 10^3/ul (0.0-0.5); EOSINOPHILS % 0.5 % (0.0-7.0); HEMATOCRIT 25.8 % (42.0-52.0); HEMOGLOBIN 8.7 g/dl (14.0-18.0); LYMPHOCYTES # 1.4 10^3/ul (0.8-2.9); LYMPHOCYTES % 14.2 % (15.0-51.0); MEAN CORPUSCULAR HEMOGLOBIN 30.6 pg (29.0-33.0); MEAN CORPUSCULAR HGB CONC 33.7 g/dl (32.0-37.0); MEAN CORPUSCULAR VOLUME 90.8 fl (82.0-101.0); MEAN PLATELET VOLUME 10.6 fl (7.4-10.4); MONOCYTE # 0.6 10^3/ul (0.3-0.9); MONOCYTES % 6.3 % (0.0-11.0); NEUTROPHIL # 7.4 10^3/ul (1.6-7.5); NEUTROPHILS % 78.3 % (39.0-77.0); PLATELET COUNT 300 10^3/UL (140-415); RED BLOOD COUNT 2.84 10^6/ul (4.70-6.10); RED CELL DISTRIBUTION WIDTH 12.3 % (11.5-14.5); WHITE BLOOD COUNT 9.5 10^3/ul (4.8-10.8)
[2017-03-17] MEDS: PANTOPRAZOLE (EC) 40 MG TAB PO SCH (05:56)
[2017-03-17] MEDS: DEXAMETHASONE 4 MG/ML 1 ML INJ IV SCH (06:24)
[2017-03-17 07:08] VITALS: BP 119/64; RESP 19
--- NOTE | 2017-03-17 08:43 | RADRPT ---
PROCEDURE: XR Chest. CLINICAL INDICATION: Shortness of breath TECHNIQUE: Single portable view of the chest was obtained COMPARISON: March 09, 2017 FINDINGS: The trachea is midline. The cardiac silhouette and pulmonary vascularity are within normal limits. T he lungs are clear. The costophrenic angles are sharp. Left humeral postsurgical changes are noted. IMPRESSION: 1. No evidence of acute cardiopulmonary disease. RPTAT: EE Physician Hiren Date Time Electronically viewed and signed by Kisha Cisneros Physician on 03/17/2017 08:43 JL/
[2017-03-17] MEDS: LISINOPRIL 10 MG TAB PO SCH (09:16)
[2017-03-17] MEDS: FERROUS FUMARATE (SR) TAB PO SCH ×2 (09:16→21:43)
[2017-03-17] MEDS: ZINC SULFATE 220 MG CAP PO SCH (09:16)
[2017-03-17] MEDS: THIAMINE 100 MG TAB PO SCH (09:16)
[2017-03-17] MEDS: MULTIVITAMINS/MINERALS TAB PO SCH (09:16)
[2017-03-17] MEDS: CELECOXIB 200 MG CAP PO SCH ×2 (09:16→21:43)
[2017-03-17] MEDS: ASCORBIC ACID 500 MG TAB PO SCH ×2 (09:17→21:43)
[2017-03-17] MEDS: METOPROLOL 25 MG TAB PO SCH ×2 (09:17→21:45)
[2017-03-17] MEDS: AMLODIPINE 5 MG TAB PO SCH (09:17)
[2017-03-17] MEDS: FOLIC ACID 1 MG TAB PO SCH (09:17)
[2017-03-17] MEDS: ASPIRIN (EC) 325 MG TAB PO SCH ×2 (09:17→21:43)
[2017-03-17] MEDS: Insulin NOVOLOG SS MILD Algorithm (SS with meals and bedtime) SC SCH ×4 (09:22→21:00)
[2017-03-17] MEDS: CHLORDIAZEPOXIDE 5 MG CAP PO SCH (09:22)
--- NOTE | 2017-03-17 12:05 | PN ---
Date/Time of Note Date/Time of Note DATE: 03/17/17 TIME: 12:03 Assessment/Plan VTE Prophylaxis VTE Prophylaxis Intervention: SCD's Lines/Catheters IV Catheter Type (from Nrsg): [place] Urinary Cath still in place: No Assessment/Plan Chief Complaint/Hosp Course Assessment/Plan #. Acute left femoral neck fracture s/p left hip hemiarthroplasty POD #3 - Ortho consulted and recommendations appreciated. Continue aspirin for DVT ppx and OOB with PT. - Consult placed to for Rehab evaluation vs HH with PT. - Pain control #encephalopathy -episodes of confusion -2/2 likely to librium vs alcohol withdrawal -moments of complete lucid behavior -improved today, stopping librium and high dose oxycodone #. KIT - IVF and encourage PO hydration - continue monitoring #. Hyponatremia- resolved - Most likely secondary to dehydration - Will continue to monitor . #Diabetes Mellitus, well controlled -A1c 6.1 - hold home PO medications - ISS and accuchecks #. Anemia - stable #. HTN - stable - on norvasc and lisinopril #. ETOH abuse - Per daughter, patient does not drink daily but when he does its heavily - Ativan PRN, dose decreased due to excess fatigue - Librium tapered off - no signs of DTs #. leukocytosis - will monitor #. Tachycardia-- improving - Patient HR better controlled since pain control affective - ECHO shows stage 1 diastolic dysfunction with EF 55% #. Disposition - Rehab evaluation - Continue current treatment - monitor confusion Problems: Subjective 24 Hr Interval Summary Free Text/Dictation more awake, able to converse and answer questions appropriately Exam/Review of Systems Vital Signs Vitals Vital Signs Date Time Temp Pulse Resp B/P Pulse Ox O2 Delivery O2 Flow Rate FiO2 03/17/17 07:08 98.5 92 19 119/64 100 03/13/17 17:00 Nasal Cannula 2.0 Intake and Output 03/16/17 03/16/17 03/17/17 15:00 23:00 07:00 Intake Total 750 ml 1070 ml 1130 ml Output Total 1100 ml 1000 ml Balance 750 ml -30 ml 130 ml Exam Constitutional: lethargic but awakes to voice. no acute distress Head: atraumatic, normocephalic Eyes: EOMI, PERRL Neck: non-tender, supple Respiratory: clear to auscultation, diminished breath sounds bases, No crackles /rales, No wheezing Cardiovascular: Regular rate and rhythm, No murmurs Gastrointestinal: bowel sounds, non-tender, soft, No distended, No rebound or guarding Musculoskeletal: dressing left hip clean and dry. 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, 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 Results Result Diagram: 03/17/17 0442 03/16/17 0451 Results 24 hrs Laboratory Tests Test 03/16/17 12:37 03/16/17 17:16 03/16/17 20:54 03/17/17 01:28 Bedside Glucose 253 H 293 H 272 H 218 Test 03/17/17 04:42 03/17/17 09:15 White Blood Count 9.5 # Red Blood Count 2.84 L Hemoglobin 8.7 L Hematocrit 25.8 L Mean Corpuscular Volume 90.8 Mean Corpuscular Hemoglobin 30.6 Mean Corpuscular Hemoglobin Concent 33.7 Red Cell Distribution Width 12.3 Platelet Count 300 Mean Platelet Volume 10.6 H Neutrophils % 78.3 H Lymphocytes % 14.2 L Monocytes % 6.3 Eosinophils % 0.5 Basophils % 0.2 Nucleated Red Blood Cells % 0.0 Neutrophils # 7.4 Lymphocytes # 1.4 Monocytes # 0.6 Eosinophils # 0.1 Basophils # 0.0 Nucleated Red Blood Cells # 0.0 Bedside Glucose 188 Medications Medications Current Medications Ondansetron HCl (Zofran Inj) 4 mg Q6H PRN IV NAUSEA AND/OR VOMITING; Start 03/15 at 09:00; Status Future hold Acetaminophen (Tylenol Tab) 650 mg Q6H PRN PO PAIN LEVEL 1-3 OR FEVER; Start 03/09/17 at 09:00; Status Future hold Acetaminophen/ Hydrocodone Bitart ([place] (5/325)) 1 tab Q6H PRN PO MODERATE PAIN LEVEL 4-6 Last administered on 03/15/17 14:33; Admin Dose 1 TAB; Start 03/09/17 at 09:00; Status Future hold Morphine Sulfate (morphine) 2 mg Q4H PRN IV SEVERE PAIN LEVEL 7-10 Last administered on 03/13/17 08:36; Admin Dose 2 MG; Start 03/09/17 at 09:00; Status Future hold Docusate Sodium (Colace) 100 mg Q12H PRN PO CONSTIPATION; Start 03/09/17 at 09 :00; Status Future hold Magnesium Hydroxide (Milk Of Mag) 30 ml DAILY PRN PO CONSTIPATION; Start 03/09 at 09:00; Status Future hold Diagnostic Test (Pha) (Accu-Chek) 1 ea 02 XX Last administered on 03/15/17 02 :38; Admin Dose 1 EA; Start 03/10/17 at 02:00; Status Future hold Heparin Sodium (Porcine) (Heparin (5000 Units/0.5 ml)) 5,000 unit Q12 SC Last administered on 03/10/17 08:49; Admin Dose 5,000 UNIT; Start 03/09/17 at 21: 00; Status Future Hold Clonidine (Catapres) 0.1 mg Q6H PRN PO ELEVATED SYSTOLIC BP Last administered on 03/10/17 18:49; Admin Dose 0.1 MG; Start 03/09/17 at 20:30; Status Future hold Amlodipine Besylate (Norvasc) 5 mg DAILY PO Last administered on 03/17/17 09: 17; Admin Dose 5 MG; Start 03/10/17 at 09:00; Status Future hold Multivitamins/ Minerals (Theragran-M) 1 tab DAILY PO Last administered on 03/17 09:16; Admin Dose 1 TAB; Start 03/11/17 at 09:00; Status Future hold Ascorbic Acid (Vitamin C) 500 mg BID PO Last administered on 03/17/17 09:17; Admin Dose 500 MG; Start 03/10/17 at 21:00; Status Future hold Zinc Sulfate (Zinc Sulfate) 220 mg DAILY PO Last administered on 03/17/17 09: 16; Admin Dose 220 MG; Start 03/11/17 at 09:00; Status Future hold Miscellaneous Information 1 ea NOTE XX ; Start 03/10/17 at 16:30; Status Future hold Glucose (Glutose) 15 gm Q15M PRN PO DECREASED GLUCOSE; Start 03/10/17 at 16:30 ; Status Future hold Glucose (Glutose) 22.5 gm Q15M PRN PO DECREASED GLUCOSE; Start 03/10/17 at 16: 30; Status Future hold Dextrose (D50w Syringe) 25 ml Q15M PRN IV DECREASED GLUCOSE; Start 03/10/17 at 16:30; Status Future hold Dextrose (D50w Syringe) 50 ml Q15M PRN IV DECREASED GLUCOSE; Start 03/10/17 at 16:30; Status Future hold Glucagon (Glucagen) 1 mg Q15M PRN IM DECREASED GLUCOSE; Start 03/10/17 at 16: 30; Status Future hold Glucose (Glutose) 15 gm Q15M PRN BUCCAL DECREASED GLUCOSE; Start 03/10/17 at 16:30; Status Future hold Hydralazine HCl (Apresoline) 10 mg Q6H PRN IV ELEVATED BLOOD PRESSURE Last administered on 03/11/17 09:31; Admin Dose 10 MG; Start 03/10/17 at 18:00; Status Future hold Thiamine HCl (Vitamin B1) 100 mg DAILY PO Last administered on 03/17/17 09:16 ; Admin Dose 100 MG; Start 03/12/17 at 09:00; Status Future hold Folic Acid (Folic Acid) 1 mg DAILY PO Last administered on 03/17/17 09:17; Admin Dose 1 MG; Start 03/12/17 at 09:00; Status Future hold Lisinopril (Zestril) 10 mg DAILY PO Last administered on 03/17/17 09:16; Admin Dose 10 MG; Start 03/11/17 at 12:30; Status Future hold Labetalol HCl (Labetalol) 10 mg Q4H PRN IV SBP >160, HR>100 Last administered on 03/11/17 15:13; Admin Dose 10 MG; Start 03/11/17 at 14:30; Status Future hold Metoprolol Tartrate (Lopressor) 25 mg BID PO Last administered on 03/17/17 09 :17; Admin Dose 25 MG; Start 03/12/17 at 09:00; Status Future hold Aspirin (Ecotrin) 325 mg BID PO Last administered on 03/17/17 09:17; Admin Dose 325 MG; Start 03/14/17 at 09:00 Celecoxib (Celebrex) 200 mg BID PO Last administered on 03/17/17 09:16; Admin Dose 200 MG; Start 03/14/17 at 09:00 Pantoprazole (Protonix Tab) 40 mg DAILY@06 PO Last administered on 03/17/17 05:56; Admin Dose 40 MG; Start 03/14/17 at 06:00 Docusate Sodium/ Ferrous Fumarate (Smith-Sequels) 1 tab BID PO Last administered on 03/17/17 09:16; Admin Dose 1 TAB; Start 03/14/17 at 09:00 Simethicone (Mylicon) 80 mg TID PRN PO DISTENSION/GAS/BLOATING; Start at 14:00 Senna/Docusate Sodium (Senokot-S) 2 tab BID PRN PO CONSTIPATION; Start at 14:00 Magnesium Hydroxide (Milk Of Mag) 30 ml HS PRN PO CONSTIPATION; Start at 14:00 Bisacodyl (Dulcolax Supp) 10 mg DAILY PRN NE CONSTIPATION; Start 03/13/17 at 14:00 Sodium Biphosphate/ Sodium Phosphate (Fleet Enema) 133 ml DAILY PRN NE CONSTIPATION; Start 03/13/17 at 14:00 Diphenhydramine HCl (Benadryl) 25 mg Q4H PRN IM ITCHING OR RASH; Start at 14:00 Ketorolac Tromethamine (Toradol) 15 mg Q6 PRN IV PAIN; Start 03/13/17 at 14:00 ; Stop 03/17/17 at 13:59 Naloxone HCl (Narcan) 0.2 mg Q2M PRN IV DECREASED REPIRATORY RATE; Start at 14:00 Lorazepam 0.5 mg 0.5 mg Q4H PRN IV AGITATION/ANXIETY; Start 03/15/17 at 18:00 Sodium Chloride (1/2 NS) 1,000 ml @ 70 mls/hr [id number] IV Last administered on 03/17/17 02:55; Admin Dose 70 MLS/HR; Start 03/16/17 at 11:30 FIORDALIZA CANTU Mar 17, 2017 12:05
[2017-03-17 16:14] VITALS: BP 163/72; RESP 20
[2017-03-17] MEDS ORDERED: INSULIN ASPART [NOVOLOG] 3 ML PEN SC ONE ×2 (17:30→17:55)
[2017-03-17 19:20] VITALS: BP 143/70; RESP 18
[2017-03-17] MEDS: HYDROCODONE/APAP (5/325) TAB PO PRN (20:27)
[2017-03-18] MEDS: ACCU-CHEK XX SCH (01:35)
[2017-03-18 02:08] VITALS: BP 150/72; RESP 18
[2017-03-18] MEDS: SOD CHLORIDE 0.45% 1,000 ML IV SCH ×2 (05:43→16:45)
[2017-03-18] MEDS: PANTOPRAZOLE (EC) 40 MG TAB PO SCH ×2 (05:43→08:31)
[2017-03-18 05:59] LABS: BASOPHILS % 0.4 % (0.0-2.0); EOSINOPHILS # 0.1 10^3/ul (0.0-0.5); EOSINOPHILS % 1.5 % (0.0-7.0); HEMATOCRIT 29.1 % (42.0-52.0); HEMOGLOBIN 9.8 g/dl (14.0-18.0); LYMPHOCYTES % 24.8 % (15.0-51.0); MEAN CORPUSCULAR HEMOGLOBIN 30.9 pg (29.0-33.0); MEAN CORPUSCULAR HGB CONC 33.7 g/dl (32.0-37.0); MEAN CORPUSCULAR VOLUME 91.8 fl (82.0-101.0); MEAN PLATELET VOLUME 10.8 fl (7.4-10.4); MONOCYTE # 0.7 10^3/ul (0.3-0.9); MONOCYTES % 8.3 % (0.0-11.0); NEUTROPHIL # 5.2 10^3/ul (1.6-7.5); NEUTROPHILS % 64.5 % (39.0-77.0); PLATELET COUNT 346 10^3/UL (140-415); RED BLOOD COUNT 3.17 10^6/ul (4.70-6.10); RED CELL DISTRIBUTION WIDTH 12.3 % (11.5-14.5)
[2017-03-18 06:58] LABS: CALCIUM 9.2 mg/dl (8.4-10.2); CREATININE 1.23 mg/dl (0.61-1.24); MAGNESIUM 1.6 mg/dl (1.7-2.5); POTASSIUM 3.6 mmol/L (3.5-5.1)
[2017-03-18] MEDS: Insulin NOVOLOG SS MILD Algorithm (SS with meals and bedtime) SC SCH ×4 (07:20→22:01)
[2017-03-18 08:25] VITALS: BP 141/71; RESP 19
[2017-03-18] MEDS: FERROUS FUMARATE (SR) TAB PO SCH ×2 (08:31→20:11)
[2017-03-18] MEDS: CELECOXIB 200 MG CAP PO SCH ×2 (08:31→20:11)
[2017-03-18] MEDS: METOPROLOL 25 MG TAB PO SCH ×2 (08:31→20:14)
[2017-03-18] MEDS: ASPIRIN (EC) 325 MG TAB PO SCH ×2 (08:31→20:11)
[2017-03-18] MEDS: MULTIVITAMINS/MINERALS TAB PO SCH (08:31)
[2017-03-18] MEDS: ZINC SULFATE 220 MG CAP PO SCH (08:31)
[2017-03-18] MEDS: FOLIC ACID 1 MG TAB PO SCH (08:31)
[2017-03-18] MEDS: THIAMINE 100 MG TAB PO SCH (08:31)
[2017-03-18] MEDS: AMLODIPINE 5 MG TAB PO SCH (08:32)
[2017-03-18] MEDS: LISINOPRIL 10 MG TAB PO SCH (08:32)
[2017-03-18] MEDS: ASCORBIC ACID 500 MG TAB PO SCH ×2 (09:00→20:11)
[2017-03-18] MEDS: HYDROCODONE/APAP (5/325) TAB PO PRN ×2 (10:21→20:31)
[2017-03-18] MEDS ORDERED: MAGNESIUM SULFATE 2 GM/50 ML 50 ML IVPB ONE (11:00)
[2017-03-18 11:45] LABS: ADD UMIC YES; UR ASCORBIC ACID NEGATIVE (NEGATIVE); UR BILIRUBIN (Dip) NEGATIVE (NEGATIVE); UR BLOOD (Dip) 1+ mg/dL (NEGATIVE); UR CLARITY CLEAR (CLEAR); UR COLOR STRAW (YELLOW); UR GLUCOSE (Dip) NEGATIVE (NEGATIVE); UR KETONES (Dip) NEGATIVE (NEGATIVE); UR LEUKOCYTE ESTERASE (Dip) NEGATIVE Leu/ul (NEGATIVE); UR NITRITE (Dip) NEGATIVE (NEGATIVE); UR RBC 3 /HPF (0-5); UR SPECIFIC GRAVITY (Dip) 1.005 (1.003-1.030); UR TOTAL PROTEIN (Dip) 1+ mg/dl (NEGATIVE); UR UROBILINOGEN (Dip) NEGATIVE (NEGATIVE)
--- NOTE | 2017-03-18 12:51 | RADRPT ---
PROCEDURE: CT Brain without contrast. CLINICAL INDICATION: Neurologic deficit TECHNIQUE: A CT of the brain was performed on multidetector high-resolution CT scanner utilizing a xial sections from the skull base through the vertex without contrast. One or more of the following dose reduction techniques were used: Automated exposure control, Adjustment of the mA and/or kV acc ording to patient size, and/or use of iterative reconstruction technique. DICOM images are available . DOSE: CTDI = 45 mGy and the DLP = 810 mGy-cm. COMPARISON: Head CT 03/09/2017 FINDINGS: No acute intracranial hemorrhage, significant mass effect or midline shift. Right frontal calcificat ion is unchanged. Mild hypoattenuation of the cerebral white matter is compatible with chronic micro vascular ischemic changes. Vascular calcifications. Prominence of the cortical sulci and ventricles are related to mild cerebral volume loss. Right maxillary sinus mucosal thickening. Old right maxi llary and right zygomatic arch fracture deformities. IMPRESSION: No significant change identified since 03/09/2017. No acute intracranial hemorrhage or mass effect. Mild chronic microvascular disease and intracranial atherosclerosis. RPTAT: AA .Tato Méndez MD, MD Date Time Electronically viewed and signed by .Tato Méndez MD, MD on 03/18/2017 12:51 .T/
[2017-03-18] MEDS: QUETIAPINE 25 MG TAB PO SCH (13:06)
--- NOTE | 2017-03-18 14:43 | PN ---
Date/Time of Note Date/Time of Note DATE: 03/18/17 TIME: 14:35 Assessment/Plan VTE Prophylaxis VTE Prophylaxis Intervention: ambulation, SCD's Lines/Catheters IV Catheter Type (from Nrsg): Peripheral IV Urinary Cath still in place: No Assessment/Plan Chief Complaint/Hosp Course Assessment/Plan #. Acute left femoral neck fracture s/p left hip hemiarthroplasty - Ortho consulted and recommendations appreciated. Continue aspirin for DVT ppx and OOB with PT. - Consult placed to for Rehab evaluation vs HH with PT. - Pain control #encephalopathy -episodes of confusion -confirmed with daughter of alcohol consumption, who lives with patient. States only twice a week. unlikely DT. -stopped librium and oxycodone -?delirium -CT noted, no acute issues -small dose of seroquel started #. KIT - IVF and encourage PO hydration - continue monitoring #. Hyponatremia- resolved - Most likely secondary to dehydration - Will continue to monitor . #Diabetes Mellitus, well controlled -A1c 6.1 - hold home PO medications - ISS and accuchecks #. Anemia - stable #. HTN - stable - on norvasc and lisinopril #. ETOH abuse - Per daughter, patient does not drink daily but when he does its heavily - Ativan PRN, dose decreased due to excess fatigue - Librium tapered off - no signs of DTs #. leukocytosis - will monitor #. Tachycardia-- improving - Patient HR better controlled since pain control affective - ECHO shows stage 1 diastolic dysfunction with EF 55% #. Disposition - Rehab evaluation - Continue current treatment - monitor confusion, washout period for librium is long Problems: Subjective 24 Hr Interval Summary Free Text/Dictation still confused, but has lucid moments Exam/Review of Systems Vital Signs Vitals Vital Signs Date Time Temp Pulse Resp B/P Pulse Ox O2 Delivery O2 Flow Rate FiO2 03/18/17 08:25 98.0 69 19 141/71 98 Intake and Output 03/17/17 03/17/17 03/18/17 15:00 23:00 07:00 Intake Total 1700 ml 1760 ml Output Total 1200 ml 2300 ml Balance 500 ml -540 ml Exam Constitutional: lethargic but responds, confused Head: atraumatic, normocephalic Eyes: EOMI, PERRL Neck: non-tender, supple Respiratory: clear to auscultation, diminished breath sounds bases, No crackles /rales, No wheezing Cardiovascular: Regular rate and rhythm, No murmurs Gastrointestinal: bowel sounds, non-tender, soft, No distended, No rebound or guarding Musculoskeletal: dressing left hip clean and dry. 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, wavering mental status, confusion with lucid moments Results Result Diagram: 03/18/17 0501 03/18/17 0501 Results 24 hrs Laboratory Tests Test 03/17/17 16:23 03/17/17 17:53 03/17/17 21:41 03/18/17 05:01 Bedside Glucose 353 H 261 H 129 White Blood Count 8.0 Red Blood Count 3.17 L Hemoglobin 9.8 L Hematocrit 29.1 L Mean Corpuscular Volume 91.8 Mean Corpuscular Hemoglobin 30.9 Mean Corpuscular Hemoglobin Concent 33.7 Red Cell Distribution Width 12.3 Platelet Count 346 Mean Platelet Volume 10.8 H Neutrophils % 64.5 Lymphocytes % 24.8 Monocytes % 8.3 Eosinophils % 1.5 Basophils % 0.4 Nucleated Red Blood Cells % 0.0 Neutrophils # 5.2 Lymphocytes # 2.0 Monocytes # 0.7 Eosinophils # 0.1 Basophils # 0.0 Nucleated Red Blood Cells # 0.0 Sodium Level 142 Potassium Level 3.6 Chloride Level 106 Carbon Dioxide Level 28 Anion Gap 12 Blood Urea Nitrogen 27 H Creatinine 1.23 Glucose Level 132 Calcium Level 9.2 Phosphorus Level 4.0 Magnesium Level 1.6 L Test 03/18/17 07:57 03/18/17 09:53 03/18/17 11:00 03/18/17 12:29 Bedside Glucose 124 209 Ammonia < 9 L Urine Color STRAW Urine Clarity CLEAR Urine pH 7.0 Urine Specific [place] 1.005 Urine Ketones NEGATIVE Urine Nitrite NEGATIVE Urine Bilirubin NEGATIVE Urine Urobilinogen NEGATIVE Urine Leukocyte Esterase NEGATIVE Urine Microscopic RBC 3 Urine Microscopic WBC 0 Urine Hemoglobin 1+ H Urine Glucose NEGATIVE Urine Total Protein 1+ H Medications Medications Current Medications Ondansetron HCl (Zofran Inj) 4 mg Q6H PRN IV NAUSEA AND/OR VOMITING; Start 03/15 at 09:00; Status Future hold Acetaminophen (Tylenol Tab) 650 mg Q6H PRN PO PAIN LEVEL 1-3 OR FEVER; Start 03/09/17 at 09:00; Status Future hold Acetaminophen/ Hydrocodone Bitart ([place] (5/325)) 1 tab Q6H PRN PO MODERATE PAIN LEVEL 4-6 Last administered on 03/18/17 10:21; Admin Dose 1 TAB; Start 03/09/17 at 09:00; Status Future hold Morphine Sulfate (morphine) 2 mg Q4H PRN IV SEVERE PAIN LEVEL 7-10 Last administered on 03/13/17 08:36; Admin Dose 2 MG; Start 03/09/17 at 09:00; Status Future hold Docusate Sodium (Colace) 100 mg Q12H PRN PO CONSTIPATION; Start 03/09/17 at 09 :00; Status Future hold Magnesium Hydroxide (Milk Of Mag) 30 ml DAILY PRN PO CONSTIPATION; Start 03/09 at 09:00; Status Future hold Diagnostic Test (Pha) (Accu-Chek) 1 ea 02 XX Last administered on 03/15/17 02 :38; Admin Dose 1 EA; Start 03/10/17 at 02:00; Status Future hold Heparin Sodium (Porcine) (Heparin (5000 Units/0.5 ml)) 5,000 unit Q12 SC Last administered on 03/10/17 08:49; Admin Dose 5,000 UNIT; Start 03/09/17 at 21: 00; Status Future Hold Clonidine (Catapres) 0.1 mg Q6H PRN PO ELEVATED SYSTOLIC BP Last administered on 03/10/17 18:49; Admin Dose 0.1 MG; Start 03/09/17 at 20:30; Status Future hold Multivitamins/ Minerals (Theragran-M) 1 tab DAILY PO Last administered on 03/18 08:31; Admin Dose 1 TAB; Start 03/11/17 at 09:00; Status Future hold Ascorbic Acid (Vitamin C) 500 mg BID PO Last administered on 03/18/17 09:00; Admin Dose 500 MG; Start 03/10/17 at 21:00; Status Future hold Zinc Sulfate (Zinc Sulfate) 220 mg DAILY PO Last administered on 03/18/17 08: 31; Admin Dose 220 MG; Start 03/11/17 at 09:00; Status Future hold Miscellaneous Information 1 ea NOTE XX ; Start 03/10/17 at 16:30; Status Future hold Glucose (Glutose) 15 gm Q15M PRN PO DECREASED GLUCOSE; Start 03/10/17 at 16:30 ; Status Future hold Glucose (Glutose) 22.5 gm Q15M PRN PO DECREASED GLUCOSE; Start 03/10/17 at 16: 30; Status Future hold Dextrose (D50w Syringe) 25 ml Q15M PRN IV DECREASED GLUCOSE; Start 03/10/17 at 16:30; Status Future hold Dextrose (D50w Syringe) 50 ml Q15M PRN IV DECREASED GLUCOSE; Start 03/10/17 at 16:30; Status Future hold Glucagon (Glucagen) 1 mg Q15M PRN IM DECREASED GLUCOSE; Start 03/10/17 at 16: 30; Status Future hold Glucose (Glutose) 15 gm Q15M PRN BUCCAL DECREASED GLUCOSE; Start 03/10/17 at 16:30; Status Future hold Hydralazine HCl (Apresoline) 10 mg Q6H PRN IV ELEVATED BLOOD PRESSURE Last administered on 03/11/17 09:31; Admin Dose 10 MG; Start 03/10/17 at 18:00; Status Future hold Thiamine HCl (Vitamin B1) 100 mg DAILY PO Last administered on 03/18/17 08:31 ; Admin Dose 100 MG; Start 03/12/17 at 09:00; Status Future hold Folic Acid (Folic Acid) 1 mg DAILY PO Last administered on 03/18/17 08:31; Admin Dose 1 MG; Start 03/12/17 at 09:00; Status Future hold Lisinopril (Zestril) 10 mg DAILY PO Last administered on 03/18/17 08:32; Admin Dose 10 MG; Start 03/11/17 at 12:30; Status Future hold Labetalol HCl (Labetalol) 10 mg Q4H PRN IV SBP >160, HR>100 Last administered on 03/11/17 15:13; Admin Dose 10 MG; Start 03/11/17 at 14:30; Status Future hold Metoprolol Tartrate (Lopressor) 25 mg BID PO Last administered on 03/18/17 08 :31; Admin Dose 25 MG; Start 03/12/17 at 09:00; Status Future hold Aspirin (Ecotrin) 325 mg BID PO Last administered on 03/18/17 08:31; Admin Dose 325 MG; Start 03/14/17 at 09:00 Celecoxib (Celebrex) 200 mg BID PO Last administered on 03/18/17 08:31; Admin Dose 200 MG; Start 03/14/17 at 09:00 Pantoprazole (Protonix Tab) 40 mg DAILY@06 PO Last administered on 03/18/17 08:31; Admin Dose 40 MG; Start 03/14/17 at 06:00 Docusate Sodium/ Ferrous Fumarate (Smith-Sequels) 1 tab BID PO Last administered on 03/18/17 08:31; Admin Dose 1 TAB; Start 03/14/17 at 09:00 Simethicone (Mylicon) 80 mg TID PRN PO DISTENSION/GAS/BLOATING; Start at 14:00 Senna/Docusate Sodium (Senokot-S) 2 tab BID PRN PO CONSTIPATION; Start at 14:00 Magnesium Hydroxide (Milk Of Mag) 30 ml HS PRN PO CONSTIPATION; Start at 14:00 Bisacodyl (Dulcolax Supp) 10 mg DAILY PRN [place] CONSTIPATION; Start 03/13/17 at 14:00 Sodium Biphosphate/ Sodium Phosphate (Fleet Enema) 133 ml DAILY PRN [place] CONSTIPATION; Start 03/13/17 at 14:00 Diphenhydramine HCl (Benadryl) 25 mg Q4H PRN IM ITCHING OR RASH; Start at 14:00 Naloxone HCl 0.2 mg 0.2 mg Q2M PRN IV DECREASED REPIRATORY RATE; Start at 14:00 Sodium Chloride (1/2 NS) 1,000 ml @ 70 mls/hr [id number] IV Last administered on 03/17/17 19:00; Admin Dose 70 MLS/HR; Start 03/16/17 at 11:30 Amlodipine Besylate (Norvasc) 10 mg DAILY PO ; Start 03/19/17 at 09:00 Quetiapine Fumarate (Seroquel) 25 mg DAILY PO Last administered on 03/18/17 13:06; Admin Dose 25 MG; Start 03/18/17 at 12:30 FIORDALIZA CANTU Mar 18, 2017 14:43
[2017-03-18 20:05] VITALS: BP 164/75; RESP 20
[2017-03-18 20:54] VITALS: BP 159/73; RESP 20
[2017-03-18] MEDS: INSULIN GLARGINE [LANtus] 3 ML PEN SC SCH (22:00)
[2017-03-18] MEDS: LORAZEPAM 1 MG TAB PO PRN (23:43)
[2017-03-19] VITALS (10 sets, daily range): BP systolic 118–188; BP diastolic 63–100; PULSE 94; RESP 18–20
[2017-03-19] MEDS: ACCU-CHEK XX SCH (01:53)
[2017-03-19] MEDS: hydrALAzine 20 MG INJ IV PRN (02:03)
[2017-03-19 05:20] LABS: BASOPHIL # 0.1 10^3/ul (0.0-0.1); BASOPHILS % 0.9 % (0.0-2.0); EOSINOPHILS # 0.2 10^3/ul (0.0-0.5); EOSINOPHILS % 2.6 % (0.0-7.0); HEMATOCRIT 34.4 % (42.0-52.0); HEMOGLOBIN 11.5 g/dl (14.0-18.0); LYMPHOCYTES # 1.9 10^3/ul (0.8-2.9); LYMPHOCYTES % 24.4 % (15.0-51.0); MEAN CORPUSCULAR HEMOGLOBIN 30.4 pg (29.0-33.0); MEAN CORPUSCULAR HGB CONC 33.4 g/dl (32.0-37.0); MEAN PLATELET VOLUME 10.5 fl (7.4-10.4); MONOCYTE # 0.7 10^3/ul (0.3-0.9); NEUTROPHIL # 4.9 10^3/ul (1.6-7.5); NEUTROPHILS % 62.6 % (39.0-77.0); PLATELET COUNT 440 10^3/UL (140-415); RED BLOOD COUNT 3.78 10^6/ul (4.70-6.10); RED CELL DISTRIBUTION WIDTH 12.4 % (11.5-14.5); WHITE BLOOD COUNT 7.8 10^3/ul (4.8-10.8)
[2017-03-19 05:55] LABS: CALCIUM 9.5 mg/dl (8.4-10.2); CREATININE 1.2 mg/dl (0.61-1.24); MAGNESIUM 1.9 mg/dl (1.7-2.5); PHOSPHORUS 3.8 mg/dl (2.5-4.9); POTASSIUM 3.9 mmol/L (3.5-5.1)
[2017-03-19] MEDS: SOD CHLORIDE 0.45% 1,000 ML IV SCH (08:30)
[2017-03-19] MEDS: ASPIRIN (EC) 325 MG TAB PO SCH ×2 (08:56→21:23)
[2017-03-19] MEDS: QUETIAPINE 25 MG TAB PO SCH (08:56)
[2017-03-19] MEDS: MULTIVITAMINS/MINERALS TAB PO SCH (08:56)
[2017-03-19] MEDS: THIAMINE 100 MG TAB PO SCH (08:56)
[2017-03-19] MEDS: HYDROCODONE/APAP (5/325) TAB PO PRN ×2 (08:56→21:22)
[2017-03-19] MEDS: LISINOPRIL 10 MG TAB PO SCH (08:57)
[2017-03-19] MEDS: ZINC SULFATE 220 MG CAP PO SCH (08:57)
[2017-03-19] MEDS: CELECOXIB 200 MG CAP PO SCH ×2 (08:58→21:23)
[2017-03-19] MEDS: FERROUS FUMARATE (SR) TAB PO SCH ×2 (08:58→21:23)
[2017-03-19] MEDS: ASCORBIC ACID 500 MG TAB PO SCH ×2 (08:58→21:22)
[2017-03-19] MEDS: FOLIC ACID 1 MG TAB PO SCH (08:58)
[2017-03-19] MEDS: AMLODIPINE 5 MG TAB PO SCH (08:58)
[2017-03-19] MEDS: METOPROLOL 25 MG TAB PO SCH ×2 (08:58→21:23)
[2017-03-19] MEDS: Insulin NOVOLOG SS MILD Algorithm (SS with meals and bedtime) SC SCH ×4 (09:00→21:21)
--- NOTE | 2017-03-19 13:51 | PN ---
Date/Time of Note Date/Time of Note DATE: 03/19/17 TIME: 13:49 Assessment/Plan VTE Prophylaxis VTE Prophylaxis Intervention: SCD's Lines/Catheters IV Catheter Type (from Nrsg): Peripheral IV Urinary Cath still in place: No Assessment/Plan Chief Complaint/Hosp Course Assessment/Plan #. Acute left femoral neck fracture s/p left hip hemiarthroplasty - Ortho consulted and recommendations appreciated. Continue aspirin for DVT ppx and OOB with PT. - Consult placed to for Rehab evaluation vs HH with PT. - Pain control #encephalopathy -episodes of confusion -confirmed with daughter of alcohol consumption, who lives with patient. States only twice a week. unlikely DT. -stopped librium and oxycodone -?delirium, neg ammonia -TSH WNL -CT noted, no acute issues -small dose of seroquel started -Still appears tired, ? washout of librium #. KIT - IVF and encourage PO hydration, resolved - continue monitoring #. Hyponatremia- resolved - Most likely secondary to dehydration - Will continue to monitor . #Diabetes Mellitus, well controlled -A1c 6.1 - hold home PO medications - ISS and accuchecks #. Anemia - stable #. HTN - stable - on norvasc and lisinopril - adjust as needed #. ETOH abuse - Per daughter, patient does not drink daily but when he does its heavily - Ativan PRN, dose decreased due to excess fatigue - Librium tapered off - no signs of DTs #. leukocytosis - will monitor -stable #. Tachycardia-- improving - Patient HR better controlled since pain control affective - ECHO shows stage 1 diastolic dysfunction with EF 55% #. Disposition - Rehab evaluation - Continue current treatment - monitor confusion, washout period for librium? Problems: Subjective 24 Hr Interval Summary Free Text/Dictation patient is able to answer all questions appropriately, but has episodes of confusion where he mentions non-sensical things Exam/Review of Systems Vital Signs Vitals Vital Signs Date Time Temp Pulse Resp B/P Pulse Ox O2 Delivery O2 Flow Rate FiO2 03/19/17 08:15 98.4 89 20 142/64 96 Intake and Output 03/18/17 03/18/17 03/19/17 14:59 22:59 06:59 Intake Total 1600 ml 1960 ml Output Total 1500 ml 1700 ml Balance 100 ml 260 ml Exam Constitutional: lethargic but responds, confused Head: atraumatic, normocephalic Eyes: EOMI, PERRL Neck: non-tender, supple Respiratory: clear to auscultation, diminished breath sounds bases, No crackles /rales, No wheezing Cardiovascular: Regular rate and rhythm, No murmurs Gastrointestinal: bowel sounds, non-tender, soft, No distended, No rebound or guarding Musculoskeletal: dressing left hip clean and dry. 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: PACKER AND CARRY OUT II-XII intact, wavering mental status, confusion with lucid moments Results Result Diagram: 03/19/17 0456 03/19/17 0456 Results 24 hrs Laboratory Tests Test 03/18/17 17:23 03/18/17 21:59 03/19/17 01:41 03/19/17 04:56 Bedside Glucose 224 H 207 184 White Blood Count 7.8 Red Blood Count 3.78 L Hemoglobin 11.5 L Hematocrit 34.4 L Mean Corpuscular Volume 91.0 Mean Corpuscular Hemoglobin 30.4 Mean Corpuscular Hemoglobin Concent 33.4 Red Cell Distribution Width 12.4 Platelet Count 440 #H Mean Platelet Volume 10.5 H Neutrophils % 62.6 Lymphocytes % 24.4 Monocytes % 9.0 Eosinophils % 2.6 Basophils % 0.9 Nucleated Red Blood Cells % 0.0 Neutrophils # 4.9 Lymphocytes # 1.9 Monocytes # 0.7 Eosinophils # 0.2 Basophils # 0.1 Nucleated Red Blood Cells # 0.0 Sodium Level 143 Potassium Level 3.9 Chloride Level 101 Carbon Dioxide Level 32 H Anion Gap 14 Blood Urea Nitrogen 20 Creatinine 1.20 Glucose Level 180 Calcium Level 9.5 Phosphorus Level 3.8 Magnesium Level 1.9 Thyroid Stimulating Hormone (TSH) 2.500 Free Thyroxine 1.57 Test 03/19/17 08:33 03/19/17 12:18 Bedside Glucose 185 264 H Medications Medications Current Medications Ondansetron HCl (Zofran Inj) 4 mg Q6H PRN IV NAUSEA AND/OR VOMITING; Start 03/15 at 09:00; Status Future hold Acetaminophen (Tylenol Tab) 650 mg Q6H PRN PO PAIN LEVEL 1-3 OR FEVER; Start 03/09/17 at 09:00; Status Future hold Acetaminophen/ Hydrocodone Bitart ([place] (5/325)) 1 tab Q6H PRN PO MODERATE PAIN LEVEL 4-6 Last administered on 03/19/17 08:56; Admin Dose 1 TAB; Start 03/09/17 at 09:00; Status Future hold Morphine Sulfate (morphine) 2 mg Q4H PRN IV SEVERE PAIN LEVEL 7-10 Last administered on 03/13/17 08:36; Admin Dose 2 MG; Start 03/09/17 at 09:00; Status Future hold Docusate Sodium (Colace) 100 mg Q12H PRN PO CONSTIPATION; Start 03/09/17 at 09 :00; Status Future hold Magnesium Hydroxide (Milk Of Mag) 30 ml DAILY PRN PO CONSTIPATION; Start 03/09 at 09:00; Status Future hold Diagnostic Test (Pha) (Accu-Chek) 1 ea 02 XX Last administered on 03/19/17 01 :53; Admin Dose 1 EA; Start 03/10/17 at 02:00; Status Future hold Heparin Sodium (Porcine) (Heparin (5000 Units/0.5 ml)) 5,000 unit Q12 SC Last administered on 03/10/17 08:49; Admin Dose 5,000 UNIT; Start 03/09/17 at 21: 00; Status Future Hold Clonidine (Catapres) 0.1 mg Q6H PRN PO ELEVATED SYSTOLIC BP Last administered on 03/10/17 18:49; Admin Dose 0.1 MG; Start 03/09/17 at 20:30; Status Future hold Multivitamins/ Minerals (Theragran-M) 1 tab DAILY PO Last administered on 03/19 08:56; Admin Dose 1 TAB; Start 03/11/17 at 09:00; Status Future hold Ascorbic Acid (Vitamin C) 500 mg BID PO Last administered on 03/19/17 08:58; Admin Dose 500 MG; Start 03/10/17 at 21:00; Status Future hold Zinc Sulfate (Zinc Sulfate) 220 mg DAILY PO Last administered on 03/19/17 08: 57; Admin Dose 220 MG; Start 03/11/17 at 09:00; Status Future hold Miscellaneous Information 1 ea NOTE XX ; Start 03/10/17 at 16:30; Status Future hold Glucose (Glutose) 15 gm Q15M PRN PO DECREASED GLUCOSE; Start 03/10/17 at 16:30 ; Status Future hold Glucose (Glutose) 22.5 gm Q15M PRN PO DECREASED GLUCOSE; Start 03/10/17 at 16: 30; Status Future hold Dextrose (D50w Syringe) 25 ml Q15M PRN IV DECREASED GLUCOSE; Start 03/10/17 at 16:30; Status Future hold Dextrose (D50w Syringe) 50 ml Q15M PRN IV DECREASED GLUCOSE; Start 03/10/17 at 16:30; Status Future hold Glucagon (Glucagen) 1 mg Q15M PRN IM DECREASED GLUCOSE; Start 03/10/17 at 16: 30; Status Future hold Glucose (Glutose) 15 gm Q15M PRN BUCCAL DECREASED GLUCOSE; Start 03/10/17 at 16:30; Status Future hold Hydralazine HCl (Apresoline) 10 mg Q6H PRN IV ELEVATED BLOOD PRESSURE Last administered on 03/19/17 02:03; Admin Dose 10 MG; Start 03/10/17 at 18:00; Status Future hold Thiamine HCl (Vitamin B1) 100 mg DAILY PO Last administered on 03/19/17 08:56 ; Admin Dose 100 MG; Start 03/12/17 at 09:00; Status Future hold Folic Acid (Folic Acid) 1 mg DAILY PO Last administered on 03/19/17 08:58; Admin Dose 1 MG; Start 03/12/17 at 09:00; Status Future hold Labetalol HCl (Labetalol) 10 mg Q4H PRN IV SBP >160, HR>100 Last administered on 03/11/17 15:13; Admin Dose 10 MG; Start 03/11/17 at 14:30; Status Future hold Metoprolol Tartrate (Lopressor) 25 mg BID PO Last administered on 03/19/17 08 :58; Admin Dose 25 MG; Start 03/12/17 at 09:00; Status Future hold Aspirin (Ecotrin) 325 mg BID PO Last administered on 03/19/17 08:56; Admin Dose 325 MG; Start 03/14/17 at 09:00 Celecoxib (Celebrex) 200 mg BID PO Last administered on 03/19/17 08:58; Admin Dose 200 MG; Start 03/14/17 at 09:00 Pantoprazole (Protonix Tab) 40 mg DAILY@06 PO Last administered on 03/18/17 08:31; Admin Dose 40 MG; Start 03/14/17 at 06:00 Docusate Sodium/ Ferrous Fumarate (Smith-Sequels) 1 tab BID PO Last administered on 03/19/17 08:58; Admin Dose 1 TAB; Start 03/14/17 at 09:00 Simethicone (Mylicon) 80 mg TID PRN PO DISTENSION/GAS/BLOATING; Start at 14:00 Senna/Docusate Sodium (Senokot-S) 2 tab BID PRN PO CONSTIPATION; Start at 14:00 Magnesium Hydroxide (Milk Of Mag) 30 ml HS PRN PO CONSTIPATION; Start at 14:00 Bisacodyl (Dulcolax Supp) 10 mg DAILY PRN [place] CONSTIPATION; Start 03/13/17 at 14:00 Sodium Biphosphate/ Sodium Phosphate (Fleet Enema) 133 ml DAILY PRN [place] CONSTIPATION; Start 03/13/17 at 14:00 Diphenhydramine HCl (Benadryl) 25 mg Q4H PRN IM ITCHING OR RASH; Start at 14:00 Naloxone HCl 0.2 mg 0.2 mg Q2M PRN IV DECREASED REPIRATORY RATE; Start at 14:00 Sodium Chloride (1/2 NS) 1,000 ml @ 70 mls/hr [id number] IV Last administered on 03/19/17 08:30; Admin Dose 70 MLS/HR; Start 03/16/17 at 11:30 Amlodipine Besylate (Norvasc) 10 mg DAILY PO Last administered on 03/19/17 08 :58; Admin Dose 10 MG; Start 03/19/17 at 09:00 Quetiapine Fumarate (Seroquel) 25 mg DAILY PO Last administered on 03/19/17 08:56; Admin Dose 25 MG; Start 03/18/17 at 12:30 Insulin Glargine (Lantus) 10 unit DAILY@20 SC Last administered on 03/18/17 22:00; Admin Dose 10 UNIT; Start 03/18/17 at 20:00 Lorazepam (Ativan) 1 mg Q4 PRN PO ANXIETY Last administered on 03/18/17 23:43 ; Admin Dose 1 MG; Start 03/18/17 at 22:30 Lisinopril (Zestril) 20 mg DAILY PO ; Start 03/20/17 at 09:00 FIORDALIZA CANTU Mar 19, 2017 13:51
[2017-03-19] MEDS: INSULIN GLARGINE [LANtus] 3 ML PEN SC SCH (21:20)
[2017-03-20] MEDS: LORAZEPAM 1 MG TAB PO PRN ×2 (00:09→21:26)
[2017-03-20] MEDS: ACCU-CHEK XX SCH (02:14)
[2017-03-20 02:15] VITALS: BP 124/65; RESP 20
[2017-03-20] MEDS: PANTOPRAZOLE (EC) 40 MG TAB PO SCH (05:48)
[2017-03-20 06:04] LABS: BASOPHIL # 0.1 10^3/ul (0.0-0.1); BASOPHILS % 0.6 % (0.0-2.0); EOSINOPHILS # 0.3 10^3/ul (0.0-0.5); EOSINOPHILS % 3.9 % (0.0-7.0); HEMATOCRIT 30.7 % (42.0-52.0); HEMOGLOBIN 10.4 g/dl (14.0-18.0); LYMPHOCYTES # 2.1 10^3/ul (0.8-2.9); LYMPHOCYTES % 26.8 % (15.0-51.0); MEAN CORPUSCULAR HEMOGLOBIN 31.1 pg (29.0-33.0); MEAN CORPUSCULAR HGB CONC 33.9 g/dl (32.0-37.0); MEAN CORPUSCULAR VOLUME 91.9 fl (82.0-101.0); MONOCYTE # 0.8 10^3/ul (0.3-0.9); MONOCYTES % 10.3 % (0.0-11.0); NEUTROPHIL # 4.5 10^3/ul (1.6-7.5); NEUTROPHILS % 57.9 % (39.0-77.0); PLATELET COUNT 417 10^3/UL (140-415); RED BLOOD COUNT 3.34 10^6/ul (4.70-6.10); RED CELL DISTRIBUTION WIDTH 12.6 % (11.5-14.5); WHITE BLOOD COUNT 7.8 10^3/ul (4.8-10.8)
[2017-03-20 06:46] LABS: CALCIUM 8.9 mg/dl (8.4-10.2); CREATININE 1.36 mg/dl (0.61-1.24); PHOSPHORUS 4.7 mg/dl (2.5-4.9); POTASSIUM 3.7 mmol/L (3.5-5.1)
[2017-03-20] MEDS: Insulin NOVOLOG SS MILD Algorithm (SS with meals and bedtime) SC SCH ×4 (07:20→21:00)
[2017-03-20 07:34] VITALS: BP 126/60; RESP 20
[2017-03-20] MEDS: ASCORBIC ACID 500 MG TAB PO SCH ×2 (08:50→21:19)
[2017-03-20] MEDS: ASPIRIN (EC) 325 MG TAB PO SCH ×2 (08:51→21:19)
[2017-03-20] MEDS: MULTIVITAMINS/MINERALS TAB PO SCH (08:51)
[2017-03-20] MEDS: METOPROLOL 25 MG TAB PO SCH ×2 (08:51→21:19)
[2017-03-20] MEDS: CELECOXIB 200 MG CAP PO SCH ×2 (08:51→21:19)
[2017-03-20] MEDS: FERROUS FUMARATE (SR) TAB PO SCH ×2 (08:51→21:19)
[2017-03-20] MEDS: FOLIC ACID 1 MG TAB PO SCH (08:51)
[2017-03-20] MEDS: AMLODIPINE 5 MG TAB PO SCH (08:51)
[2017-03-20] MEDS: LISINOPRIL 10 MG TAB PO SCH (08:52)
[2017-03-20] MEDS: ZINC SULFATE 220 MG CAP PO SCH (08:52)
[2017-03-20] MEDS: THIAMINE 100 MG TAB PO SCH (08:52)
[2017-03-20] MEDS: QUETIAPINE 25 MG TAB PO SCH (08:52)
[2017-03-20] MEDS ORDERED: METO-448 PO (13:20)
[2017-03-20] MEDS ORDERED: LANT3I SC (13:20)
[2017-03-20] MEDS ORDERED: LISI10TA2 PO (13:20)
[2017-03-20] MEDS ORDERED: AMLO-145 PO (13:20)
[2017-03-20] MEDS ORDERED: FERR1TAB14 PO (13:20)
[2017-03-20 14:00] VITALS: BP 102/51; RESP 20
[2017-03-20] MEDS: SOD CHLORIDE 0.9% 1,000 ML IV SCH (14:27)
--- NOTE | 2017-03-20 14:45 | DS ---
Date/Time of Note Date/Time of Note DATE: 03/20/17 TIME: 14:45 Discharge Summary Admission/Discharge Info Admit Date/Time Mar 09, 2017 at 08:20 Discharge Date/Time Discharge Diagnosis Status post left hemiarthroplasty of the hip Patient Condition: Stable Hospital Course Patient is a 71-year-old male with past medical history of diabetes and hypertension who presented status post fall and acute left femoral neck fracture and is currently status post left hip hemiarthroplasty. Patient was originally thought to be a chronic alcoholic and daily drinker however upon further inquiry with patient's daughter after surgery, patient only drank twice a week, however he was drinking heavily when he does drink. Originally patient was thought to have daily drinks and was started on a fairly high dose of Librium and was tapered, due to Librium was long washout, patient was confused and altered for many days after the surgery. Librium was stopped once it was noted he was not an alcoholic a daily alcoholic and after a few days patient returned back to baseline. Patient will need to be continued on his blood pressure medication and due to limited p.o. intake, patient's creatinine will increase, however usually responds very well to IV fluids. Patient was started on IV fluids and should be continued with monitoring creatinine. Patient is to follow-up with orthopedic surgery in 2 weeks. Discharge diagnosis Acute left femoral neck fracture status post left hip hemiarthroplasty Encephalopathy, resolving HPI, likely secondary to prerenal Electrolyte derangement, resolved Diabetes mellitus, A1c 6.1, Anemia, chronic, stable Hypertension Home Meds Active Scripts Insulin Glargine* (Lantus*) 100 Unit/Ml Soln, 10 UNIT SC DAILY@20 for 30 Days Prov:FIORDALIZA CANTU 03/20/17 Metoprolol Tartrate* (Lopressor*) 25 Mg Tab, 25 MG PO BID for 30 Days, #60 TAB Prov:FIORDALIZA CANTU 03/20/17 Lisinopril* (Lisinopril*) 10 Mg Tablet, 20 MG PO DAILY for 30 Days, #60 TAB Prov:FIORDALIZA CANTU 03/20/17 Ferrous Fumarate/Ascorbic Acid (Smith-Sequels 65-25 mg Caplet) 1 Each Tablet.er , 1 TAB PO BID for 30 Days, #60 TAB Prov:FIORDALIZA CANTU 03/20/17 Amlodipine Besylate* (Amlodipine Besylate*) 5 Mg Tablet, 10 MG PO DAILY for 30 Days, #60 TAB Prov:FIORDALIZA CANTU 03/20/17 Follow-up Plan Follow-up in outpatient office 10-14 days status post surgery. Primary Care Provider Care Physician No Primary Time spent on discharge: > 30 minutes Pending Labs Laboratory Tests Test 03/19/17 17:50 03/19/17 21:18 03/20/17 02:03 03/20/17 04:40 Bedside Glucose 206mg/dL (70-220) 195mg/dL (70-220) 121mg/dL (70-220) Sodium Level 141mmol/L (135-144) Potassium Level 3.7mmol/L (3.5-5.1) Chloride Level 101mmol/L (97-110) Carbon Dioxide Level 31mmol/L (21-31) Anion Gap 13 (8-16) Blood Urea Nitrogen 26mg/dl (7-20) Creatinine 1.36mg/dl (0.61-1.24) Glucose Level 112mg/dl (70-220) Calcium Level 8.9mg/dl (8.4-10.2) Phosphorus Level 4.7mg/dl (2.5-4.9) Magnesium Level 2.0mg/dl (1.7-2.5) Test 03/20/17 04:44 03/20/17 08:36 03/20/17 12:32 White Blood Count 7.810^3/ul (4.8-10.8) Red Blood Count 3.3410^6/ul (4.70-6.10) Hemoglobin 10.4g/dl (14.0-18.0) Hematocrit 30.7% (42.0-52.0) Mean Corpuscular Volume 91.9fl (82.0-101.0) Mean Corpuscular Hemoglobin 31.1pg (29.0-33.0) Mean Corpuscular Hemoglobin Concent 33.9g/dl (32.0-37.0) Red Cell Distribution Width 12.6% (11.5-14.5) Platelet Count 46601^3/UL (140-415) Mean Platelet Volume 10.0fl (7.4-10.4) Neutrophils % 57.9% (39.0-77.0) Lymphocytes % 26.8% (15.0-51.0) Monocytes % 10.3% (0.0-11.0) Eosinophils % 3.9% (0.0-7.0) Basophils % 0.6% (0.0-2.0) Nucleated Red Blood Cells % 0.0/100WBC (0.0-0.0) Neutrophils # 4.510^3/ul (1.6-7.5) Lymphocytes # 2.110^3/ul (0.8-2.9) Monocytes # 0.810^3/ul (0.3-0.9) Eosinophils # 0.310^3/ul (0.0-0.5) Basophils # 0.110^3/ul (0.0-0.1) Nucleated Red Blood Cells # 0.010^3/ul (0.0-0.0) Bedside Glucose 112mg/dL (70-220) 195mg/dL (70-220) FIORDALIZA CANTU Mar 20, 2017 14:45
[2017-03-20] MEDS: HYDROCODONE/APAP (5/325) TAB PO PRN (18:27)
[2017-03-20 20:12] VITALS: BP 125/60; RESP 20
[2017-03-20] MEDS: INSULIN GLARGINE [LANtus] 3 ML PEN SC SCH (21:24)
[2017-03-21] MEDS: ACCU-CHEK XX SCH (02:00)
[2017-03-21 02:30] VITALS: BP 120/61; PULSE 71; RESP 16
[2017-03-21] MEDS: PANTOPRAZOLE (EC) 40 MG TAB PO SCH (05:01)
[2017-03-21] MEDS: SOD CHLORIDE 0.9% 1,000 ML IV SCH (05:02)
[2017-03-21 05:25] LABS: BASOPHILS % 0.5 % (0.0-2.0); EOSINOPHILS # 0.3 10^3/ul (0.0-0.5); EOSINOPHILS % 3.2 % (0.0-7.0); HEMATOCRIT 28.5 % (42.0-52.0); HEMOGLOBIN 9.4 g/dl (14.0-18.0); LYMPHOCYTES # 2.2 10^3/ul (0.8-2.9); LYMPHOCYTES % 26.2 % (15.0-51.0); MEAN CORPUSCULAR HEMOGLOBIN 30.6 pg (29.0-33.0); MEAN CORPUSCULAR VOLUME 92.8 fl (82.0-101.0); MONOCYTE # 0.8 10^3/ul (0.3-0.9); MONOCYTES % 9.4 % (0.0-11.0); NEUTROPHILS % 60.2 % (39.0-77.0); PLATELET COUNT 412 10^3/UL (140-415); RED BLOOD COUNT 3.07 10^6/ul (4.70-6.10); RED CELL DISTRIBUTION WIDTH 12.7 % (11.5-14.5); WHITE BLOOD COUNT 8.3 10^3/ul (4.8-10.8)
[2017-03-21 05:48] LABS: CALCIUM 8.8 mg/dl (8.4-10.2); CREATININE 1.34 mg/dl (0.61-1.24); POTASSIUM 3.9 mmol/L (3.5-5.1)
[2017-03-21] MEDS: Insulin NOVOLOG SS MILD Algorithm (SS with meals and bedtime) SC SCH ×4 (07:20→21:00)
[2017-03-21 08:27] VITALS: BP 121/65; RESP 18
[2017-03-21] MEDS: MULTIVITAMINS/MINERALS TAB PO SCH (08:34)
[2017-03-21] MEDS: ZINC SULFATE 220 MG CAP PO SCH (08:34)
[2017-03-21] MEDS: AMLODIPINE 5 MG TAB PO SCH (08:35)
[2017-03-21] MEDS: FOLIC ACID 1 MG TAB PO SCH (08:35)
[2017-03-21] MEDS: FERROUS FUMARATE (SR) TAB PO SCH ×2 (08:35→20:56)
[2017-03-21] MEDS: CELECOXIB 200 MG CAP PO SCH ×2 (08:36→20:56)
[2017-03-21] MEDS: ASPIRIN (EC) 325 MG TAB PO SCH ×2 (08:36→20:57)
[2017-03-21] MEDS: METOPROLOL 25 MG TAB PO SCH ×2 (08:36→20:55)
[2017-03-21] MEDS: THIAMINE 100 MG TAB PO SCH (08:36)
[2017-03-21] MEDS: LISINOPRIL 10 MG TAB PO SCH (08:36)
[2017-03-21] MEDS: ASCORBIC ACID 500 MG TAB PO SCH ×2 (08:36→20:57)
--- NOTE | 2017-03-21 11:24 | PN ---
Date/Time of Note Date/Time of Note DATE: 03/21/17 TIME: Assessment/Plan VTE Prophylaxis VTE Prophylaxis Intervention: ambulation, SCD's Lines/Catheters IV Catheter Type (from Nrsg): Peripheral IV Urinary Cath still in place: No Assessment/Plan Chief Complaint/Hosp Course s: sitting in chair, able to communicate with no issues with commercial solar sales consultant, no confusion noted o: Constitutional: sitting in chair, alert and oriented Head: atraumatic, normocephalic Eyes: EOMI, PERRL Neck: non-tender, supple Respiratory: clear to auscultation, diminished breath sounds bases, No crackles /rales, No wheezing Cardiovascular: Regular rate and rhythm, No murmurs Gastrointestinal: bowel sounds, non-tender, soft, No distended, No rebound or guarding Musculoskeletal: dressing left hip clean and dry. 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: PLATEN PRESS FEEDER II-XII intact, intermittent confusion Assessment/Plan #. Acute left femoral neck fracture s/p left hip hemiarthroplasty - Ortho consulted and recommendations appreciated. Continue aspirin for DVT ppx and OOB with PT. - Consult placed to CM for Rehab evaluation vs HH with PT. pending ARU acceptance - Pain control #encephalopathy -episodes of confusion -confirmed with daughter of alcohol consumption, who lives with patient. States only twice a week. unlikely DT. -improving daily, mostly not confused at this time, likely librium washout #. KIT - IVF -appears to be at baseline, very mild elevation #. Hyponatremia- resolved - Most likely secondary to dehydration - Will continue to monitor . #Diabetes Mellitus, well controlled -A1c 6.1 - hold home PO medications - ISS and accuchecks #. Anemia - stable #. HTN - stable - on norvasc and lisinopril - adjust as needed #. ETOH abuse - Per daughter, patient does not drink daily but when he does its heavily - Ativan PRN, dose decreased due to excess fatigue - Librium tapered off - no signs of DTs #. leukocytosis - will monitor -stable #. Tachycardia-- improving - Patient HR better controlled since pain control affective - ECHO shows stage 1 diastolic dysfunction with EF 55% #. Disposition - Rehab evaluation - Continue current treatment - monitor confusion, washout period for librium? Problems: Exam/Review of Systems Vital Signs Vitals Vital Signs Date Time Temp Pulse Resp B/P Pulse Ox O2 Delivery O2 Flow Rate FiO2 03/21/17 08:27 97.8 72 18 121/65 99 03/21/17 02:30 Room Air Intake and Output 03/20/17 03/20/17 03/21/17 14:59 22:59 06:59 Intake Total 1040 ml 1140 ml Output Total 1100 ml Balance 1040 ml 40 ml Results Result Diagram: 03/21/17 0444 03/21/17 0444 Results 24 hrs Laboratory Tests Test 03/20/17 12:32 03/20/17 17:35 03/20/17 21:15 03/21/17 04:44 Bedside Glucose 195 195 176 White Blood Count 8.3 Red Blood Count 3.07 L Hemoglobin 9.4 L Hematocrit 28.5 L Mean Corpuscular Volume 92.8 Mean Corpuscular Hemoglobin 30.6 Mean Corpuscular Hemoglobin Concent 33.0 Red Cell Distribution Width 12.7 Platelet Count 412 Mean Platelet Volume 10.0 Neutrophils % 60.2 Lymphocytes % 26.2 Monocytes % 9.4 Eosinophils % 3.2 Basophils % 0.5 Nucleated Red Blood Cells % 0.0 Neutrophils # 5.0 Lymphocytes # 2.2 Monocytes # 0.8 Eosinophils # 0.3 Basophils # 0.0 Nucleated Red Blood Cells # 0.0 Sodium Level 142 Potassium Level 3.9 Chloride Level 106 Carbon Dioxide Level 28 Anion Gap 12 Blood Urea Nitrogen 30 H Creatinine 1.34 H Glucose Level 104 Calcium Level 8.8 Phosphorus Level 4.0 Magnesium Level 2.0 Test 03/21/17 08:46 Bedside Glucose 94 Medications Medications Current Medications Ondansetron HCl (Zofran Inj) 4 mg Q6H PRN IV NAUSEA AND/OR VOMITING; Start 03/15 at 09:00; Status Future hold Acetaminophen (Tylenol Tab) 650 mg Q6H PRN PO PAIN LEVEL 1-3 OR FEVER; Start 03/09/17 at 09:00; Status Future hold Acetaminophen/ Hydrocodone Bitart ([place] (5/325)) 1 tab Q6H PRN PO MODERATE PAIN LEVEL 4-6 Last administered on 03/20/17t 18:27; Admin Dose 1 TAB; Start 03/09/17 at 09:00; Status Future hold Morphine Sulfate (morphine) 2 mg Q4H PRN IV SEVERE PAIN LEVEL 7-10 Last administered on 03/13/17 08:36; Admin Dose 2 MG; Start 03/09/17 at 09:00; Status Future hold Docusate Sodium (Colace) 100 mg Q12H PRN PO CONSTIPATION; Start 03/09/17 at 09 :00; Status Future hold Magnesium Hydroxide (Milk Of Mag) 30 ml DAILY PRN PO CONSTIPATION; Start 03/09 at 09:00; Status Future hold Diagnostic Test (Pha) (Accu-Chek) 1 ea 02 XX Last administered on 03/20/17 02 :14; Admin Dose 1 EA; Start 03/10/17 at 02:00; Status Future hold Heparin Sodium (Porcine) (Heparin (5000 Units/0.5 ml)) 5,000 unit Q12 SC Last administered on 03/10/17 08:49; Admin Dose 5,000 UNIT; Start 03/09/17 at 21: 00; Status Future Hold Clonidine (Catapres) 0.1 mg Q6H PRN PO ELEVATED SYSTOLIC BP Last administered on 03/10/17 18:49; Admin Dose 0.1 MG; Start 03/09/17 at 20:30; Status Future hold Multivitamins/ Minerals (Theragran-M) 1 tab DAILY PO Last administered on 03/21 08:34; Admin Dose 1 TAB; Start 03/11/17 at 09:00; Status Future hold Ascorbic Acid (Vitamin C) 500 mg BID PO Last administered on 03/21/17 08:36; Admin Dose 500 MG; Start 03/10/17 at 21:00; Status Future hold Zinc Sulfate (Zinc Sulfate) 220 mg DAILY PO Last administered on 03/21/17 08: 34; Admin Dose 220 MG; Start 03/11/17 at 09:00; Status Future hold Miscellaneous Information 1 ea NOTE XX ; Start 03/10/17 at 16:30; Status Future hold Glucose (Glutose) 15 gm Q15M PRN PO DECREASED GLUCOSE; Start 03/10/17 at 16:30 ; Status Future hold Glucose (Glutose) 22.5 gm Q15M PRN PO DECREASED GLUCOSE; Start 03/10/17 at 16: 30; Status Future hold Dextrose (D50w Syringe) 25 ml Q15M PRN IV DECREASED GLUCOSE; Start 03/10/17 at 16:30; Status Future hold Dextrose (D50w Syringe) 50 ml Q15M PRN IV DECREASED GLUCOSE; Start 03/10/17 at 16:30; Status Future hold Glucagon (Glucagen) 1 mg Q15M PRN IM DECREASED GLUCOSE; Start 03/10/17 at 16: 30; Status Future hold Glucose (Glutose) 15 gm Q15M PRN BUCCAL DECREASED GLUCOSE; Start 03/10/17 at 16:30; Status Future hold Hydralazine HCl (Apresoline) 10 mg Q6H PRN IV ELEVATED BLOOD PRESSURE Last administered on 03/19/17 02:03; Admin Dose 10 MG; Start 03/10/17 at 18:00; Status Future hold Thiamine HCl (Vitamin B1) 100 mg DAILY PO Last administered on 03/21/17 08:36 ; Admin Dose 100 MG; Start 03/12/17 at 09:00; Status Future hold Folic Acid (Folic Acid) 1 mg DAILY PO Last administered on 03/21/17 08:35; Admin Dose 1 MG; Start 03/12/17 at 09:00; Status Future hold Labetalol HCl (Labetalol) 10 mg Q4H PRN IV SBP >160, HR>100 Last administered on 03/11/17 15:13; Admin Dose 10 MG; Start 03/11/17 at 14:30; Status Future hold Metoprolol Tartrate (Lopressor) 25 mg BID PO Last administered on 03/21/17 08 :36; Admin Dose 25 MG; Start 03/12/17 at 09:00; Status Future hold Aspirin (Ecotrin) 325 mg BID PO Last administered on 03/21/17 08:36; Admin Dose 325 MG; Start 03/14/17 at 09:00 Celecoxib (Celebrex) 200 mg BID PO Last administered on 03/21/17 08:36; Admin Dose 200 MG; Start 03/14/17 at 09:00 Pantoprazole (Protonix Tab) 40 mg DAILY@06 PO Last administered on 03/21/17 05:01; Admin Dose 40 MG; Start 03/14/17 at 06:00 Docusate Sodium/ Ferrous Fumarate (Smith-Sequels) 1 tab BID PO Last administered on 03/21/17 08:35; Admin Dose 1 TAB; Start 03/14/17 at 09:00 Simethicone (Mylicon) 80 mg TID PRN PO DISTENSION/GAS/BLOATING; Start at 14:00 Senna/Docusate Sodium (Senokot-S) 2 tab BID PRN PO CONSTIPATION; Start at 14:00 Magnesium Hydroxide (Milk Of Mag) 30 ml HS PRN PO CONSTIPATION; Start at 14:00 Bisacodyl (Dulcolax Supp) 10 mg DAILY PRN [place] CONSTIPATION; Start 03/13/17 at 14:00 Sodium Biphosphate/ Sodium Phosphate (Fleet Enema) 133 ml DAILY PRN [place] CONSTIPATION; Start 03/13/17 at 14:00 Diphenhydramine HCl (Benadryl) 25 mg Q4H PRN IM ITCHING OR RASH; Start at 14:00 Naloxone HCl (Narcan) 0.2 mg Q2M PRN IV DECREASED REPIRATORY RATE; Start at 14:00 Amlodipine Besylate (Norvasc) 10 mg DAILY PO Last administered on 03/21/17 08 :35; Admin Dose 10 MG; Start 03/19/17 at 09:00 Insulin Glargine (Lantus) 10 unit DAILY@20 SC Last administered on 03/20/17 21:24; Admin Dose 10 UNIT; Start 03/18/17 at 20:00 Lorazepam (Ativan) 1 mg Q4 PRN PO ANXIETY Last administered on 03/20/17 21:26 ; Admin Dose 1 MG; Start 03/18/17 at 22:30 Lisinopril 20 mg 20 mg DAILY PO Last administered on 03/21/17 08:36; Admin Dose 20 MG; Start 03/20/17 at 09:00 Sodium Chloride (NS) 1,000 ml @ 60 mls/hr [id number] IV Last administered on 05:02; Admin Dose 60 MLS/HR; Start 03/20/17 at 13:30 FIORDALIZA CANTU Mar 21, 2017 11:24
[2017-03-21] MEDS: HYDROCODONE/APAP (5/325) TAB PO PRN ×2 (14:16→20:56)
[2017-03-21 14:20] VITALS: BP 117/58; RESP 20
[2017-03-21 20:00] VITALS: BP 153/70; RESP 20
[2017-03-21] MEDS: INSULIN GLARGINE [LANtus] 3 ML PEN SC SCH (21:03)
[2017-03-21] MEDS: LORAZEPAM 1 MG TAB PO PRN (21:48)
[2017-03-22] MEDS: SOD CHLORIDE 0.9% 1,000 ML IV SCH ×2 (00:46→16:43)
[2017-03-22 02:00] VITALS: BP 159/72; RESP 20
[2017-03-22] MEDS: ACCU-CHEK XX SCH (02:00)
[2017-03-22 05:17] LABS: BASOPHIL # 0.1 10^3/ul (0.0-0.1); BASOPHILS % 0.6 % (0.0-2.0); EOSINOPHILS # 0.2 10^3/ul (0.0-0.5); EOSINOPHILS % 2.3 % (0.0-7.0); HEMATOCRIT 32.5 % (42.0-52.0); HEMOGLOBIN 10.7 g/dl (14.0-18.0); LYMPHOCYTES % 22.7 % (15.0-51.0); MEAN CORPUSCULAR HEMOGLOBIN 30.5 pg (29.0-33.0); MEAN CORPUSCULAR HGB CONC 32.9 g/dl (32.0-37.0); MEAN CORPUSCULAR VOLUME 92.6 fl (82.0-101.0); MEAN PLATELET VOLUME 11.1 fl (7.4-10.4); MONOCYTE # 0.9 10^3/ul (0.3-0.9); MONOCYTES % 10.2 % (0.0-11.0); NEUTROPHIL # 5.7 10^3/ul (1.6-7.5); NEUTROPHILS % 63.9 % (39.0-77.0); PLATELET COUNT 368 10^3/UL (140-415); RED BLOOD COUNT 3.51 10^6/ul (4.70-6.10); RED CELL DISTRIBUTION WIDTH 12.8 % (11.5-14.5); WHITE BLOOD COUNT 8.9 10^3/ul (4.8-10.8)
[2017-03-22] MEDS: PANTOPRAZOLE (EC) 40 MG TAB PO SCH (05:25)
[2017-03-22 05:58] LABS: CREATININE 1.22 mg/dl (0.61-1.24); MAGNESIUM 1.9 mg/dl (1.7-2.5); PHOSPHORUS 3.8 mg/dl (2.5-4.9); POTASSIUM 4.2 mmol/L (3.5-5.1)
[2017-03-22] MEDS: Insulin NOVOLOG SS MILD Algorithm (SS with meals and bedtime) SC SCH ×4 (07:20→20:10)
[2017-03-22 07:22] VITALS: BP 177/79; RESP 20
[2017-03-22] MEDS: ASPIRIN (EC) 325 MG TAB PO SCH ×2 (07:38→20:08)
[2017-03-22 07:49] VITALS: BP 168/77; PULSE 85
[2017-03-22] MEDS ORDERED: NITROGLYCERIN (SL) 0.4 MG TAB ONE (07:49)
[2017-03-22] MEDS: METOPROLOL 25 MG TAB PO SCH ×2 (07:52→20:08)
[2017-03-22] MEDS ORDERED: NITROGLYCERIN (SL) 0.4 MG TAB SL PRN (08:00)
[2017-03-22] MEDS ORDERED: morphine 2 MG INJ IV PRN (08:00)
[2017-03-22] MEDS: FERROUS FUMARATE (SR) TAB PO SCH ×2 (09:07→20:07)
[2017-03-22] MEDS: MULTIVITAMINS/MINERALS TAB PO SCH (09:07)
[2017-03-22] MEDS: ASCORBIC ACID 500 MG TAB PO SCH ×2 (09:07→20:08)
[2017-03-22] MEDS: ZINC SULFATE 220 MG CAP PO SCH (09:07)
[2017-03-22] MEDS: CELECOXIB 200 MG CAP PO SCH ×2 (09:07→20:07)
[2017-03-22] MEDS: THIAMINE 100 MG TAB PO SCH (09:08)
[2017-03-22] MEDS: FOLIC ACID 1 MG TAB PO SCH (09:08)
[2017-03-22] MEDS: LISINOPRIL 10 MG TAB PO SCH (09:10)
[2017-03-22] MEDS: AMLODIPINE 5 MG TAB PO SCH (09:13)
--- NOTE | 2017-03-22 11:15 | PN ---
Date/Time of Note Date/Time of Note DATE: 03/22/17 TIME: 11:13 Assessment/Plan VTE Prophylaxis VTE Prophylaxis Intervention: ambulation, SCD's Lines/Catheters Urinary Cath still in place: No Assessment/Plan Chief Complaint/Hosp Course s: 03.21 sitting in chair, able to communicate with no issues with informatics physician liaison, no confusion noted 03.22 again, sitting in chair, episode of chest discomfort earlier, no chest pain currently, not confused o: Constitutional: sitting in chair, alert and oriented Head: atraumatic, normocephalic Eyes: EOMI, PERRL Neck: non-tender, supple Respiratory: clear to auscultation, diminished breath sounds bases, No crackles /rales, No wheezing Cardiovascular: Regular rate and rhythm, No murmurs Gastrointestinal: bowel sounds, non-tender, soft, No distended, No rebound or guarding Musculoskeletal: dressing left hip clean and dry. 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: WAITRESS II-XII intact, not confused Assessment/Plan #. Acute left femoral neck fracture s/p left hip hemiarthroplasty - Ortho consulted and recommendations appreciated. Continue aspirin for DVT ppx and OOB with PT. - Consult placed to CM for Rehab evaluation vs HH with PT. pending ARU acceptance - Pain control #encephalopathy -episodes of confusion -confirmed with daughter of alcohol consumption, who lives with patient. States only twice a week. unlikely DT. -improving daily, mostly not confused at this time, likely librium washout #. KIT on ?ckd - IVF -appears to be at baseline, very mild elevation #. Hyponatremia- resolved - Most likely secondary to dehydration - Will continue to monitor . #Diabetes Mellitus, well controlled -A1c 6.1 - hold home PO medications - ISS and accuchecks #. Anemia - stable #. HTN - stable - on norvasc and lisinopril - adjust as needed #. ETOH abuse - Per daughter, patient does not drink daily but when he does its heavily - Ativan PRN, dose decreased due to excess fatigue - Librium tapered off - no signs of DTs #. leukocytosis - will monitor -stable #. Tachycardia-- improving - Patient HR better controlled since pain control affective - ECHO shows stage 1 diastolic dysfunction with EF 55% #. Disposition -DC to rehab - Continue current treatment - monitor confusion, librium likely cause of confusion, daily improvement with confusion. Problems: Exam/Review of Systems Vital Signs Vitals Vital Signs Date Time Temp Pulse Resp B/P Pulse Ox O2 Delivery O2 Flow Rate FiO2 03/22/17 07:49 85 168/77 03/22/17 07:22 97.9 20 100 03/21/17 02:30 Room Air Intake and Output 03/21/17 03/21/17 03/22/17 15:00 23:00 07:00 Intake Total 1500 ml 1480 ml Output Total 1050 ml 3100 ml Balance 450 ml -1620 ml Results Result Diagram: 03/22/17 0444 03/22/17 0444 Results 24 hrs Laboratory Tests Test 03/21/17 12:38 03/21/17 17:51 03/21/17 21:01 03/22/17 04:44 Bedside Glucose 145 224 H 155 White Blood Count 8.9 Red Blood Count 3.51 L Hemoglobin 10.7 L Hematocrit 32.5 L Mean Corpuscular Volume 92.6 Mean Corpuscular Hemoglobin 30.5 Mean Corpuscular Hemoglobin Concent 32.9 Red Cell Distribution Width 12.8 Platelet Count 368 Mean Platelet Volume 11.1 H Neutrophils % 63.9 Lymphocytes % 22.7 Monocytes % 10.2 Eosinophils % 2.3 Basophils % 0.6 Nucleated Red Blood Cells % 0.0 Neutrophils # 5.7 Lymphocytes # 2.0 Monocytes # 0.9 Eosinophils # 0.2 Basophils # 0.1 Nucleated Red Blood Cells # 0.0 Sodium Level 143 Potassium Level 4.2 Chloride Level 106 Carbon Dioxide Level 28 Anion Gap 13 Blood Urea Nitrogen 27 H Creatinine 1.22 Glucose Level 101 Calcium Level 9.0 Phosphorus Level 3.8 Magnesium Level 1.9 Test 03/22/17 08:00 03/22/17 08:29 Troponin I 0.016 Bedside Glucose 127 Medications Medications Current Medications Ondansetron HCl (Zofran Inj) 4 mg Q6H PRN IV NAUSEA AND/OR VOMITING; Start 03/15 at 09:00; Status Future hold Acetaminophen (Tylenol Tab) 650 mg Q6H PRN PO PAIN LEVEL 1-3 OR FEVER; Start 03/09/17 at 09:00; Status Future hold Acetaminophen/ Hydrocodone Bitart ([place] (5/325)) 1 tab Q6H PRN PO MODERATE PAIN LEVEL 4-6 Last administered on 03/21/17 20:56; Admin Dose 1 TAB; Start 03/09/17 at 09:00; Status Future hold Morphine Sulfate (morphine) 2 mg Q4H PRN IV SEVERE PAIN LEVEL 7-10 Last administered on 03/13/17 08:36; Admin Dose 2 MG; Start 03/09/17 at 09:00; Status Future hold Docusate Sodium (Colace) 100 mg Q12H PRN PO CONSTIPATION; Start 03/09/17 at 09 :00; Status Future hold Magnesium Hydroxide (Milk Of Mag) 30 ml DAILY PRN PO CONSTIPATION; Start 03/09 at 09:00; Status Future hold Diagnostic Test (Pha) (Accu-Chek) 1 ea 02 XX Last administered on 03/20/17 02 :14; Admin Dose 1 EA; Start 03/10/17 at 02:00; Status Future hold Heparin Sodium (Porcine) (Heparin (5000 Units/0.5 ml)) 5,000 unit Q12 SC Last administered on 03/10/17 08:49; Admin Dose 5,000 UNIT; Start 03/09/17 at 21: 00; Status Future Hold Clonidine (Catapres) 0.1 mg Q6H PRN PO ELEVATED SYSTOLIC BP Last administered on 03/10/17 18:49; Admin Dose 0.1 MG; Start 03/09/17 at 20:30; Status Future hold Multivitamins/ Minerals (Theragran-M) 1 tab DAILY PO Last administered on 03/22 09:07; Admin Dose 1 TAB; Start 03/11/17 at 09:00; Status Future hold Ascorbic Acid (Vitamin C) 500 mg BID PO Last administered on 03/22/17 09:07; Admin Dose 500 MG; Start 03/10/17 at 21:00; Status Future hold Zinc Sulfate (Zinc Sulfate) 220 mg DAILY PO Last administered on 03/22/17 09: 07; Admin Dose 220 MG; Start 03/11/17 at 09:00; Status Future hold Miscellaneous Information 1 ea NOTE XX ; Start 03/10/17 at 16:30; Status Future hold Glucose (Glutose) 15 gm Q15M PRN PO DECREASED GLUCOSE; Start 03/10/17 at 16:30 ; Status Future hold Glucose (Glutose) 22.5 gm Q15M PRN PO DECREASED GLUCOSE; Start 03/10/17 at 16: 30; Status Future hold Dextrose (D50w Syringe) 25 ml Q15M PRN IV DECREASED GLUCOSE; Start 03/10/17 at 16:30; Status Future hold Dextrose (D50w Syringe) 50 ml Q15M PRN IV DECREASED GLUCOSE; Start 03/10/17 at 16:30; Status Future hold Glucagon (Glucagen) 1 mg Q15M PRN IM DECREASED GLUCOSE; Start 03/10/17 at 16: 30; Status Future hold Glucose (Glutose) 15 gm Q15M PRN BUCCAL DECREASED GLUCOSE; Start 03/10/17 at 16:30; Status Future hold Hydralazine HCl (Apresoline) 10 mg Q6H PRN IV ELEVATED BLOOD PRESSURE Last administered on 03/19/17 02:03; Admin Dose 10 MG; Start 03/10/17 at 18:00; Status Future hold Thiamine HCl (Vitamin B1) 100 mg DAILY PO Last administered on 03/22/17 09:08 ; Admin Dose 100 MG; Start 03/12/17 at 09:00; Status Future hold Folic Acid (Folic Acid) 1 mg DAILY PO Last administered on 03/22/17 09:08; Admin Dose 1 MG; Start 03/12/17 at 09:00; Status Future hold Labetalol HCl (Labetalol) 10 mg Q4H PRN IV SBP >160, HR>100 Last administered on 03/11/17 15:13; Admin Dose 10 MG; Start 03/11/17 at 14:30; Status Future hold Metoprolol Tartrate (Lopressor) 25 mg BID PO Last administered on 03/22/17 07 :52; Admin Dose 25 MG; Start 03/12/17 at 09:00; Status Future hold Aspirin (Ecotrin) 325 mg BID PO Last administered on 03/22/17 07:38; Admin Dose 325 MG; Start 03/14/17 at 09:00 Celecoxib (Celebrex) 200 mg BID PO Last administered on 03/22/17 09:07; Admin Dose 200 MG; Start 03/14/17 at 09:00 Pantoprazole (Protonix Tab) 40 mg DAILY@06 PO Last administered on 03/22/17 05:25; Admin Dose 40 MG; Start 03/14/17 at 06:00 Docusate Sodium/ Ferrous Fumarate (Smith-Sequels) 1 tab BID PO Last administered on 03/22/17 09:07; Admin Dose 1 TAB; Start 03/14/17 at 09:00 Simethicone (Mylicon) 80 mg TID PRN PO DISTENSION/GAS/BLOATING; Start at 14:00 Senna/Docusate Sodium (Senokot-S) 2 tab BID PRN PO CONSTIPATION; Start at 14:00 Magnesium Hydroxide (Milk Of Mag) 30 ml HS PRN PO CONSTIPATION; Start at 14:00 Bisacodyl (Dulcolax Supp) 10 mg DAILY PRN [place] CONSTIPATION; Start 03/13/17 at 14:00 Sodium Biphosphate/ Sodium Phosphate (Fleet Enema) 133 ml DAILY PRN [place] CONSTIPATION; Start 03/13/17 at 14:00 Diphenhydramine HCl (Benadryl) 25 mg Q4H PRN IM ITCHING OR RASH; Start at 14:00 Naloxone HCl (Narcan) 0.2 mg Q2M PRN IV DECREASED REPIRATORY RATE; Start at 14:00 Amlodipine Besylate (Norvasc) 10 mg DAILY PO Last administered on 03/22/17 09 :13; Admin Dose 10 MG; Start 03/19/17 at 09:00 Insulin Glargine (Lantus) 10 unit DAILY@20 SC Last administered on 03/21/17 21:03; Admin Dose 10 UNIT; Start 03/18/17 at 20:00 Lorazepam (Ativan) 1 mg Q4 PRN PO ANXIETY Last administered on 03/21/17 21:48 ; Admin Dose 1 MG; Start 03/18/17 at 22:30 Lisinopril 20 mg 20 mg DAILY PO Last administered on 03/22/17 09:10; Admin Dose 20 MG; Start 03/20/17 at 09:00 Sodium Chloride (NS) 1,000 ml @ 60 mls/hr [id number] IV Last administered on 00:46; Admin Dose 60 MLS/HR; Start 03/20/17 at 13:30 Nitroglycerin (Nitroglycerin (Sl Tab) 0.4 Mg) 1 tab Q5M PRN SL ANGINA Last administered on 03/22/17t 07:56; Admin Dose 1 TAB; Start 03/22/17 at 08:00 Morphine Sulfate (morphine) 2 mg PRN PRN IV IF SL NTG NOT EFFECTIVE; Start at 08:00 FIORDALIZA CANTU Mar 22, 2017 11:15
[2017-03-22] MEDS: hydrALAzine 20 MG INJ IV PRN (12:55)
[2017-03-22 14:00] VITALS: BP 140/64; RESP 18
--- NOTE | 2017-03-22 16:11 | RADRPT ---
Vent Rate: 95 bpm RR Interval: 0 msec LA Interval: 140 msec QRS Duration: 78 msec QT Interval: 356 msec QTC Interval: 447 msec P-R-T [place]: 83 - 62 - 70 degrees Sinus rhythm with occasional premature ventricular complexes ST abnormality, possible digitalis effect Abnormal ECG Electronically Signed By: Jacoby Watson [id number]
[2017-03-22] MEDS: ACETAMINOPHEN 325 MG TAB PO PRN (17:23)
[2017-03-22] MEDS: LORAZEPAM 1 MG TAB PO PRN (18:19)
[2017-03-22 19:17] VITALS: BP 151/80; RESP 18
[2017-03-22] MEDS: HYDROCODONE/APAP (5/325) TAB PO PRN (20:07)
[2017-03-22] MEDS: INSULIN GLARGINE [LANtus] 3 ML PEN SC SCH (20:10)
[2017-03-23] MEDS: ACCU-CHEK XX SCH (01:58)
[2017-03-23 02:02] VITALS: BP 157/67; RESP 18
[2017-03-23] MEDS: PANTOPRAZOLE (EC) 40 MG TAB PO SCH (06:21)
[2017-03-23] MEDS: Insulin NOVOLOG SS MILD Algorithm (SS with meals and bedtime) SC SCH ×4 (07:20→20:24)
[2017-03-23 08:04] VITALS: BP 169/75; RESP 18
[2017-03-23] MEDS: CELECOXIB 200 MG CAP PO SCH (08:25)
[2017-03-23] MEDS: THIAMINE 100 MG TAB PO SCH (08:25)
[2017-03-23] MEDS: FERROUS FUMARATE (SR) TAB PO SCH ×2 (08:25→20:21)
[2017-03-23] MEDS: FOLIC ACID 1 MG TAB PO SCH (08:25)
[2017-03-23] MEDS: ASPIRIN (EC) 325 MG TAB PO SCH ×2 (08:25→20:21)
[2017-03-23] MEDS: ZINC SULFATE 220 MG CAP PO SCH (08:25)
[2017-03-23] MEDS: ASCORBIC ACID 500 MG TAB PO SCH ×2 (08:25→20:21)
[2017-03-23] MEDS: MULTIVITAMINS/MINERALS TAB PO SCH (08:25)
[2017-03-23] MEDS: METOPROLOL 25 MG TAB PO SCH ×2 (08:26→20:22)
[2017-03-23] MEDS: AMLODIPINE 5 MG TAB PO SCH (08:27)
[2017-03-23] MEDS: LISINOPRIL 10 MG TAB PO SCH (08:27)
[2017-03-23] MEDS: SOD CHLORIDE 0.9% 1,000 ML IV SCH (09:31)
[2017-03-23] MEDS: HYDROCODONE/APAP (5/325) TAB PO PRN (11:39)
[2017-03-23] MEDS ORDERED: METO-448 PO (11:40)
--- NOTE | 2017-03-23 12:12 | PN ---
Date/Time of Note Date/Time of Note DATE: 03/23/17 TIME: 12:11 Assessment/Plan VTE Prophylaxis VTE Prophylaxis Intervention: ambulation, SCD's Lines/Catheters IV Catheter Type (from Nrsg): Peripheral IV Urinary Cath still in place: No Assessment/Plan Chief Complaint/Hosp Course s: 11.23 sitting in chair, able to communicate with no issues with qualitative researcher, no confusion noted 11.24 again, sitting in chair, episode of chest discomfort earlier, no chest pain currently, not confused 11.25 moments of confusion reported overnight, ?owning, no confusion upon encounter o: Constitutional: sitting in chair, alert and oriented Head: atraumatic, normocephalic Eyes: EOMI, PERRL Neck: non-tender, supple Respiratory: clear to auscultation, diminished breath sounds bases, No crackles /rales, No wheezing Cardiovascular: Regular rate and rhythm, No murmurs Gastrointestinal: bowel sounds, non-tender, soft, No distended, No rebound or guarding Musculoskeletal: dressing left hip clean and dry. 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: DEPUTY SHERIFF LIEUTENANT II-XII intact, not confused Assessment/Plan #. Acute left femoral neck fracture s/p left hip hemiarthroplasty - Ortho consulted and recommendations appreciated. Continue aspirin for DVT ppx and OOB with PT. - Consult placed to CM for Rehab evaluation vs HH with PT. pending ARU acceptance - Pain control #encephalopathy -episodes of confusion -confirmed with daughter of alcohol consumption, who lives with patient. States only twice a week. unlikely DT. -improving daily, mostly not confused at this time, likely librium washout #. KIT on ?ckd - IVF -appears to be at baseline, very mild elevation #. Hyponatremia- resolved - Most likely secondary to dehydration - Will continue to monitor . #Diabetes Mellitus, well controlled -A1c 6.1 - hold home PO medications - ISS and accuchecks #. Anemia - stable #. HTN - stable - on norvasc and lisinopril - adjust as needed #. ETOH abuse - Per daughter, patient does not drink daily but when he does its heavily - Ativan PRN, dose decreased due to excess fatigue - Librium tapered off - no signs of DTs #. leukocytosis - will monitor -stable #. Tachycardia-- improving - Patient HR better controlled since pain control affective - ECHO shows stage 1 diastolic dysfunction with EF 55% #. Disposition -DC to rehab - Continue current treatment - monitor confusion, librium likely cause of confusion, daily improvement with confusion. Problems: Exam/Review of Systems Vital Signs Vitals Vital Signs Date Time Temp Pulse Resp B/P Pulse Ox O2 Delivery O2 Flow Rate FiO2 03/23/17 08:04 98.0 88 18 169/75 96 03/21/17 02:30 Room Air Intake and Output 03/22/17 03/22/17 03/23/17 15:00 23:00 07:00 Intake Total 2300 ml 1360 ml Output Total 1500 ml 1850 ml Balance 800 ml -490 ml Results Result Diagram: 03/22/1744303/22/17 0444 Results 24 hrs Laboratory Tests Test 03/22/17 12:46 03/22/17 13:52 03/22/17 17:42 03/22/17 19:46 Bedside Glucose 162 302 H Troponin I < 0.012 0.031 Test 03/22/17 19:52 03/23/17 08:40 Bedside Glucose 180 103 Medications Medications Current Medications Ondansetron HCl (Zofran Inj) 4 mg Q6H PRN IV NAUSEA AND/OR VOMITING Last administered on 03/22/17 12:55; Admin Dose 4 MG; Start 03/09/17 at 09:00; Status Future hold Acetaminophen (Tylenol Tab) 650 mg Q6H PRN PO PAIN LEVEL 1-3 OR FEVER Last administered on 03/22/17 17:23; Admin Dose 650 MG; Start 03/09/17 at 09:00; Status Future hold Acetaminophen/ Hydrocodone Bitart ([place] (5/325)) 1 tab Q6H PRN PO MODERATE PAIN LEVEL 4-6 Last administered on 03/23/17 11:39; Admin Dose 1 TAB; Start 03/09/17 at 09:00; Status Future hold Morphine Sulfate (morphine) 2 mg Q4H PRN IV SEVERE PAIN LEVEL 7-10 Last administered on 03/13/17 08:36; Admin Dose 2 MG; Start 03/09/17 at 09:00; Status Future hold Docusate Sodium (Colace) 100 mg Q12H PRN PO CONSTIPATION; Start 03/09/17 at 09 :00; Status Future hold Magnesium Hydroxide (Milk Of Mag) 30 ml DAILY PRN PO CONSTIPATION; Start 03/09 at 09:00; Status Future hold Diagnostic Test (Pha) (Accu-Chek) 1 ea 02 XX Last administered on 03/20/17 02 :14; Admin Dose 1 EA; Start 03/10/17 at 02:00; Status Future hold Heparin Sodium (Porcine) (Heparin (5000 Units/0.5 ml)) 5,000 unit Q12 SC Last administered on 03/10/17 08:49; Admin Dose 5,000 UNIT; Start 03/09/17 at 21: 00; Status Future Hold Clonidine (Catapres) 0.1 mg Q6H PRN PO ELEVATED SYSTOLIC BP Last administered on 03/10/17 18:49; Admin Dose 0.1 MG; Start 03/09/17 at 20:30; Status Future hold Multivitamins/ Minerals (Theragran-M) 1 tab DAILY PO Last administered on 03/23 08:25; Admin Dose 1 TAB; Start 03/11/17 at 09:00; Status Future hold Ascorbic Acid (Vitamin C) 500 mg BID PO Last administered on 03/23/17 08:25; Admin Dose 500 MG; Start 03/10/17 at 21:00; Status Future hold Zinc Sulfate (Zinc Sulfate) 220 mg DAILY PO Last administered on 03/23/17 08: 25; Admin Dose 220 MG; Start 03/11/17 at 09:00; Status Future hold Miscellaneous Information 1 ea NOTE XX ; Start 03/10/17 at 16:30; Status Future hold Glucose (Glutose) 15 gm Q15M PRN PO DECREASED GLUCOSE; Start 03/10/17 at 16:30 ; Status Future hold Glucose (Glutose) 22.5 gm Q15M PRN PO DECREASED GLUCOSE; Start 03/10/17 at 16: 30; Status Future hold Dextrose (D50w Syringe) 25 ml Q15M PRN IV DECREASED GLUCOSE; Start 03/10/17 at 16:30; Status Future hold Dextrose (D50w Syringe) 50 ml Q15M PRN IV DECREASED GLUCOSE; Start 03/10/17 at 16:30; Status Future hold Glucagon (Glucagen) 1 mg Q15M PRN IM DECREASED GLUCOSE; Start 03/10/17 at 16: 30; Status Future hold Glucose (Glutose) 15 gm Q15M PRN BUCCAL DECREASED GLUCOSE; Start 03/10/17 at 16:30; Status Future hold Hydralazine HCl (Apresoline) 10 mg Q6H PRN IV ELEVATED BLOOD PRESSURE Last administered on 03/22/17 12:55; Admin Dose 10 MG; Start 03/10/17 at 18:00; Status Future hold Thiamine HCl (Vitamin B1) 100 mg DAILY PO Last administered on 03/23/17 08:25 ; Admin Dose 100 MG; Start 03/12/17 at 09:00; Status Future hold Folic Acid (Folic Acid) 1 mg DAILY PO Last administered on 03/23/17 08:25; Admin Dose 1 MG; Start 03/12/17 at 09:00; Status Future hold Labetalol HCl (Labetalol) 10 mg Q4H PRN IV SBP >160, HR>100 Last administered on 03/11/17 15:13; Admin Dose 10 MG; Start 03/11/17 at 14:30; Status Future hold Aspirin (Ecotrin) 325 mg BID PO Last administered on 03/23/17 08:25; Admin Dose 325 MG; Start 03/14/17 at 09:00 Pantoprazole (Protonix Tab) 40 mg DAILY@06 PO Last administered on 03/23/17 06:21; Admin Dose 40 MG; Start 03/14/17 at 06:00 Docusate Sodium/ Ferrous Fumarate (Smith-Sequels) 1 tab BID PO Last administered on 03/23/17 08:25; Admin Dose 1 TAB; Start 03/14/17 at 09:00 Simethicone (Mylicon) 80 mg TID PRN PO DISTENSION/GAS/BLOATING; Start at 14:00 Senna/Docusate Sodium (Senokot-S) 2 tab BID PRN PO CONSTIPATION; Start at 14:00 Magnesium Hydroxide (Milk Of Mag) 30 ml HS PRN PO CONSTIPATION; Start at 14:00 Bisacodyl (Dulcolax Supp) 10 mg DAILY PRN [place] CONSTIPATION; Start 03/13/17 at 14:00 Sodium Biphosphate/ Sodium Phosphate (Fleet Enema) 133 ml DAILY PRN [place] CONSTIPATION; Start 03/13/17 at 14:00 Diphenhydramine HCl (Benadryl) 25 mg Q4H PRN IM ITCHING OR RASH; Start at 14:00 Naloxone HCl (Narcan) 0.2 mg Q2M PRN IV DECREASED REPIRATORY RATE; Start at 14:00 Amlodipine Besylate (Norvasc) 10 mg DAILY PO Last administered on 03/23/17 08 :27; Admin Dose 10 MG; Start 03/19/17 at 09:00 Insulin Glargine (Lantus) 10 unit DAILY@20 SC Last administered on 03/22/17 20:10; Admin Dose 10 UNIT; Start 03/18/17 at 20:00 Lorazepam (Ativan) 1 mg Q4 PRN PO ANXIETY Last administered on 03/22/17 18:19 ; Admin Dose 1 MG; Start 03/18/17 at 22:30 Lisinopril (Zestril) 20 mg DAILY PO Last administered on 03/23/17 08:27; Admin Dose 20 MG; Start 03/20/17 at 09:00 Nitroglycerin (Nitroglycerin (Sl Tab) 0.4 Mg) 1 tab Q5M PRN SL ANGINA Last administered on 03/22/17 07:56; Admin Dose 1 TAB; Start 03/22/17 at 08:00 Morphine Sulfate (morphine) 2 mg PRN PRN IV IF SL NTG NOT EFFECTIVE; Start at 08:00 Metoprolol Tartrate (Lopressor) 50 mg BID PO Last administered on 03/23/17 08 :26; Admin Dose 50 MG; Start 03/22/17 at 21:00 FIORDALIZA CANTU Mar 23, 2017 12:12
[2017-03-23 14:00] VITALS: BP 140/74; PULSE 84; RESP 17
[2017-03-23 19:35] VITALS: BP 159/79; RESP 20
[2017-03-23] MEDS: INSULIN GLARGINE [LANtus] 3 ML PEN SC SCH (20:23)
[2017-03-24] MEDS: HYDROCODONE/APAP (5/325) TAB PO PRN (01:15)
[2017-03-24] MEDS: ACCU-CHEK XX SCH (01:26)
[2017-03-24 02:38] VITALS: BP 136/63; RESP 18
[2017-03-24 05:43] LABS: BASOPHIL # 0.1 10^3/ul (0.0-0.1); BASOPHILS % 0.7 % (0.0-2.0); EOSINOPHILS # 0.2 10^3/ul (0.0-0.5); EOSINOPHILS % 1.9 % (0.0-7.0); HEMOGLOBIN 10.1 g/dl (14.0-18.0); LYMPHOCYTES # 1.5 10^3/ul (0.8-2.9); LYMPHOCYTES % 17.2 % (15.0-51.0); MEAN CORPUSCULAR HEMOGLOBIN 30.7 pg (29.0-33.0); MEAN CORPUSCULAR HGB CONC 32.6 g/dl (32.0-37.0); MEAN CORPUSCULAR VOLUME 94.2 fl (82.0-101.0); MEAN PLATELET VOLUME 10.1 fl (7.4-10.4); MONOCYTE # 0.8 10^3/ul (0.3-0.9); MONOCYTES % 8.5 % (0.0-11.0); NEUTROPHIL # 6.3 10^3/ul (1.6-7.5); NEUTROPHILS % 71.2 % (39.0-77.0); PLATELET COUNT 460 10^3/UL (140-415); RED BLOOD COUNT 3.29 10^6/ul (4.70-6.10); WHITE BLOOD COUNT 8.9 10^3/ul (4.8-10.8)
[2017-03-24] MEDS: PANTOPRAZOLE (EC) 40 MG TAB PO SCH (06:01)
[2017-03-24 06:09] LABS: CALCIUM 9.5 mg/dl (8.4-10.2); CREATININE 1.37 mg/dl (0.61-1.24); MAGNESIUM 1.8 mg/dl (1.7-2.5)
[2017-03-24 07:00] VITALS: BP 128/60; RESP 18
[2017-03-24] MEDS: Insulin NOVOLOG SS MILD Algorithm (SS with meals and bedtime) SC SCH ×4 (07:20→20:19)
[2017-03-24 08:00] VITALS: BP 128/60; PULSE 82
[2017-03-24] MEDS: THIAMINE 100 MG TAB PO SCH (08:23)
[2017-03-24] MEDS: ASPIRIN (EC) 325 MG TAB PO SCH ×2 (08:23→20:19)
[2017-03-24] MEDS: ZINC SULFATE 220 MG CAP PO SCH (08:23)
[2017-03-24] MEDS: ASCORBIC ACID 500 MG TAB PO SCH ×2 (08:23→20:19)
[2017-03-24] MEDS: AMLODIPINE 5 MG TAB PO SCH (08:23)
[2017-03-24] MEDS: MULTIVITAMINS/MINERALS TAB PO SCH (08:23)
[2017-03-24] MEDS: FERROUS FUMARATE (SR) TAB PO SCH ×2 (08:23→20:20)
[2017-03-24] MEDS: FOLIC ACID 1 MG TAB PO SCH (08:23)
[2017-03-24] MEDS: LISINOPRIL 10 MG TAB PO SCH (08:24)
[2017-03-24] MEDS: METOPROLOL 25 MG TAB PO SCH ×2 (08:24→20:20)
[2017-03-24] MEDS: ACETAMINOPHEN 325 MG TAB PO PRN ×2 (10:44→17:35)
--- NOTE | 2017-03-24 11:08 | PN ---
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 o: Constitutional: sitting in chair, alert and oriented Head: atraumatic, normocephalic Eyes: EOMI, PERRL Neck: non-tender, supple Respiratory: clear to auscultation, diminished breath sounds bases, No crackles /rales, No wheezing Cardiovascular: Regular rate and rhythm, No murmurs Gastrointestinal: bowel sounds, non-tender, soft, No distended, No rebound or guarding Musculoskeletal: dressing left hip clean and dry. 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 Acute left femoral neck fracture s/p left hip hemiarthroplasty - Ortho consulted and recommendations appreciated. Continue aspirin for DVT ppx and OOB with PT. - Consult placed to for Rehab evaluation vs with PT. pending ARU acceptance - Pain control #encephalopathy -episodes of confusion -confirmed with daughter of alcohol consumption, who lives with patient. States only twice a week. unlikely DT. -improving daily, mostly not confused at this time, likely librium washout #. KIT on ?ckd - IVF -appears to be at baseline, very mild elevation #. Hyponatremia- resolved - Most likely secondary to dehydration - Will continue to monitor . #Diabetes Mellitus, well controlled -A1c 6.1 - hold home PO medications - ISS and accuchecks #. Anemia - stable #. HTN - stable - on norvasc and lisinopril - adjust as needed #. ETOH abuse - Per daughter, patient does not drink daily but when he does its heavily - Ativan PRN, dose decreased due to excess fatigue - Librium tapered off - no signs of DTs #. leukocytosis - will monitor -stable #. Tachycardia-- improving - Patient HR better controlled since pain control affective - ECHO shows stage 1 diastolic dysfunction with EF 55% #. Disposition -DC to rehab - Continue current treatment - monitor confusion, librium likely original cause of confusion, daily improvement with confusion. Problems: Exam/Review of Systems Vital Signs Vitals Vital Signs Date Time Temp Pulse Resp B/P Pulse Ox O2 Delivery O2 Flow Rate FiO2 03/24/17 08:00 97.8 82 128/60 100 Room Air 03/24/17 07:00 18 Intake and Output 03/23/17 03/23/17 03/24/17 15:00 23:00 07:00 Intake Total 460 ml 1100 ml 540 ml Output Total 1300 ml 200 ml Balance 460 ml -200 ml 340 ml Results Result Diagram: 03/24/177 03/24/17 0437 Results 24 hrs Laboratory Tests Test 03/23/17 12:50 03/23/17 17:41 03/23/17 20:07 03/24/17 04:37 Bedside Glucose 141 242 H 179 White Blood Count 8.9 Red Blood Count 3.29 L Hemoglobin 10.1 L Hematocrit 31.0 L Mean Corpuscular Volume 94.2 Mean Corpuscular Hemoglobin 30.7 Mean Corpuscular Hemoglobin Concent 32.6 Red Cell Distribution Width 13.0 Platelet Count 460 #H Mean Platelet Volume 10.1 Neutrophils % 71.2 Lymphocytes % 17.2 Monocytes % 8.5 Eosinophils % 1.9 Basophils % 0.7 Nucleated Red Blood Cells % 0.0 Neutrophils # 6.3 Lymphocytes # 1.5 Monocytes # 0.8 Eosinophils # 0.2 Basophils # 0.1 Nucleated Red Blood Cells # 0.0 Sodium Level 142 Potassium Level 4.0 Chloride Level 103 Carbon Dioxide Level 30 Anion Gap 13 Blood Urea Nitrogen 24 H Creatinine 1.37 H Glucose Level 148 # Calcium Level 9.5 Phosphorus Level 4.0 Magnesium Level 1.8 Test 03/24/17 07:46 03/24/17 08:22 Bedside Glucose 126 139 Medications Medications Current Medications Ondansetron HCl (Zofran Inj) 4 mg Q6H PRN IV NAUSEA AND/OR VOMITING Last administered on 03/22/17t 12:55; Admin Dose 4 MG; Start 03/09/17 at 09:00; Status Future hold Acetaminophen (Tylenol Tab) 650 mg Q6H PRN PO PAIN LEVEL 1-3 OR FEVER Last administered on 03/24/17 10:44; Admin Dose 650 MG; Start 03/09/17 at 09:00; Status Future hold Acetaminophen/ Hydrocodone Bitart ([place] (5/325)) 1 tab Q6H PRN PO MODERATE PAIN LEVEL 4-6 Last administered on 03/24/17 01:15; Admin Dose 1 TAB; Start 03/09/17 at 09:00; Status Future hold Morphine Sulfate (morphine) 2 mg Q4H PRN IV SEVERE PAIN LEVEL 7-10 Last administered on 03/13/17 08:36; Admin Dose 2 MG; Start 03/09/17 at 09:00; Status Future hold Docusate Sodium (Colace) 100 mg Q12H PRN PO CONSTIPATION; Start 03/09/17 at 09 :00; Status Future hold Magnesium Hydroxide (Milk Of Mag) 30 ml DAILY PRN PO CONSTIPATION; Start 03/09 at 09:00; Status Future hold Diagnostic Test (Pha) (Accu-Chek) 1 ea 02 XX Last administered on 03/20/17 02 :14; Admin Dose 1 EA; Start 03/10/17 at 02:00; Status Future hold Heparin Sodium (Porcine) (Heparin (5000 Units/0.5 ml)) 5,000 unit Q12 SC Last administered on 03/10/17 08:49; Admin Dose 5,000 UNIT; Start 03/09/17 at 21: 00; Status Future Hold Clonidine (Catapres) 0.1 mg Q6H PRN PO ELEVATED SYSTOLIC BP Last administered on 03/10/17 18:49; Admin Dose 0.1 MG; Start 03/09/17 at 20:30; Status Future hold Multivitamins/ Minerals (Theragran-M) 1 tab DAILY PO Last administered on 03/24 08:23; Admin Dose 1 TAB; Start 03/11/17 at 09:00; Status Future hold Ascorbic Acid (Vitamin C) 500 mg BID PO Last administered on 03/24/17 08:23; Admin Dose 500 MG; Start 03/10/17 at 21:00; Status Future hold Zinc Sulfate (Zinc Sulfate) 220 mg DAILY PO Last administered on 03/24/17 08: 23; Admin Dose 220 MG; Start 03/11/17 at 09:00; Status Future hold Miscellaneous Information 1 ea NOTE XX ; Start 03/10/17 at 16:30; Status Future hold Glucose (Glutose) 15 gm Q15M PRN PO DECREASED GLUCOSE; Start 03/10/17 at 16:30 ; Status Future hold Glucose (Glutose) 22.5 gm Q15M PRN PO DECREASED GLUCOSE; Start 03/10/17 at 16: 30; Status Future hold Dextrose (D50w Syringe) 25 ml Q15M PRN IV DECREASED GLUCOSE; Start 03/10/17 at 16:30; Status Future hold Dextrose (D50w Syringe) 50 ml Q15M PRN IV DECREASED GLUCOSE; Start 03/10/17 at 16:30; Status Future hold Glucagon (Glucagen) 1 mg Q15M PRN IM DECREASED GLUCOSE; Start 03/10/17 at 16: 30; Status Future hold Glucose (Glutose) 15 gm Q15M PRN BUCCAL DECREASED GLUCOSE; Start 03/10/17 at 16:30; Status Future hold Hydralazine HCl (Apresoline) 10 mg Q6H PRN IV ELEVATED BLOOD PRESSURE Last administered on 03/22/17 12:55; Admin Dose 10 MG; Start 03/10/17 at 18:00; Status Future hold Thiamine HCl (Vitamin B1) 100 mg DAILY PO Last administered on 03/24/17 08:23 ; Admin Dose 100 MG; Start 03/12/17 at 09:00; Status Future hold Folic Acid (Folic Acid) 1 mg DAILY PO Last administered on 03/24/17 08:23; Admin Dose 1 MG; Start 03/12/17 at 09:00; Status Future hold Labetalol HCl (Labetalol) 10 mg Q4H PRN IV SBP >160, HR>100 Last administered on 03/11/17 15:13; Admin Dose 10 MG; Start 03/11/17 at 14:30; Status Future hold Aspirin (Ecotrin) 325 mg BID PO Last administered on 03/24/17 08:23; Admin Dose 325 MG; Start 03/14/17 at 09:00 Pantoprazole (Protonix Tab) 40 mg DAILY@06 PO Last administered on 03/24/17 06:01; Admin Dose 40 MG; Start 03/14/17 at 06:00 Docusate Sodium/ Ferrous Fumarate (Smith-Sequels) 1 tab BID PO Last administered on 03/24/17 08:23; Admin Dose 1 TAB; Start 03/14/17 at 09:00 Simethicone (Mylicon) 80 mg TID PRN PO DISTENSION/GAS/BLOATING; Start at 14:00 Senna/Docusate Sodium (Senokot-S) 2 tab BID PRN PO CONSTIPATION; Start at 14:00 Magnesium Hydroxide (Milk Of Mag) 30 ml HS PRN PO CONSTIPATION; Start at 14:00 Bisacodyl (Dulcolax Supp) 10 mg DAILY PRN [place] CONSTIPATION; Start 03/13/17 at 14:00 Sodium Biphosphate/ Sodium Phosphate (Fleet Enema) 133 ml DAILY PRN [place] CONSTIPATION; Start 03/13/17 at 14:00 Diphenhydramine HCl (Benadryl) 25 mg Q4H PRN IM ITCHING OR RASH; Start at 14:00 Naloxone HCl (Narcan) 0.2 mg Q2M PRN IV DECREASED REPIRATORY RATE; Start at 14:00 Amlodipine Besylate (Norvasc) 10 mg DAILY PO Last administered on 03/24/17 08 :23; Admin Dose 10 MG; Start 03/19/17 at 09:00 Insulin Glargine (Lantus) 10 unit DAILY@20 SC Last administered on 03/23/17 20:23; Admin Dose 10 UNIT; Start 03/18/17 at 20:00 Lorazepam (Ativan) 1 mg Q4 PRN PO ANXIETY Last administered on 03/22/17 18:19 ; Admin Dose 1 MG; Start 03/18/17 at 22:30 Lisinopril (Zestril) 20 mg DAILY PO Last administered on 03/24/17 08:24; Admin Dose 20 MG; Start 03/20/17 at 09:00 Nitroglycerin (Nitroglycerin (Sl Tab) 0.4 Mg) 1 tab Q5M PRN SL ANGINA Last administered on 03/22/17 07:56; Admin Dose 1 TAB; Start 03/22/17 at 08:00 Morphine Sulfate (morphine) 2 mg PRN PRN IV IF SL NTG NOT EFFECTIVE; Start at 08:00 Metoprolol Tartrate (Lopressor) 50 mg BID PO Last administered on 03/24/17t 08 :24; Admin Dose 50 MG; Start 03/22/17 at 21:00 FIORDALIZA CANTU Mar 24, 2017 11:08
[2017-03-24 14:00] VITALS: BP 124/58; RESP 18
[2017-03-24] MEDS: MAGNESIUM HYDROXIDE 30ML CUP PO PRN (17:59)
[2017-03-24 19:42] VITALS: BP 146/64; RESP 19
[2017-03-24] MEDS: LORAZEPAM 1 MG TAB PO PRN (20:20)
[2017-03-24] MEDS: INSULIN GLARGINE [LANtus] 3 ML PEN SC SCH (20:22)
[2017-03-25] MEDS: ACCU-CHEK XX SCH (00:46)
[2017-03-25 02:11] VITALS: BP 147/68; RESP 18
[2017-03-25] MEDS: HYDROCODONE/APAP (5/325) TAB PO PRN ×3 (03:09→23:53)
[2017-03-25 05:04] LABS: BASOPHIL # 0.1 10^3/ul (0.0-0.1); BASOPHILS % 0.9 % (0.0-2.0); EOSINOPHILS # 0.2 10^3/ul (0.0-0.5); EOSINOPHILS % 2.1 % (0.0-7.0); HEMATOCRIT 31.1 % (42.0-52.0); HEMOGLOBIN 10.1 g/dl (14.0-18.0); LYMPHOCYTES # 1.5 10^3/ul (0.8-2.9); MEAN CORPUSCULAR HEMOGLOBIN 30.2 pg (29.0-33.0); MEAN CORPUSCULAR HGB CONC 32.5 g/dl (32.0-37.0); MEAN CORPUSCULAR VOLUME 93.1 fl (82.0-101.0); MEAN PLATELET VOLUME 9.6 fl (7.4-10.4); MONOCYTE # 0.8 10^3/ul (0.3-0.9); MONOCYTES % 10.2 % (0.0-11.0); NEUTROPHIL # 5.5 10^3/ul (1.6-7.5); NEUTROPHILS % 67.6 % (39.0-77.0); PLATELET COUNT 433 10^3/UL (140-415); RED BLOOD COUNT 3.34 10^6/ul (4.70-6.10); RED CELL DISTRIBUTION WIDTH 12.7 % (11.5-14.5); WHITE BLOOD COUNT 8.1 10^3/ul (4.8-10.8)
[2017-03-25 05:17] LABS: CALCIUM 9.1 mg/dl (8.4-10.2); CREATININE 1.34 mg/dl (0.61-1.24); PHOSPHORUS 4.1 mg/dl (2.5-4.9); POTASSIUM 3.8 mmol/L (3.5-5.1)
[2017-03-25] MEDS: PANTOPRAZOLE (EC) 40 MG TAB PO SCH (06:00)
[2017-03-25 07:00] VITALS: BP 119/63; RESP 18
[2017-03-25] MEDS: Insulin NOVOLOG SS MILD Algorithm (SS with meals and bedtime) SC SCH ×4 (07:20→21:00)
[2017-03-25] MEDS: ASCORBIC ACID 500 MG TAB PO SCH ×2 (08:49→20:58)
[2017-03-25] MEDS: AMLODIPINE 5 MG TAB PO SCH (08:49)
[2017-03-25] MEDS: THIAMINE 100 MG TAB PO SCH (08:49)
[2017-03-25] MEDS: FOLIC ACID 1 MG TAB PO SCH (08:49)
[2017-03-25] MEDS: FERROUS FUMARATE (SR) TAB PO SCH ×2 (08:49→20:58)
[2017-03-25] MEDS: MULTIVITAMINS/MINERALS TAB PO SCH (08:50)
[2017-03-25] MEDS: ZINC SULFATE 220 MG CAP PO SCH (08:50)
[2017-03-25] MEDS: METOPROLOL 25 MG TAB PO SCH ×2 (08:50→20:58)
[2017-03-25] MEDS: ASPIRIN (EC) 325 MG TAB PO SCH ×2 (08:50→20:57)
[2017-03-25] MEDS: LISINOPRIL 10 MG TAB PO SCH (08:50)
[2017-03-25] MEDS: MAGNESIUM HYDROXIDE 30ML CUP PO PRN (10:22)
--- NOTE | 2017-03-25 10:28 | PN ---
Date/Time of Note Date/Time of Note DATE: 03/25/17 TIME: 10:28 Assessment/Plan VTE Prophylaxis VTE Prophylaxis Intervention: SCD's Lines/Catheters IV Catheter Type (from Nrsg): Saline Lock Urinary Cath still in place: No Assessment/Plan Assessment/Plan 1. Acute left femoral neck fracture s/p left hip hemiarthroplasty - Ortho consulted and recommendations appreciated. Continue aspirin for DVT ppx and OOB with PT. - Consult placed to for Rehab evaluation vs HH with PT. Pending placement - Pain control 2. Acute encephalopathy -episodes of confusion -confirmed with daughter of alcohol consumption, who lives with patient. States only twice a week. unlikely DT. -improving daily and no signs of confusion 3. KIT- improving - very mild elevation 4. Hyponatremia- resolved - Most likely secondary to dehydration - Will continue to monitor 5. Diabetes Mellitus, well controlled -A1c 6.1 - hold home PO medications - ISS and accuchecks 6. Anemia - stable 7. HTN - stable - on norvasc and lisinopril - adjust as needed 8. ETOH abuse - Per daughter, patient does not drink daily but when he does its heavily - Ativan PRN, dose decreased due to excess fatigue - Completed Librium taper - no signs of DTs 9. leukocytosis- resolved - will monitor 10. Tachycardia- resolved - Patient HR better controlled since pain control affective - ECHO shows stage 1 diastolic dysfunction with EF 55% 11. Disposition - awaiting placement to ARU Subjective 24 Hr Interval Summary Free Text/Dictation Patient sitting in chair at bedside. sitter in room. Patient doing okay and no new complaints. Denies any pain in hip and ambulating well with physical therapy. No acute overnight events. Exam/Review of Systems Vital Signs Vitals Vital Signs Date Time Temp Pulse Resp B/P Pulse Ox O2 Delivery O2 Flow Rate FiO2 03/25/17 07:00 98.1 81 18 119/63 100 03/24/17 08:00 Room Air Intake and Output 03/24/17 03/24/17 03/25/17 15:00 23:00 07:00 Intake Total 1920 ml 720 ml Output Total 2400 ml 1000 ml Balance -480 ml -280 ml Exam Constitutional: sitting in chair, alert and oriented Head: atraumatic, normocephalic Neck: non-tender, supple Respiratory: clear to auscultation, diminished breath sounds bases, No crackles /rales, No wheezing Cardiovascular: Regular rate and rhythm, No murmurs Gastrointestinal: bowel sounds, non-tender, soft, No distended, No rebound or guarding Musculoskeletal: dressing left hip clean and dry. no discharge or drainage Extremities: No cyanosis, No edema, No pitting pedal edema Results Result Diagram: 03/25/17 0444 03/25/17 0444 Results 24 hrs Laboratory Tests Test 03/24/17 12:28 03/24/17 17:33 03/24/17 20:17 03/25/17 04:44 Bedside Glucose 169 268 H 123 White Blood Count 8.1 Red Blood Count 3.34 L Hemoglobin 10.1 L Hematocrit 31.1 L Mean Corpuscular Volume 93.1 Mean Corpuscular Hemoglobin 30.2 Mean Corpuscular Hemoglobin Concent 32.5 Red Cell Distribution Width 12.7 Platelet Count 433 H Mean Platelet Volume 9.6 Neutrophils % 67.6 Lymphocytes % 19.0 Monocytes % 10.2 Eosinophils % 2.1 Basophils % 0.9 Nucleated Red Blood Cells % 0.0 Neutrophils # 5.5 Lymphocytes # 1.5 Monocytes # 0.8 Eosinophils # 0.2 Basophils # 0.1 Nucleated Red Blood Cells # 0.0 Sodium Level 141 Potassium Level 3.8 Chloride Level 101 Carbon Dioxide Level 30 Anion Gap 14 Blood Urea Nitrogen 26 H Creatinine 1.34 H Glucose Level 83 # Calcium Level 9.1 Phosphorus Level 4.1 Magnesium Level 2.0 Test 03/25/17 08:48 Bedside Glucose 80 Medications Medications Current Medications Ondansetron HCl (Zofran Inj) 4 mg Q6H PRN IV NAUSEA AND/OR VOMITING Last administered on 03/22/17 12:55; Admin Dose 4 MG; Start 03/09/17 at 09:00; Status Future hold Acetaminophen (Tylenol Tab) 650 mg Q6H PRN PO PAIN LEVEL 1-3 OR FEVER Last administered on 03/24/17 17:35; Admin Dose 650 MG; Start 03/09/17 at 09:00; Status Future hold Acetaminophen/ Hydrocodone Bitart ([place] (5/325)) 1 tab Q6H PRN PO MODERATE PAIN LEVEL 4-6 Last administered on 03/25/17 03:09; Admin Dose 1 TAB; Start 03/09/17 at 09:00; Status Future hold Morphine Sulfate (morphine) 2 mg Q4H PRN IV SEVERE PAIN LEVEL 7-10 Last administered on 03/13/17 08:36; Admin Dose 2 MG; Start 03/09/17 at 09:00; Status Future hold Docusate Sodium (Colace) 100 mg Q12H PRN PO CONSTIPATION; Start 03/09/17 at 09 :00; Status Future hold Magnesium Hydroxide (Milk Of Mag) 30 ml DAILY PRN PO CONSTIPATION Last administered on 03/25/17 10:22; Admin Dose 30 ML; Start 03/09/17 at 09:00; Status Future hold Diagnostic Test (Pha) (Accu-Chek) 1 ea 02 XX Last administered on 03/20/17 02 :14; Admin Dose 1 EA; Start 03/10/17 at 02:00; Status Future hold Heparin Sodium (Porcine) (Heparin (5000 Units/0.5 ml)) 5,000 unit Q12 SC Last administered on 03/10/17 08:49; Admin Dose 5,000 UNIT; Start 03/09/17 at 21: 00; Status Future Hold Clonidine (Catapres) 0.1 mg Q6H PRN PO ELEVATED SYSTOLIC BP Last administered on 03/10/17 18:49; Admin Dose 0.1 MG; Start 03/09/17 at 20:30; Status Future hold Multivitamins/ Minerals (Theragran-M) 1 tab DAILY PO Last administered on 03/25 08:50; Admin Dose 1 TAB; Start 03/11/17 at 09:00; Status Future hold Ascorbic Acid (Vitamin C) 500 mg BID PO Last administered on 03/25/17 08:49; Admin Dose 500 MG; Start 03/10/17 at 21:00; Status Future hold Zinc Sulfate (Zinc Sulfate) 220 mg DAILY PO Last administered on 03/25/17 08: 50; Admin Dose 220 MG; Start 03/11/17 at 09:00; Status Future hold Miscellaneous Information 1 ea NOTE XX ; Start 03/10/17 at 16:30; Status Future hold Glucose (Glutose) 15 gm Q15M PRN PO DECREASED GLUCOSE; Start 03/10/17 at 16:30 ; Status Future hold Glucose (Glutose) 22.5 gm Q15M PRN PO DECREASED GLUCOSE; Start 03/10/17 at 16: 30; Status Future hold Dextrose (D50w Syringe) 25 ml Q15M PRN IV DECREASED GLUCOSE; Start 03/10/17 at 16:30; Status Future hold Dextrose (D50w Syringe) 50 ml Q15M PRN IV DECREASED GLUCOSE; Start 03/10/17 at 16:30; Status Future hold Glucagon (Glucagen) 1 mg Q15M PRN IM DECREASED GLUCOSE; Start 03/10/17 at 16: 30; Status Future hold Glucose (Glutose) 15 gm Q15M PRN BUCCAL DECREASED GLUCOSE; Start 03/10/17 at 16:30; Status Future hold Hydralazine HCl (Apresoline) 10 mg Q6H PRN IV ELEVATED BLOOD PRESSURE Last administered on 03/22/17 12:55; Admin Dose 10 MG; Start 03/10/17 at 18:00; Status Future hold Thiamine HCl (Vitamin B1) 100 mg DAILY PO Last administered on 03/25/17 08:49 ; Admin Dose 100 MG; Start 03/12/17 at 09:00; Status Future hold Folic Acid (Folic Acid) 1 mg DAILY PO Last administered on 03/25/17 08:49; Admin Dose 1 MG; Start 03/12/17 at 09:00; Status Future hold Labetalol HCl (Labetalol) 10 mg Q4H PRN IV SBP >160, HR>100 Last administered on 03/11/17 15:13; Admin Dose 10 MG; Start 03/11/17 at 14:30; Status Future hold Aspirin (Ecotrin) 325 mg BID PO Last administered on 03/25/17 08:50; Admin Dose 325 MG; Start 03/14/17 at 09:00 Pantoprazole (Protonix Tab) 40 mg DAILY@06 PO Last administered on 03/24/17 06:01; Admin Dose 40 MG; Start 03/14/17 at 06:00 Docusate Sodium/ Ferrous Fumarate (Smith-Sequels) 1 tab BID PO Last administered on 03/25/17 08:49; Admin Dose 1 TAB; Start 03/14/17 at 09:00 Simethicone (Mylicon) 80 mg TID PRN PO DISTENSION/GAS/BLOATING; Start at 14:00 Senna/Docusate Sodium (Senokot-S) 2 tab BID PRN PO CONSTIPATION; Start at 14:00 Magnesium Hydroxide (Milk Of Mag) 30 ml HS PRN PO CONSTIPATION; Start at 14:00 Bisacodyl (Dulcolax Supp) 10 mg DAILY PRN [place] CONSTIPATION; Start 03/13/17 at 14:00 Sodium Biphosphate/ Sodium Phosphate (Fleet Enema) 133 ml DAILY PRN [place] CONSTIPATION; Start 03/13/17 at 14:00 Diphenhydramine HCl (Benadryl) 25 mg Q4H PRN IM ITCHING OR RASH; Start at 14:00 Naloxone HCl (Narcan) 0.2 mg Q2M PRN IV DECREASED REPIRATORY RATE; Start at 14:00 Amlodipine Besylate (Norvasc) 10 mg DAILY PO Last administered on 03/25/17 08 :49; Admin Dose 10 MG; Start 03/19/17 at 09:00 Insulin Glargine (Lantus) 10 unit DAILY@20 SC Last administered on 03/24/17 20:22; Admin Dose 10 UNIT; Start 03/18/17 at 20:00 Lorazepam (Ativan) 1 mg Q4 PRN PO ANXIETY Last administered on 03/24/17 20:20 ; Admin Dose 1 MG; Start 03/18/17 at 22:30 Lisinopril (Zestril) 20 mg DAILY PO Last administered on 03/25/17 08:50; Admin Dose 20 MG; Start 03/20/17 at 09:00 Nitroglycerin (Nitroglycerin (Sl Tab) 0.4 Mg) 1 tab Q5M PRN SL ANGINA Last administered on 03/22/17 07:56; Admin Dose 1 TAB; Start 03/22/17 at 08:00 Morphine Sulfate (morphine) 2 mg PRN PRN IV IF SL NTG NOT EFFECTIVE; Start at 08:00 Metoprolol Tartrate (Lopressor) 50 mg BID PO Last administered on 03/25/17 08 :50; Admin Dose 50 MG; Start 03/22/17 at 21:00 KRISH SANTIAGO MD Mar 25, 2017 10:28
[2017-03-25 14:00] VITALS: BP 117/59; RESP 18
[2017-03-25] MEDS: ACETAMINOPHEN 325 MG TAB PO PRN (19:32)
[2017-03-25 19:36] VITALS: BP 140/63; RESP 20
[2017-03-25] MEDS: INSULIN GLARGINE [LANtus] 3 ML PEN SC SCH (21:00)
[2017-03-26 00:16] VITALS: BP 127/60; RESP 20
[2017-03-26] MEDS: ACCU-CHEK XX SCH (02:13)
[2017-03-26 06:28] LABS: ALBUMIN 3.7 g/dl (3.3-4.9); CALCIUM 9.4 mg/dl (8.4-10.2); CREATININE 1.33 mg/dl (0.61-1.24); MAGNESIUM 2.4 mg/dl (1.7-2.5); PHOSPHORUS 4.3 mg/dl (2.5-4.9); POTASSIUM 3.9 mmol/L (3.5-5.1)
[2017-03-26] MEDS: PANTOPRAZOLE (EC) 40 MG TAB PO SCH (06:35)
[2017-03-26] MEDS: Insulin NOVOLOG SS MILD Algorithm (SS with meals and bedtime) SC SCH ×4 (07:20→20:09)
[2017-03-26 07:53] VITALS: BP 135/56; RESP 17
[2017-03-26] MEDS: ASPIRIN (EC) 325 MG TAB PO SCH ×2 (08:48→20:03)
[2017-03-26] MEDS: ASCORBIC ACID 500 MG TAB PO SCH ×2 (08:48→20:03)
[2017-03-26] MEDS: FERROUS FUMARATE (SR) TAB PO SCH ×2 (08:48→20:03)
[2017-03-26] MEDS: MULTIVITAMINS/MINERALS TAB PO SCH (08:49)
[2017-03-26] MEDS: FOLIC ACID 1 MG TAB PO SCH (08:49)
[2017-03-26] MEDS: ZINC SULFATE 220 MG CAP PO SCH (08:49)
[2017-03-26] MEDS: LISINOPRIL 10 MG TAB PO SCH (08:49)
[2017-03-26] MEDS: AMLODIPINE 5 MG TAB PO SCH (08:50)
[2017-03-26] MEDS: METOPROLOL 25 MG TAB PO SCH ×2 (08:50→20:04)
[2017-03-26] MEDS: THIAMINE 100 MG TAB PO SCH (09:29)
[2017-03-26] MEDS: MAGNESIUM HYDROXIDE 30ML CUP PO PRN (10:52)
--- NOTE | 2017-03-26 10:56 | PN ---
Date/Time of Note Date/Time of Note DATE: 03/26/17 TIME: 10:56 Assessment/Plan VTE Prophylaxis VTE Prophylaxis Intervention: other Lines/Catheters IV Catheter Type (from Nrsg): Saline Lock Urinary Cath still in place: No Assessment/Plan Assessment/Plan 1. Acute left femoral neck fracture s/p left hip hemiarthroplasty - Ortho consulted and recommendations appreciated. Continue aspirin for DVT ppx and OOB with PT. - Patient doing well with ambulation and too high functioning for ARU. Will discharge home tomorrow with HH and PT - Pain control 2. Acute encephalopathy- improving -episodes of confusion -confirmed with daughter of alcohol consumption, who lives with patient. States only twice a week. unlikely DT. -improving daily and no signs of confusion 3. KIT- improving - very mild elevation 4. Hyponatremia- resolved - Most likely secondary to dehydration - Will continue to monitor 5. Diabetes Mellitus, well controlled - A1c 6.1 - hold home PO medications - ISS and accuchecks 6. Anemia - stable 7. HTN - stable - on norvasc and lisinopril - adjust as needed 8. ETOH abuse - Per daughter, patient does not drink daily but when he does its heavily - Ativan PRN, dose decreased due to excess fatigue - Completed Librium taper - no signs of DTs 9. leukocytosis- resolved - will monitor 10. Tachycardia- resolved - Patient HR better controlled since pain control affective - ECHO shows stage 1 diastolic dysfunction with EF 55% 11. Disposition - discharge home tomorrow with HH and PT Subjective 24 Hr Interval Summary Free Text/Dictation Patient doing well and c/o constipation, but per nursing has been experiencing regular BMs. Patient has no new complaints and no acute overnight events. Sitter d/c Exam/Review of Systems Vital Signs Vitals Vital Signs Date Time Temp Pulse Resp B/P Pulse Ox O2 Delivery O2 Flow Rate FiO2 03/26/17 07:53 98.5 85 17 135/56 94 03/24/17 08:00 Room Air Intake and Output 03/25/17 03/25/17 03/26/17 15:00 23:00 07:00 Intake Total 3340 ml 800 ml Output Total 1800 ml Balance 1540 ml 800 ml Exam Constitutional: sitting on side of bed, in no acute distress, alert and oriented Head: atraumatic, normocephalic Neck: non-tender, supple Respiratory: clear to auscultation, diminished breath sounds bases, No crackles /rales, No wheezing Cardiovascular: Regular rate and rhythm, No murmurs Gastrointestinal: bowel sounds, non-tender, soft, No distended, No rebound or guarding Musculoskeletal: incision clean and dry. no discharge or drainage. steristrips in place Extremities: No cyanosis, No edema, No pitting pedal edema Results Result Diagram: 03/25/17 0444 03/26/17 0449 Results 24 hrs Laboratory Tests Test 03/25/17 12:35 03/25/17 14:18 03/25/17 17:19 03/25/17 20:55 Bedside Glucose 138 145 148 245 H Test 03/26/17 02:11 03/26/17 04:49 03/26/17 08:34 Bedside Glucose 97 101 Sodium Level 143 Potassium Level 3.9 Chloride Level 103 Carbon Dioxide Level 29 Anion Gap 15 Blood Urea Nitrogen 27 H Creatinine 1.33 H Glucose Level 68 #L Calcium Level 9.4 Phosphorus Level 4.3 Magnesium Level 2.4 Albumin 3.7 Medications Medications Current Medications Ondansetron HCl (Zofran Inj) 4 mg Q6H PRN IV NAUSEA AND/OR VOMITING Last administered on 03/22/17 12:55; Admin Dose 4 MG; Start 03/09/17 at 09:00; Status Future hold Acetaminophen (Tylenol Tab) 650 mg Q6H PRN PO PAIN LEVEL 1-3 OR FEVER Last administered on 03/25/17 19:32; Admin Dose 650 MG; Start 03/09/17 at 09:00; Status Future hold Acetaminophen/ Hydrocodone Bitart ([place] (5/325)) 1 tab Q6H PRN PO MODERATE PAIN LEVEL 4-6 Last administered on 03/25/17 23:53; Admin Dose 1 TAB; Start 03/09/17 at 09:00; Status Future hold Morphine Sulfate (morphine) 2 mg Q4H PRN IV SEVERE PAIN LEVEL 7-10 Last administered on 03/13/17 08:36; Admin Dose 2 MG; Start 03/09/17 at 09:00; Status Future hold Docusate Sodium (Colace) 100 mg Q12H PRN PO CONSTIPATION; Start 03/09/17 at 09 :00; Status Future hold Magnesium Hydroxide (Milk Of Mag) 30 ml DAILY PRN PO CONSTIPATION Last administered on 03/26/17 10:52; Admin Dose 30 ML; Start 03/09/17 at 09:00; Status Future hold Diagnostic Test (Pha) (Accu-Chek) 1 ea 02 XX Last administered on 03/26/17 02 :13; Admin Dose 1 EA; Start 03/10/17 at 02:00; Status Future hold Heparin Sodium (Porcine) (Heparin (5000 Units/0.5 ml)) 5,000 unit Q12 SC Last administered on 03/10/17 08:49; Admin Dose 5,000 UNIT; Start 03/09/17 at 21: 00; Status Future Hold Clonidine (Catapres) 0.1 mg Q6H PRN PO ELEVATED SYSTOLIC BP Last administered on 03/10/17 18:49; Admin Dose 0.1 MG; Start 03/09/17 at 20:30; Status Future hold Multivitamins/ Minerals (Theragran-M) 1 tab DAILY PO Last administered on 03/26 08:49; Admin Dose 1 TAB; Start 03/11/17 at 09:00; Status Future hold Ascorbic Acid (Vitamin C) 500 mg BID PO Last administered on 03/26/17 08:48; Admin Dose 500 MG; Start 03/10/17 at 21:00; Status Future hold Zinc Sulfate (Zinc Sulfate) 220 mg DAILY PO Last administered on 03/26/17 08: 49; Admin Dose 220 MG; Start 03/11/17 at 09:00; Status Future hold Miscellaneous Information 1 ea NOTE XX ; Start 03/10/17 at 16:30; Status Future hold Glucose (Glutose) 15 gm Q15M PRN PO DECREASED GLUCOSE; Start 03/10/17 at 16:30 ; Status Future hold Glucose (Glutose) 22.5 gm Q15M PRN PO DECREASED GLUCOSE; Start 03/10/17 at 16: 30; Status Future hold Dextrose (D50w Syringe) 25 ml Q15M PRN IV DECREASED GLUCOSE; Start 03/10/17 at 16:30; Status Future hold Dextrose (D50w Syringe) 50 ml Q15M PRN IV DECREASED GLUCOSE; Start 03/10/17 at 16:30; Status Future hold Glucagon (Glucagen) 1 mg Q15M PRN IM DECREASED GLUCOSE; Start 03/10/17 at 16: 30; Status Future hold Glucose (Glutose) 15 gm Q15M PRN BUCCAL DECREASED GLUCOSE; Start 03/10/17 at 16:30; Status Future hold Hydralazine HCl (Apresoline) 10 mg Q6H PRN IV ELEVATED BLOOD PRESSURE Last administered on 03/22/17 12:55; Admin Dose 10 MG; Start 03/10/17 at 18:00; Status Future hold Thiamine HCl (Vitamin B1) 100 mg DAILY PO Last administered on 03/26/17 09:29 ; Admin Dose 100 MG; Start 03/12/17 at 09:00; Status Future hold Folic Acid (Folic Acid) 1 mg DAILY PO Last administered on 03/26/17 08:49; Admin Dose 1 MG; Start 03/12/17 at 09:00; Status Future hold Labetalol HCl (Labetalol) 10 mg Q4H PRN IV SBP >160, HR>100 Last administered on 03/11/17 15:13; Admin Dose 10 MG; Start 03/11/17 at 14:30; Status Future hold Aspirin (Ecotrin) 325 mg BID PO Last administered on 03/26/17 08:48; Admin Dose 325 MG; Start 03/14/17 at 09:00 Pantoprazole (Protonix Tab) 40 mg DAILY@06 PO Last administered on 03/26/17 06:35; Admin Dose 40 MG; Start 03/14/17 at 06:00 Docusate Sodium/ Ferrous Fumarate (Smith-Sequels) 1 tab BID PO Last administered on 03/26/17 08:48; Admin Dose 1 TAB; Start 03/14/17 at 09:00 Simethicone (Mylicon) 80 mg TID PRN PO DISTENSION/GAS/BLOATING; Start at 14:00 Senna/Docusate Sodium (Senokot-S) 2 tab BID PRN PO CONSTIPATION; Start at 14:00 Magnesium Hydroxide (Milk Of Mag) 30 ml HS PRN PO CONSTIPATION; Start at 14:00 Bisacodyl (Dulcolax Supp) 10 mg DAILY PRN [place] CONSTIPATION; Start 03/13/17 at 14:00 Sodium Biphosphate/ Sodium Phosphate (Fleet Enema) 133 ml DAILY PRN [place] CONSTIPATION; Start 03/13/17 at 14:00 Diphenhydramine HCl (Benadryl) 25 mg Q4H PRN IM ITCHING OR RASH; Start at 14:00 Naloxone HCl (Narcan) 0.2 mg Q2M PRN IV DECREASED REPIRATORY RATE; Start at 14:00 Amlodipine Besylate (Norvasc) 10 mg DAILY PO Last administered on 03/26/17 08 :50; Admin Dose 10 MG; Start 03/19/17 at 09:00 Insulin Glargine (Lantus) 10 unit DAILY@20 SC Last administered on 03/25/17 21:00; Admin Dose 10 UNIT; Start 03/18/17 at 20:00 Lorazepam (Ativan) 1 mg Q4 PRN PO ANXIETY Last administered on 03/24/17 20:20 ; Admin Dose 1 MG; Start 03/18/17 at 22:30 Lisinopril (Zestril) 20 mg DAILY PO Last administered on 03/26/17 08:49; Admin Dose 20 MG; Start 03/20/17 at 09:00 Nitroglycerin (Nitroglycerin (Sl Tab) 0.4 Mg) 1 tab Q5M PRN SL ANGINA Last administered on 03/22/17 07:56; Admin Dose 1 TAB; Start 03/22/17 at 08:00 Morphine Sulfate (morphine) 2 mg PRN PRN IV IF SL NTG NOT EFFECTIVE; Start at 08:00 Metoprolol Tartrate (Lopressor) 50 mg BID PO Last administered on 03/26/17 08 :50; Admin Dose 50 MG; Start 03/22/17 at 21:00 KRISH SANTIAGO MD Mar 26, 2017 10:56
[2017-03-26] MEDS: ACETAMINOPHEN 325 MG TAB PO PRN ×2 (11:46→16:58)
[2017-03-26 20:00] VITALS: BP 123/58; RESP 18
[2017-03-26] MEDS: HYDROCODONE/APAP (5/325) TAB PO PRN (20:05)
[2017-03-26] MEDS: INSULIN GLARGINE [LANtus] 3 ML PEN SC SCH (20:08)
[2017-03-27 02:00] VITALS: BP 127/60; RESP 19
[2017-03-27] MEDS: ACCU-CHEK XX SCH (02:10)
[2017-03-27] MEDS: PANTOPRAZOLE (EC) 40 MG TAB PO SCH (05:40)
[2017-03-27 06:16] LABS: ALBUMIN 3.7 g/dl (3.3-4.9); CALCIUM 9.2 mg/dl (8.4-10.2); CREATININE 1.65 mg/dl (0.61-1.24); MAGNESIUM 2.5 mg/dl (1.7-2.5); PHOSPHORUS 4.7 mg/dl (2.5-4.9); POTASSIUM 4.2 mmol/L (3.5-5.1)
[2017-03-27] MEDS: Insulin NOVOLOG SS MILD Algorithm (SS with meals and bedtime) SC SCH ×3 (07:20→17:25)
[2017-03-27 08:02] VITALS: BP 107/59; RESP 18
[2017-03-27] MEDS: THIAMINE 100 MG TAB PO SCH (08:56)
[2017-03-27] MEDS: MULTIVITAMINS/MINERALS TAB PO SCH (08:56)
[2017-03-27] MEDS: ZINC SULFATE 220 MG CAP PO SCH (08:56)
[2017-03-27] MEDS: FOLIC ACID 1 MG TAB PO SCH (08:56)
[2017-03-27] MEDS: ASCORBIC ACID 500 MG TAB PO SCH (08:56)
[2017-03-27] MEDS: FERROUS FUMARATE (SR) TAB PO SCH (08:56)
[2017-03-27] MEDS: ASPIRIN (EC) 325 MG TAB PO SCH (08:56)
[2017-03-27] MEDS: HYDROCODONE/APAP (5/325) TAB PO PRN ×3 (09:06→18:23)
[2017-03-27 10:10] VITALS: BP 131/62; PULSE 83
[2017-03-27] MEDS: AMLODIPINE 5 MG TAB PO SCH (10:13)
[2017-03-27] MEDS: METOPROLOL 25 MG TAB PO SCH (10:14)
[2017-03-27] MEDS: LISINOPRIL 10 MG TAB PO SCH (10:14)
--- NOTE | 2017-03-27 13:24 | PN ---
Date/Time of Note Date/Time of Note DATE: 03/27/17 TIME: 13:21 Assessment/Plan VTE Prophylaxis VTE Prophylaxis Intervention: SCD's Lines/Catheters IV Catheter Type (from Nrsg): Saline Lock Urinary Cath still in place: No Assessment/Plan Assessment/Plan 1. Acute left femoral neck fracture s/p left hip hemiarthroplasty - Ortho consulted and recommendations appreciated. Continue aspirin for DVT ppx for 1 month total and OOB with PT. - Patient doing well with ambulation and will discharge home with HH and PT - Pain control with Tylenol has been sufficient 2. Acute encephalopathy- improving -episodes of confusion -confirmed with daughter of alcohol consumption, who lives with patient. States only twice a week. unlikely DT. -improving daily and no signs of confusion 3. KIT- stable - encouraged hydration - will need following by PCP 4. Hyponatremia- resolved - Most likely secondary to dehydration - Will continue to monitor 5. Diabetes Mellitus, well controlled - A1c 6.1 - will d/c on PO medications. no need for continuation of insulin 6. Anemia - stable 7. HTN - stable - on norvasc and lisinopril - adjust as needed 8. ETOH abuse - Per daughter, patient does not drink daily but when he does its heavily - Ativan PRN, dose decreased due to excess fatigue - Completed Librium taper - no signs of DTs 9. leukocytosis- resolved - will monitor 10. Tachycardia- resolved - Patient HR better controlled since pain control affective - ECHO shows stage 1 diastolic dysfunction with EF 55% 11. Disposition - discharge home with HH and PT Subjective 24 Hr Interval Summary Free Text/Dictation Patient doing well and eager to go home. No acute issues and no new complaints. No overnight events. Exam/Review of Systems Vital Signs Vitals Vital Signs Date Time Temp Pulse Resp B/P Pulse Ox O2 Delivery O2 Flow Rate FiO2 03/27/17 10:10 83 131/62 03/27/17 08:02 98.3 18 97 03/24/17 08:00 Room Air Intake and Output 03/26/17 03/26/17 03/27/17 15:00 23:00 07:00 Intake Total 720 ml 460 ml Balance 720 ml 460 ml Exam Constitutional: sitting on side of bed, in no acute distress, alert and oriented Head: atraumatic, normocephalic Neck: non-tender, supple Respiratory: clear to auscultation, diminished breath sounds bases, No crackles /rales, No wheezing Cardiovascular: Regular rate and rhythm, No murmurs Gastrointestinal: bowel sounds, non-tender, soft, No distended, No rebound or guarding Musculoskeletal: incision clean and dry. no discharge or drainage. steristrips in place Extremities: No cyanosis, No edema, No pitting pedal edema Results Result Diagram: 03/25/17 0444 03/27/17 0505 Results 24 hrs Laboratory Tests Test 03/26/17 17:15 03/26/17 20:01 03/27/17 02:02 03/27/17 05:05 Bedside Glucose 143 217 95 Sodium Level 142 Potassium Level 4.2 Chloride Level 101 Carbon Dioxide Level 32 H Anion Gap 13 Blood Urea Nitrogen 27 H Creatinine 1.65 H Glucose Level 67 L Calcium Level 9.2 Phosphorus Level 4.7 Magnesium Level 2.5 Albumin 3.7 Test 03/27/17 08:03 03/27/17 12:47 Bedside Glucose 94 152 Medications Medications Current Medications Ondansetron HCl (Zofran Inj) 4 mg Q6H PRN IV NAUSEA AND/OR VOMITING Last administered on 03/22/17 12:55; Admin Dose 4 MG; Start 03/09/17 at 09:00; Status Future hold Acetaminophen (Tylenol Tab) 650 mg Q6H PRN PO PAIN LEVEL 1-3 OR FEVER Last administered on 03/26/17 16:58; Admin Dose 650 MG; Start 03/09/17 at 09:00; Status Future hold Acetaminophen/ Hydrocodone Bitart ([place] (5/325)) 1 tab Q6H PRN PO MODERATE PAIN LEVEL 4-6 Last administered on 03/27/17 09:06; Admin Dose 1 TAB; Start 03/09/17 at 09:00; Status Future hold Morphine Sulfate (morphine) 2 mg Q4H PRN IV SEVERE PAIN LEVEL 7-10 Last administered on 03/13/17 08:36; Admin Dose 2 MG; Start 03/09/17 at 09:00; Status Future hold Docusate Sodium (Colace) 100 mg Q12H PRN PO CONSTIPATION; Start 03/09/17 at 09 :00; Status Future hold Magnesium Hydroxide (Milk Of Mag) 30 ml DAILY PRN PO CONSTIPATION Last administered on 03/26/17 10:52; Admin Dose 30 ML; Start 03/09/17 at 09:00; Status Future hold Diagnostic Test (Pha) (Accu-Chek) 1 ea 02 XX Last administered on 03/27/17 02 :10; Admin Dose 1 EA; Start 03/10/17 at 02:00; Status Future hold Heparin Sodium (Porcine) (Heparin (5000 Units/0.5 ml)) 5,000 unit Q12 SC Last administered on 03/10/17 08:49; Admin Dose 5,000 UNIT; Start 03/09/17 at 21: 00; Status Future Hold Clonidine (Catapres) 0.1 mg Q6H PRN PO ELEVATED SYSTOLIC BP Last administered on 03/10/17 18:49; Admin Dose 0.1 MG; Start 03/09/17 at 20:30; Status Future hold Multivitamins/ Minerals (Theragran-M) 1 tab DAILY PO Last administered on 03/27 08:56; Admin Dose 1 TAB; Start 03/11/17 at 09:00; Status Future hold Ascorbic Acid (Vitamin C) 500 mg BID PO Last administered on 03/27/17 08:56; Admin Dose 500 MG; Start 03/10/17 at 21:00; Status Future hold Zinc Sulfate (Zinc Sulfate) 220 mg DAILY PO Last administered on 03/27/17 08: 56; Admin Dose 220 MG; Start 03/11/17 at 09:00; Status Future hold Miscellaneous Information 1 ea NOTE XX ; Start 03/10/17 at 16:30; Status Future hold Glucose (Glutose) 15 gm Q15M PRN PO DECREASED GLUCOSE; Start 03/10/17 at 16:30 ; Status Future hold Glucose (Glutose) 22.5 gm Q15M PRN PO DECREASED GLUCOSE; Start 03/10/17 at 16: 30; Status Future hold Dextrose (D50w Syringe) 25 ml Q15M PRN IV DECREASED GLUCOSE; Start 03/10/17 at 16:30; Status Future hold Dextrose (D50w Syringe) 50 ml Q15M PRN IV DECREASED GLUCOSE; Start 03/10/17 at 16:30; Status Future hold Glucagon (Glucagen) 1 mg Q15M PRN IM DECREASED GLUCOSE; Start 03/10/17 at 16: 30; Status Future hold Glucose (Glutose) 15 gm Q15M PRN BUCCAL DECREASED GLUCOSE; Start 03/10/17 at 16:30; Status Future hold Hydralazine HCl (Apresoline) 10 mg Q6H PRN IV ELEVATED BLOOD PRESSURE Last administered on 03/22/17 12:55; Admin Dose 10 MG; Start 03/10/17 at 18:00; Status Future hold Thiamine HCl (Vitamin B1) 100 mg DAILY PO Last administered on 03/27/17 08:56 ; Admin Dose 100 MG; Start 03/12/17 at 09:00; Status Future hold Folic Acid (Folic Acid) 1 mg DAILY PO Last administered on 03/27/17 08:56; Admin Dose 1 MG; Start 03/12/17 at 09:00; Status Future hold Labetalol HCl (Labetalol) 10 mg Q4H PRN IV SBP >160, HR>100 Last administered on 03/11/17 15:13; Admin Dose 10 MG; Start 03/11/17 at 14:30; Status Future hold Aspirin (Ecotrin) 325 mg BID PO Last administered on 03/27/17 08:56; Admin Dose 325 MG; Start 03/14/17 at 09:00 Pantoprazole (Protonix Tab) 40 mg DAILY@06 PO Last administered on 03/26/17 06:35; Admin Dose 40 MG; Start 03/14/17 at 06:00 Docusate Sodium/ Ferrous Fumarate ([place]-Sequels) 1 tab BID PO Last administered on 03/27/17 08:56; Admin Dose 1 TAB; Start 03/14/17 at 09:00 Simethicone (Mylicon) 80 mg TID PRN PO DISTENSION/GAS/BLOATING; Start at 14:00 Senna/Docusate Sodium (Senokot-S) 2 tab BID PRN PO CONSTIPATION; Start at 14:00 Magnesium Hydroxide (Milk Of Mag) 30 ml HS PRN PO CONSTIPATION; Start at 14:00 Bisacodyl (Dulcolax Supp) 10 mg DAILY PRN [place] CONSTIPATION; Start 03/13/17 at 14:00 Sodium Biphosphate/ Sodium Phosphate (Fleet Enema) 133 ml DAILY PRN [place] CONSTIPATION; Start 03/13/17 at 14:00 Diphenhydramine HCl (Benadryl) 25 mg Q4H PRN IM ITCHING OR RASH; Start at 14:00 Naloxone HCl (Narcan) 0.2 mg Q2M PRN IV DECREASED REPIRATORY RATE; Start at 14:00 Amlodipine Besylate (Norvasc) 10 mg DAILY PO Last administered on 03/27/17 10 :13; Admin Dose 10 MG; Start 03/19/17 at 09:00 Insulin Glargine (Lantus) 10 unit DAILY@20 SC Last administered on 03/26/17 20:08; Admin Dose 10 UNIT; Start 03/18/17 at 20:00 Lorazepam (Ativan) 1 mg Q4 PRN PO ANXIETY Last administered on 03/24/17 20:20 ; Admin Dose 1 MG; Start 03/18/17 at 22:30 Nitroglycerin (Nitroglycerin (Sl Tab) 0.4 Mg) 1 tab Q5M PRN SL ANGINA Last administered on 03/22/17 07:56; Admin Dose 1 TAB; Start 03/22/17 at 08:00 Morphine Sulfate (morphine) 2 mg PRN PRN IV IF SL NTG NOT EFFECTIVE; Start at 08:00 Metoprolol Tartrate (Lopressor) 50 mg BID PO Last administered on 03/27/17 10 :14; Admin Dose 50 MG; Start 03/22/17 at 21:00 Lisinopril (Zestril) 10 mg DAILY PO ; Start 03/28/17 at 09:00 KRISH SANTIAGO MD Mar 27, 2017 13:24
[2017-03-27] MEDS ORDERED: AMLO5TAB4 PO (13:29)
[2017-03-27] MEDS ORDERED: ASC500 PO (13:29)
[2017-03-27] MEDS ORDERED: ASPI325T32 PO (13:29)
[2017-03-27] MEDS ORDERED: MULT-843 PO (13:29)
[2017-03-27] MEDS ORDERED: THIA100T56 PO (13:29)
[2017-03-27] MEDS ORDERED: METF500T4 PO (13:37)
[2017-03-27] MEDS ORDERED: ASPI-664 PO (13:38)
--- NOTE | 2017-03-27 13:38 | PDOCDIS ---
Discharge Instructions DIAGNOSIS Discharge Diagnosis 1. Acute left femoral neck fracture s/p left hip hemiarthroplasty 2. Acute encephalopathy- resolved 3. KIT- improving 4. Hyponatremia- resolved 5. Diabetes Mellitus, well controlled 6. Anemia 7. HTN 8. ETOH abuse CONDITION Patient Condition: Fair HOME CARE INSTRUCTIONS: Diet Instructions: Low Fat /Cholesterol (SOFT, CARB CONTROLLED)Special Diet: low carbohydrate, low sugar ACTIVITY: Activity Restrictions: Slowly Increase Activity Rest between Activity Avoid heavy lifting Do not Drive Avoid Heavy Housework Bathing Restrictions: Shower FOLLOW UP/APPOINTMENTS Follow-up Plan 1. Follow up with your primary care physician 2. Have home health check your sugars and if ranging greater than 200 often, call your PCP 3. Continue taking Aspirin 325 mg twice a day for 14 more days then continue with Aspirin 81mg daily 4. Take Metformin twice a day for diabetes 5. Avoid foods high in sugar or carbohydrates 6. Follow-up with Dr. Ponce in outpatient office 1-2 weeks. 7. Continue all medications as prescribed 8. Avoid alcohol use but if you still plan to drink, only in moderation of 1 drink 2 times a week to avoid any further falls or injuries REFERRALS Other Referrals Yasmin Burrell MD Specialty: Orthopedic Surgery Office Address [id number] [place] [address] Office KRISH SANTIAGO MD Mar 27, 2017 13:38
[2017-03-27] MEDS ORDERED: MELA1TAB15 PO (13:51)
--- NOTE | 2017-03-27 13:51 | DS ---
Date/Time of Note Date/Time of Note DATE: 03/27/17 TIME: 13:50 Discharge Summary Admission/Discharge Info Admit Date/Time Mar 09, 2017 at 08:20 Discharge Date/Time Discharge Diagnosis 1. Acute left femoral neck fracture s/p left hip hemiarthroplasty 2. Acute encephalopathy- resolved 3. KIT- improving 4. Hyponatremia- resolved 5. Diabetes Mellitus, well controlled 6. Anemia 7. HTN 8. ETOH abuse Patient Condition: Fair Consults Orthopedic surgery Procedures 1. Left hip hemiarthroplasty Hx of Present Illness 71 yo with PMH DM. HTN, and alcohol abuse presented to ED after experiencing a fall. Patient daughter at bedside and history obtained from patient as well as family. Patient is noncompliant and does not take medications as prescribed. Per daughter, patient drinks 2 times per week but when he does drink, its in mass quantities. Patient does not recall what brought him to the hospital or that he fell. Patient is c/o severe pain in left hip and unable to lay in bed due to discomfort. Denies any numbness, tingling, nausea, vomiting, chest pain, or shortness of breath. Patient stated he does not want to live like he has been, needing to take medications all the time but denies any suicidal ideations. Per daughter, patient does not listen and falls often while intoxicated with recent admission to [facility] for head trauma. Hospital Course Patient was admitted for management of acute left femoral neck fracture s/p fall while intoxicated. Patient underwent left hip hemiarthroplasty and tolerated surgery well. Patient was originally thought to be a chronic alcoholic and daily drinker however upon further inquiry with patient's daughter after surgery, patient only drank twice a week, however he was drinking heavily when he does drink. Originally patient was thought to have daily drinks and was started on a fairly high dose of Librium and was tapered, due to Librium was long washout, patient was confused and altered for many days after the surgery. Patient was started on BP medications as well as glucose control since was noncompliant as outpatient. Patient was evaluated by PT and initially recommended to go to acute rehab. Due to insurance issues, discharge was delayed and patient continued to work with physical therapy in house. Patient was able to ambulate with front wheel walker and determined to be too high function for acute rehab. Arrangements were made for home health and physical therapy and daughter planned to look into Adult day care as well. Patient was discharged with BP medications and due to HbA1c of only 6.1, discharge with prescription for Metformin with no need for SC Insulin. Patient instructed to follow-up with orthopedic surgery in 2 weeks. He was also given a script for full dose aspirin BID for DVT prophylaxis for another 2 week to complete 30 day course and then continue on low dose aspirin given comorbidities. Patient discharged home in good condition. Home Meds Active Scripts Melatonin (Melatonin) 1 Mg Tablet, 1 MG PO HS for 30 Days, #30 TAB Prov:KRISH SANTIAGO MD 03/27/17 Aspirin (Aspirin Low Dose) 81 Mg Tablet., 81 MG PO DAILY for 30 Days, #30 TAB Prov:KRISH SANTIAGO MD 03/27/17 Metformin* (Glucophage*) 500 Mg Tab, 500 MG PO WITH BREAKFAST DINNE for 30 Days , #60 TAB Prov:KRISH SANTIAGO MD 03/27/17 Ascorbic Acid (Vitamin C) 500 Mg Tab, 500 MG PO BID for 30 Days, #30 TAB Prov:KRISH SANTIAGO MD 03/27/17 Thiamine* (Vitamin B-1*) 100 Mg Tablet, 100 MG PO DAILY for 30 Days, #30 TAB Prov:KRISH SANTIAGO MD 03/27/17 Multivits,Ca,Minerals/Iron/FA (Thera M Plus Tablet) 1 Each Tablet, 1 TAB PO DAILY for 30 Days, #30 TAB Prov:KRISH SANTIAGO MD 03/27/17 Aspirin (Aspir-Pia) 325 Mg Tablet., 325 MG PO BID for 14 Days, #28 TAB Prov:KRISH SANTIAGO MD 03/27/17 Metoprolol Tartrate* (Lopressor*) 25 Mg Tab, 50 MG PO BID for 30 Days, TAB Prov:FIORDALIZA CANTU 03/23/17 Ferrous Fumarate/Ascorbic Acid (Smith-Sequels 65-25 mg [place]) 1 Each Tablet.er , 1 TAB PO BID for 30 Days, #60 TAB Prov:FIORDALIZA CANTU 03/20/17 Amlodipine Besylate* (Amlodipine Besylate*) 5 Mg Tablet, 10 MG PO DAILY for 30 Days, #60 TAB Prov:FIORDALIZA CANTU 03/20/17 Follow-up Plan 1. Follow up with your primary care physician 2. Have home health check your sugars and if ranging greater than 200 often, call your PCP 3. Continue taking Aspirin 325 mg twice a day for 14 more days then continue with Aspirin 81mg daily 4. Take Metformin twice a day for diabetes 5. Avoid foods high in sugar or carbohydrates 6. Follow-up with Dr. Ponce in outpatient office 1-2 weeks. 7. Continue all medications as prescribed 8. Avoid alcohol use but if you still plan to drink, only in moderation of 1 drink 2 times a week to avoid any further falls or injuries Primary Care Provider Care Physician No Primary Time spent on discharge: > 30 minutes Pending Labs Laboratory Tests Test 03/26/17 17:15 03/26/17 20:01 03/27/17 02:02 03/27/17 05:05 Bedside Glucose 143mg/dL (70-220) 217mg/dL (70-220) 95mg/dL (70-220) Sodium Level 142mmol/L (135-144) Potassium Level 4.2mmol/L (3.5-5.1) Chloride Level 101mmol/L (97-110) Carbon Dioxide Level 32mmol/L (21-31) Anion Gap 13 (8-16) Blood Urea Nitrogen 27mg/dl (7-20) Creatinine 1.65mg/dl (0.61-1.24) Glucose Level 67mg/dl (70-220) Calcium Level 9.2mg/dl (8.4-10.2) Phosphorus Level 4.7mg/dl (2.5-4.9) Magnesium Level 2.5mg/dl (1.7-2.5) Albumin 3.7g/dl (3.3-4.9) Test 03/27/17 08:03 03/27/17 12:47 Bedside Glucose 94mg/dL (70-220) 152mg/dL (70-220) KRISH SANTIAGO MD Mar 27, 2017 13:51
[2017-03-28] MEDS ORDERED: LISINOPRIL 10 MG TAB PO SCH (09:00)
== END 2017-03-27 19:00 | disposition home health service (06) | DRG 469 ==
LOC: E/R 02:22 → MS1 08:20 → EDBD 08:20 → TEL 03-11 17:05 → MS1 03-14 20:15
PROVIDERS: ADMIT Internal Medicine; ATTEND Internal Medicine
PROC: 0SRS01Z Replacement of Left Hip Joint, Femoral Surface with Metal Synthetic Substitute, Open Approach (ICD-10-PCS; principal; 2017-03-13 12:00)
DX: S72.032A Displaced midcervical fracture of left femur, initial encounter for closed fracture (principal); G93.49 Other encephalopathy; N17.9 Acute kidney failure, unspecified; E87.1 Hypo-osmolality and hyponatremia; E11.9 Type 2 diabetes mellitus without complications; I10 Essential (primary) hypertension; D64.9 Anemia, unspecified; D72.829 Elevated white blood cell count, unspecified; Z91.14 Patient's other noncompliance with medication regimen; W19.XXXA Unspecified fall, initial encounter; R00.0 Tachycardia, unspecified; F10.10 Alcohol abuse, uncomplicated
CPT/HCPCS: 36415; 70450; 71010; 72125; 72170; 73500; 73510; 73530; 80048; 80053; 80069; 80306; 81001; 82140; 82962; 83036; 83735; 84100; 84439; 84443; 84484; 85025; 85610; 85730; 87040; 87086; 88304; 88311; 90686; 93005; 93306; 96374; 96375; 97003; 97110; 97116; 97162; 97163; 97167; 97530; 97535; C1776; J0171; J0360; J0690; J0697; J0735; J1100; J1170; J1630; J1644; J1815; J1885; J2060; J2250; J2270; J2274; J2370; J2405; J2795; J3010; J3475; J7030; J7121